=== PATIENT | female | born 1940 | race Caucasian/White ===

== ENCOUNTER 2023-09-23 00:21 | Inpatient (IN) | payer OTHER, SELFPAY ==
[2023-09-22] VITALS (25 sets, daily range): BP systolic 113–206; BP diastolic 74–134; PULSE 2–145
--- NOTE | 2023-09-22 20:56 | ED.GENMED ---
History of Present Illness
<Vianca Ty PA-C - Last Filed: 09/23/23 00:53>
General
Chief Complaint: Breathing Problem
Source: patient
Exam Limitations: none
Time Seen by Provider: 09/22/23 20:36
Nursing documentation reviewed up to this point in time: agreed with
Travel History
Have you had any contact with someone who has COVID-19?: Yes
Comment: exposure at [facility]
Do you have any symptoms of coronavirus? Fever > 100 degrees, chills, cough, shortness of breath, sore throat, loss of taste or smell, muscle aches, or headache?: Unable to Answer
History of Present Illness
History of Present Illness:
This is a 83-year-old female who is arriving via EMS in acute respiratory distress. She comes from [facility]. She is in acute respiratory distress and has oral secretions. She is not able to provide much history due to her severe respiratory
distress, however it seems that the symptoms of shortness of breath started today and have rapidly gotten worse as the day progressed. Her roommate and [facility] did test positive for COVID. Patient has never had anything like this before.
Past History
<Vianca Ty PA-C - Last Filed: 09/23/23 00:53>
Past History
ED Past Medical History: Hypercholesterolemia
ED Past Surgical History: Orthopedic (R hip surg.)
Social History
Tobacco: Non-smoker
Alcohol: None
Personal:
Living: alone
Review of Systems
<Vianca Ty PA-C - Last Filed: 09/23/23 00:53>
Review of Systems
All Other Systems: ROS reviewed and negative except as documented in HPI and ROS
Phy Exam
<Vianca Ty PA-C - Last Filed: 09/23/23 00:53>
Physical Exam
Physical Exam:
General: Patient appears very ill, in acute respiratory distress, and is very anxious
Skin: Patient is very diaphoretic. Patient has significant bilateral non-pitting lower extremity edema. No rashes or lesions
Cardiac: Tachycardia, systolic murmur
Pulm: Patient demonstrates pursed lip breathing, audible rhonchi, demonstrates air hunger. Diffuse rhonchi heard in every lung base.
Scores
<Vianca Ty PA-C - Last Filed: 09/23/23 00:53>
Heart Failure Risk
Heart Failure Risk Score: Yes
History of Stroke or TIA: No
History of intubation for respiratory distress: Yes
Heart rate on ED arrival >/= 110: Yes
SaO2 <90% on arrival on room air: Yes
HR >/=110 during 3min walk test (or too ill to perform test): No
ECG has acute ischemic changes: No
Urea >/=12mmol/L (BUN 33.6mg/dL): No
Serum CO2>/=35mmol/L: No
Troponin I or T elevated to MD Level (0.4mg/dL): No
NT-proBNP >/=5,000ng/L (5,000pg/ml): Yes
HF Risk Score: 4
Admission Status: HIGH RISK 26.1% Consider SNF treatment or admission to hospital
Course
<Vianca Ty PA-C - Last Filed: 09/23/23 00:53>
Orders/Labs/Results
Orders:
Orders
09/22/23 20:44
CR Chest Portable - 1 View Urgent
Comment:
Reason For Exam: shortness of breath
Reason Study Needs to be Portable: Patient Unstable
09/22/23 20:48
Bipap [RESP] Urgent
Patient to use own unit?: No
Inspiratory Pressure (cm H2O): 12
Expiratory Pressure (cm H2O): 5
09/22/23 20:52
Albuterol Sulfate [Ventolin Nebules] 7.5 mg INH R NOW STA
Dexamethasone Sod Phosphate [Decadron] 10 mg IV NOW STA
Ipratropium Nebs [Atrovent Nebules] 1 mg INH R NOW STA
09/22/23 21:17
Furosemide [Lasix] 100 mg .ROUTE .STK-MED ONE
Furosemide [Lasix] 80 mg IV NOW STA
09/22/23 21:20
Complete Blood Count/With Diff Urgent
Comprehensive Metabolic Panel Urgent
Lactic Acid Q4H
Comment: CANCEL 2nd LACTIC ACID IF 1st LACTIC ACID IS LESS THAN 2
Magnesium Urgent
NT-proBNP Urgent
Troponin I Urgent
Blood Culture Q30M
MICHELLE Source: Blood/Venous
Specimen Description:
Blood Culture Q30M
MICHELLE Source: Blood/Venous
Specimen Description:
09/22/23 21:32
Piperacillin/Tazo 3.375 Gram [Zosyn] 3.375 gram in 50 ml IV NOW
09/22/23 21:35
Vancomycin 1 Gram/200 ml [Vancocin] 1 gram in 200 ml IV NOW
09/22/23 21:44
COVID-19 Antigen Urgent
Source: Nasal Swab
Influenza A+B Rapid Molecular Urgent
MICHELLE Source: Nasal Swab
Specimen Description:
09/22/23 21:51
Venous Blood Gas Urgent
%Oxygen/Room Air: BiPAP
09/22/23 22:07
Lorazepam [Ativan] 0.5 mg IV NOW STA
09/22/23 22:10
PTT Routine
Prothrombin Time Routine
09/22/23 22:14
Respiratory Syncytial Virus Urgent
MICHELLE Source: Nasal Swab
Specimen Description:
Date Specimen was Collected: 09/22/23
Time Specimen was Collected: 21:57
09/22/23 22:38
CR Chest Portable - 1 View Stat
Comment:
Reason For Exam: post intubation
Reason Study Needs to be Portable: Patient Unstable
09/22/23 22:41
Propofol 1,000,000 Mcg/100 ml [Diprivan] 1,000,000 mcg in 100 ml IV NOW
Indication:: Light Sedation
Begin Infusion:: Now
Goal:: RASS 0 to -2
Maximum dose in mcg/kg/min:: 50
Initial dose based on RASS:: Yes
If RASS is:: +1 or pt hemodynamically unstable (SBP < 90mmHg), initiate at 10 mcg/kg/min
If RASS is:: +2, initiate at 20 mcg/kg/min
If RASS is:: greater than or equal to +3, initiate at 30 mcg/kg/min
Titration Instructions:: Titrate by 5-10 mcg/kg/min every 5 minutes until RASS 0 to -2 achieved.
Taper Instructions:: If RASS is at or below goal for 4 consecutive hours decrease infusion by
Taper Instructions:: 5-10 mcg/kg/min every 2 hours to off.
Over-sedation Instructions:: If CPOT 0-2 (at goal) AND RASS -3 to -5 (below goal) decrease sedative by
Over-sedation Instructions:: 50% first. If pain score remains at goal and RASS remains below goal in
Over-sedation Instructions:: 1 hour, decrease opioid infusion by 50%.
Notify provider:: immediately if patient exhibits signs/symptoms of propofol-related
Notify provider:: infusion syndrome.
Additional Instructions:: Patient MUST be mechanically ventilated.
Ventilator Initial Settings [RESP] Urgent
Tidal Volume: 500
Rate: 14
FIO2: 100
PEEP: 10
09/22/23 22:42
Triglycerides Routine
Comment: baseline levels with propofol infusion
09/22/23 23:06
Wallis Catheter [Catheter- Indwelling] As Directed
Reason for insertion: I&O's Critical Care
Assess insertion reason daily.Remove if no longer applicable: Yes
09/22/23 23:09
Admit/Transfer Patient As Directed
Co-Sign Provider:
Level of Care: Inpatient admission
Assign to:: ICU
Physician / Group: Sidney
Diagnosis: Acute Hypoxemic Resp Failure
Reason for Hospitalization: Acute Resp Failure
Expected length of stay greater than two midnights?: Yes
ELOS- Estimated Length of Stay in days: 5
I certify the patient meets the requirements for IP care: Yes
09/22/23 23:10
Code Status As Directed
Resuscitation Status: Do not resuscitate
Reached after discussion with pt or family/Healthcare POA: Yes
09/22/23 23:15
Nitroglycerin 100 mg/250 ml [Nitroglycerin Premix] 100 mg in 250 ml IV PER PROTOCOL
Initial dose in mcg/min, then titrate:: 5
Titrate to keep:: SBP < 160 mmHg
Titrate by mcg/min:: 5 mcg/min, may increase by 10 mcg/min if dose > 20 mcg/min
Frequency of titrations (minutes):: every 3-5 minutes
Maximum dose in mcg/min:: 200
Begin to taper infusion when:: Remained at goal for 2hrs
Taper by mcg/min:: 5 mcg/min
Frequency of taper (minutes) if patient maintains goal:: 30
Taper to off?: Yes
If infusion off & no longer maintaining goal:: Contact Provider
09/22/23 23:17
Vancomycin 1 Gram/200 ml [Vancocin] 1 gram in 200 ml .ROUTE .STK-MED
09/22/23 23:28
DNR Bracelet Application ONCE
09/23/23 01:00
Lactic Acid Q4H
Comment: CANCEL 2nd LACTIC ACID IF 1st LACTIC ACID IS LESS THAN 2
Abnormal Lab Results
01/26/24 01/26/24 01/26/24
21:20 21:44 21:51
WBC 11.9 H 10^3/uL
(4.8-10.8)
RBC 5.71 H 10^6/uL
(4.20-5.40)
Hgb 16.9 H g/dL
(12.0-16.0)
Hct 53.7 H %
(37.0-47.0)
MCHC 31.5 L g/dL
(33.0-37.0)
RDW 15.1 H %
(11.5-14.5)
MPV 12.6 H fL
(7.4-10.4)
Abs Immat Gran (auto) 0.1 H 10^3/uL
(0-0.05)
Absolute Neuts (auto) 8.2 H 10^3/uL
(1.4-6.5)
Absolute Monos (auto) 0.7 H 10^3/uL
(0.1-0.6)
Immature Gran % 0.7 H %
(0-0.5)
Lymphocytes % 20.0 L %
(20.5-51.1)
VBG pH 7.21 L
(7.32-7.43)
VBG pCO2 54 H mmHg
(35-48)
VBG HCO3 21.6 L mmol/L
(22-27)
BUN 23 H mg/dl
(7-17)
Creatinine 1.3 H mg/dL
(0.6-1.0)
Glucose 221 H mg/dl
(70-99)
Lactic Acid 4.9 H* mmol/L
(0.7-2.0)
Magnesium 2.5 H mg/dl
(1.6-2.3)
Alkaline Phosphatase 140 H U/L
(38-126)
SARS-CoV-2 Antigen Positive A
(Negative)
09/22/23 21:20
09/22/23 21:20
Vital Signs
Initial and Last Documented VS:
Initial Vital Signs
Pulse Ox
90
09/22/23 20:41
Last Documented Vital Signs
Temp Pulse Resp BP Pulse Ox
100.3 F 125 16 135/88 84
09/22/23 23:50 09/22/23 23:55 09/22/23 23:55 09/22/23 23:55 09/22/23 23:55
<Joselo Miles, DO - Last Filed: 09/22/23 22:44>
Orders/Labs/Results
Orders:
Orders
09/22/23 20:44
CR Chest Portable - 1 View Urgent
Comment:
Reason For Exam: shortness of breath
Reason Study Needs to be Portable: Patient Unstable
09/22/23 20:48
Bipap [RESP] Urgent
Patient to use own unit?: No
Inspiratory Pressure (cm H2O): 12
Expiratory Pressure (cm H2O): 5
09/22/23 20:52
Albuterol Sulfate [Ventolin Nebules] 7.5 mg INH R NOW STA
Dexamethasone Sod Phosphate [Decadron] 10 mg IV NOW STA
Ipratropium Nebs [Atrovent Nebules] 1 mg INH R NOW STA
09/22/23 21:17
Furosemide [Lasix] 100 mg .ROUTE .STK-MED ONE
Furosemide [Lasix] 80 mg IV NOW STA
09/22/23 21:20
Complete Blood Count/With Diff Urgent
Comprehensive Metabolic Panel Urgent
Lactic Acid Q4H
Comment: CANCEL 2nd LACTIC ACID IF 1st LACTIC ACID IS LESS THAN 2
Magnesium Urgent
NT-proBNP Urgent
Troponin I Urgent
Blood Culture Q30M
MICHELLE Source: Blood/Venous
Specimen Description:
Blood Culture Q30M
MICHELLE Source: Blood/Venous
Specimen Description:
09/22/23 21:32
Piperacillin/Tazo 3.375 Gram [Zosyn] 3.375 gram in 50 ml IV NOW
09/22/23 21:35
Vancomycin 1 Gram/200 ml [Vancocin] 1 gram in 200 ml IV NOW
09/22/23 21:44
COVID-19 Antigen Urgent
Source: Nasal Swab
Influenza A+B Rapid Molecular Urgent
MICHELLE Source: Nasal Swab
Specimen Description:
09/22/23 21:51
Venous Blood Gas Urgent
%Oxygen/Room Air: BiPAP
09/22/23 22:07
Lorazepam [Ativan] 0.5 mg IV NOW STA
09/22/23 22:10
PTT Routine
Prothrombin Time Routine
09/22/23 22:14
Respiratory Syncytial Virus Urgent
MICHELLE Source: Nasal Swab
Specimen Description:
Date Specimen was Collected: 09/22/23
Time Specimen was Collected: 21:57
09/22/23 22:38
CR Chest Portable - 1 View Stat
Comment:
Reason For Exam: post intubation
Reason Study Needs to be Portable: Patient Unstable
09/22/23 22:41
Propofol 1,000,000 Mcg/100 ml [Diprivan] 1,000,000 mcg in 100 ml IV NOW
Indication:: Light Sedation
Begin Infusion:: Now
Goal:: RASS 0 to -2
Maximum dose in mcg/kg/min:: 50
Initial dose based on RASS:: Yes
If RASS is:: +1 or pt hemodynamically unstable (SBP < 90mmHg), initiate at 10 mcg/kg/min
If RASS is:: +2, initiate at 20 mcg/kg/min
If RASS is:: greater than or equal to +3, initiate at 30 mcg/kg/min
Titration Instructions:: Titrate by 5-10 mcg/kg/min every 5 minutes until RASS 0 to -2 achieved.
Taper Instructions:: If RASS is at or below goal for 4 consecutive hours decrease infusion by
Taper Instructions:: 5-10 mcg/kg/min every 2 hours to off.
Over-sedation Instructions:: If CPOT 0-2 (at goal) AND RASS -3 to -5 (below goal) decrease sedative by
Over-sedation Instructions:: 50% first. If pain score remains at goal and RASS remains below goal in
Over-sedation Instructions:: 1 hour, decrease opioid infusion by 50%.
Notify provider:: immediately if patient exhibits signs/symptoms of propofol-related
Notify provider:: infusion syndrome.
Additional Instructions:: Patient MUST be mechanically ventilated.
Ventilator Initial Settings [RESP] Urgent
Tidal Volume: 500
Rate: 14
FIO2: 100
PEEP: 10
09/22/23 22:42
Triglycerides Routine
Comment: baseline levels with propofol infusion
09/22/23 23:06
Wallis Catheter [Catheter- Indwelling] As Directed
Reason for insertion: I&O's Critical Care
Assess insertion reason daily.Remove if no longer applicable: Yes
09/22/23 23:09
Admit/Transfer Patient As Directed
Co-Sign Provider:
Level of Care: Inpatient admission
Assign to:: ICU
Physician / Group: Sidney
Diagnosis: Acute Hypoxemic Resp Failure
Reason for Hospitalization: Acute Resp Failure
Expected length of stay greater than two midnights?: Yes
ELOS- Estimated Length of Stay in days: 5
I certify the patient meets the requirements for IP care: Yes
09/22/23 23:10
Code Status As Directed
Resuscitation Status: Do not resuscitate
Reached after discussion with pt or family/Healthcare POA: Yes
09/22/23 23:15
Nitroglycerin 100 mg/250 ml [Nitroglycerin Premix] 100 mg in 250 ml IV PER PROTOCOL
Initial dose in mcg/min, then titrate:: 5
Titrate to keep:: SBP < 160 mmHg
Titrate by mcg/min:: 5 mcg/min, may increase by 10 mcg/min if dose > 20 mcg/min
Frequency of titrations (minutes):: every 3-5 minutes
Maximum dose in mcg/min:: 200
Begin to taper infusion when:: Remained at goal for 2hrs
Taper by mcg/min:: 5 mcg/min
Frequency of taper (minutes) if patient maintains goal:: 30
Taper to off?: Yes
If infusion off & no longer maintaining goal:: Contact Provider
09/22/23 23:17
Vancomycin 1 Gram/200 ml [Vancocin] 1 gram in 200 ml .ROUTE .STK-MED
09/22/23 23:28
DNR Bracelet Application ONCE
09/23/23 01:00
Lactic Acid Q4H
Comment: CANCEL 2nd LACTIC ACID IF 1st LACTIC ACID IS LESS THAN 2
Abnormal Lab Results
09/22/23 09/22/23 09/22/23
21:20 21:44 21:51
WBC 11.9 H 10^3/uL
(4.8-10.8)
RBC 5.71 H 10^6/uL
(4.20-5.40)
Hgb 16.9 H g/dL
(12.0-16.0)
Hct 53.7 H %
(37.0-47.0)
MCHC 31.5 L g/dL
(33.0-37.0)
RDW 15.1 H %
(11.5-14.5)
MPV 12.6 H fL
(7.4-10.4)
Abs Immat Gran (auto) 0.1 H 10^3/uL
(0-0.05)
Absolute Neuts (auto) 8.2 H 10^3/uL
(1.4-6.5)
Absolute Monos (auto) 0.7 H 10^3/uL
(0.1-0.6)
Immature Gran % 0.7 H %
(0-0.5)
Lymphocytes % 20.0 L %
(20.5-51.1)
VBG pH 7.21 L
(7.32-7.43)
VBG pCO2 54 H mmHg
(35-48)
VBG HCO3 21.6 L mmol/L
(22-27)
BUN 23 H mg/dl
(7-17)
Creatinine 1.3 H mg/dL
(0.6-1.0)
Glucose 221 H mg/dl
(70-99)
Lactic Acid 4.9 H* mmol/L
(0.7-2.0)
Magnesium 2.5 H mg/dl
(1.6-2.3)
Alkaline Phosphatase 140 H U/L
(38-126)
SARS-CoV-2 Antigen Positive A
(Negative)
09/22/23 21:20
09/22/23 21:20
Vital Signs
Initial and Last Documented VS:
Initial Vital Signs
Pulse Ox
90
09/22/23 20:41
Last Documented Vital Signs
Temp Pulse Resp BP Pulse Ox
100.3 F 125 16 135/88 84
09/22/23 23:50 09/22/23 23:55 09/22/23 23:55 09/22/23 23:55 09/22/23 23:55
<Joselo Miles DO - Last Filed: 09/22/23 22:44>
Intubations
Procedure completed by: Joselo Miles DO
Method of Intubation: glidescope
Tube size (cm): 7.5
Placement confirmed by: auscutation, CXR, capnography and direct visualization
Breath sounds after intubation: equal
Intubation complications: no complications
<Vianca Ty PA-C - Last Filed: 09/23/23 00:53>
MDM/Problems Addressed
Differential Diagnosis Includes:
Differentials include pneumonia, ARDS, acute CHF, sepsis, flash pulmonary edema, COPD
MDM/Problems Addressed:
shortness of breath
Respiratory failure
Chronic conditions affecting care:
Hypertension, hyperlipidemia, anxiety, depression, hypothyroidism
<Vianca Ty PA-C - Last Filed: 09/23/23 00:53>
*Radiology
Radiology exam reviewed: preliminary read by ED provider (Bilateral infiltrates)
*Pulse Oximetry
Patient hypoxic: yes
*EKG
Interpreted by ED Provider?: Yes
EKG Intrepretation Date: 09/23/23
Interpretation: abnormal
Comparison EKG: changes noted (new non-specific ST segment abnormality )
Heart Rate: 141
Rate: tachycardiac
Rhythm: sinus
[place]: normal axis
Interval: normal interval
QRS Pattern: normal QRS
Ischemia: non-specific ST changes
Data Reviewed
Review of Other/Old Records Reveals: Records (No recent hospitalizations) and Discharge Summary (Reviewed discharge summary from March 2021 for hyperkalemia)
Source: patient
Prescriptions/Medications Considered But Not Given:
Patient presented with severe respiratory distress, we had to initiate BiPAP. Patient was failing BiPAP and multiple reassessments however patient stated that she was DNI and did not want to be intubated. As patient further decline, she changed
her mind and decided that she would like to be intubated.
Further Testing Considered But Not Given:
n/a
<Joselo Miles DO - Last Filed: 09/22/23 22:44>
*Critical Care Note
Total Time (30-74mins, 75-104mins- exclusive of procedures): 35 min
comment:
The high probability of a clinically significant, sudden or life threatening deterioration of the cardiopulmonary system(s) required my full and direct attention, intervention and personal management. The aggregate critical care time was 35 minutes.
This time is in addition to time spent performing reported procedures but includes the following:
[x] Data Review and interpretation
[x] Patient assessment and monitoring of vital signs
[x] Documentation
[x] Medication orders and management
<Vianca Ty PA-C - Last Filed: 09/23/23 00:53>
Patient Management
Escalation/DeEscalation of care consider admission/obs:
This is a 83-year-old female with a past medical history of hypertension, hypothyroidism, anxiety who presents today via EMS in severe respiratory distress. She was 88% on room air upon arrival. She was feeling supplemental oxygen therapy via
nasal cannula and mask and so we initiated BiPAP. Patient was repeatedly failing BiPAP however patient was do not intubate. When reassessing her, she progressed to decline and not make any improvements with BiPAP. There was an indication for
intubation very early on however patient initially refused and after. Time, she finally requested intubation. She tested positive for COVID and her chest x-ray reveals bilateral pneumonia. She was successfully intubated, started on IV
antibiotics, steroids, Lasix, and referred for ICU admission.
<Joselo Miles DO - Last Filed: 09/22/23 22:44>
Update Note
Update Note:
10:10 PM patient still doing poorly on BiPAP. I again urged and suggested intubation and ventilator or else she is going to quickly. At this point, patient gave verbal consent to be intubated
10:43 PM patient intubated without difficulty.
ED Attending Note
<Vianca Ty PA-C - Last Filed: 09/23/23 00:53>
-
Portions of this chart may have been created with voice recognition software.� Occasional wrong word or��sound alike� substitutions may have occurred due to the inherent limitations of voice recognition software.
<Joselo Miles, DO - Last Filed: 09/22/23 22:44>
ED Attending Note
Patient seen and examined by attending physician: Yes
I performed the substantive portion of visit, reviewed & personally made and approve the management plan that is documented in note by myself or REINA.: Yes
ED Attending Note:
I have seen and evaluated the patient with a [id number] encounter. I have spoken to the advance practicer provider and involved in the medical history, the physical exam, medical decision making.
Evaluation and management service: agree unless noted differently below.
Results interpretation: agree unless noted differently below.
Focused HPI: 83-year-old female presenting with worsening shortness of breath. Patient states she was exposed to COVID recently. On arrival, patient significantly short of breath. She has air hunger. She has crackles and rhonchi throughout.
Patient placed on a nonrebreather. Patient still doing poorly and respiratory called for BiPAP. Patient able to communicate. I discussed my concern for her significant respiratory distress and we discussed possible intubation if symptoms persist.
I also discussed my concern for respiratory arrest and CPR. Patient refused either 1 of those. Patient appears to have the capacity to make the decision
Physical exam: Air hunger, rhonchorous breath sounds and crackles at bases. Edematous legs.
Medical Decision Making: Patient placed on BiPAP. Patient currently in hypoxic respiratory distress. Outpatient chart reviewed and patient is on Lasix. Will give 80 mg IV Lasix. Will start hour-long nebulizer treatment and IV steroids.
9:40 PM while on BiPAP, patient still struggling. At this time, x-ray concerning for multilobar pneumonia. Will start antibiotics. I again asked the patient if we could intubate and place on ventilator. She again refused.
Discharge Plan
Interventions
Interventions:
*Risk Screen - Suicide Last Done: 09/22/23 20:45
*General Assessment Last Done: 09/22/23 20:45
*Neglect/Abuse Screening Last Done: 09/22/23 20:45
ED- Fall Risk Assessment Last Done: 09/22/23 20:55
*ED COVID-19 Vaccine History Last Done: 09/22/23 20:55
*Nursing Disposition Last Done: 09/23/23 00:31
ED- Cardiac Assessment Last Done: 09/22/23 20:55
ED- Pulmonary Assessment Last Done: 09/22/23 20:55
[2023-09-22] MEDS: ATROVENT NEBULES 1 MG INH (21:15)
[2023-09-22] MEDS: VENTOLIN NEBULES 7.5 MG INH (21:16)
[2023-09-22] MEDS: DECADRON 10 MG IV (21:16)
[2023-09-22] MEDS: LASIX 80 MG IV (21:27)
[2023-09-22 21:34] LABS: % Eosinophils 3.3 % (0-6); % Immature Granulocytes 0.7 % (0-0.5); % Monocytes 5.9 % (1.7-9.3); % Neutrophils 69.1 % (42.2-75.2); Absolute Basophils 0.1 10^3/uL (0-0.2); Absolute Eosinophils 0.4 10^3/uL (0-0.7); Absolute Immature Granulocytes 0.1 10^3/uL (0-0.05); Absolute Lymphocytes 2.4 10^3/uL (1.2-3.4); Absolute Monocytes 0.7 10^3/uL (0.1-0.6); Absolute Neutrophils 8.2 10^3/uL (1.4-6.5); Hematocrit 53.7 % (37.0-47.0); Hemoglobin 16.9 g/dL (12.0-16.0); Mean Corp Hgb Conc. 31.5 g/dL (33.0-37.0); Mean Corpuscular Hgb 29.6 pg (27.0-31.0); Mean Platelet Volume 12.6 fL (7.4-10.4); Nucleated Red Blood Cells % 0 %; Platelet Count 289 10^3/uL (130-400); Red Blood Cell Count 5.71 10^6/uL (4.20-5.40); Red Cell Dist. Width 15.1 % (11.5-14.5); White Blood Cell Count 11.9 10^3/uL (4.8-10.8)
[2023-09-22 21:53] LABS: ALT (SGPT) 26 U/L (0-35); AST (SGOT) 33 U/L (14-36); Albumin 4.5 g/dl (3.5-5.0); Alkaline Phosphatase 140 U/L (38-126); Blood Urea Nitrogen 23 mg/dl (7-17); Calcium 9.6 mg/dl (8.4-10.2); Carbon Dioxide 24 mmol/L (22-30); Chloride 102 mmol/L (98-107); Glucose 221 mg/dl (70-99); Magnesium 2.5 mg/dl (1.6-2.3); Sodium 137 mmol/L (135-145); Total Bilirubin 0.7 mg/dl (0.2-1.3); Total Protein 8.2 g/dl (6.3-8.2); eGFR 41.31
[2023-09-22] MEDS: ZOSYN 50 IV (21:55)
[2023-09-22 21:59] LABS: Lactic Acid 4.9 mmol/L (0.7-2.0)
[2023-09-22 22:03] LABS: NT-proBNP 11900 pg/ml; Troponin I 0.031 ng/ml
[2023-09-22 22:09] LABS: COVID-19 Antigen Positive (Negative)
[2023-09-22 22:10] LABS: Venous Blood Gas HCO3 21.6 mmol/L (22-27); Venous Blood Gas O2 Sat % 66.8 %; Venous Blood Gas pCO2 54 mmHg (35-48); Venous Blood Gas pH 7.21 (7.32-7.43); Venous Blood Gas pO2 44 mmHg (30-50)
[2023-09-22 22:38] LABS: PT 13.4 Sec (11.4-14.6)
[2023-09-22 22:39] LABS: APTT 23.6 Sec (23.4-35.0)
--- NOTE | 2023-09-22 23:30 | HPS.HSE ---
Family Physician
-
Family Physician: Loulou Doran
Chief Complaint
-
SOB
History of Present Illness
Patient is an 83y F with PMH significant for hypothyroidism and anxiety / depression who presents to ED via EMS in respiratory distress. Per family, patient was seen well as recently as Monday of this week. There was no known report of cough,
fevers / chills, etc. Patient arrived to the ED this evening in severe respiratory distress. Patient was severely hypoxemic in the ED with saturations into the 60s at times. She did not improve with BiPAP and was intubated in the ED and placed on
ventilatory support.
At the time of my examination, patient was sedated on the ventilator. Despite vent support, her SpO2 remains in the 70s.
Per family, patient has no known history of heart failure or other cardiac issues.
Medical History
Past Medical History
Past Medical History: Reports Other
Additional Past Medical History:
Hypothyroidism
Anxiety / Depression
Dyslipidemia
Obesity
Past Surgical History: Reports Other
Additional Past Surgical History:
Bilateral Wrist ORIF
Bilateral EDIS (2x each)
Social History
Tobacco: Former Smoker (Quit > 50 years ago.)
Alcohol: None
Drug: None
Living: Other ([facility])
Family History
Family History: Not pertinent
Allergies / Home Medications
Allergies reflects when Allergies were last updated in [facility].
Home Medications with original date entered in [facility]
Allergy/Medication List:
Allergies
Allergy/AdvReac Type Severity Reaction Status Date / Time
No Known Allergies Allergy Verified 01/19/17 11:29
Home Medications
atorvastatin 20 mg tablet 20 mg PO QPM High cholesterol 03/11/21
amlodipine 5 mg tablet (Norvasc) 5 mg PO DAILY #30 tabs 03/13/21
aripiprazole 2 mg tablet 2 mg PO HS 09/22/23
furosemide 20 mg tablet (Lasix) 20 mg PO DAILY 09/22/23
levothyroxine 137 mcg tablet (Synthroid) 137 mcg PO DAILY 09/22/23
potassium chloride 10 mEq tablet,extended release 10 meq PO DAILY 09/22/23
venlafaxine 150 mg capsule,extended release 24 hr (Effexor XR) 450 mg PO DAILY 09/22/23
Review of Systems
-
Unable to obtain full review of systems at this time due to: Patient Intubation
Physical Exam
Vital Signs
Vital Signs
Temp Pulse Resp BP Pulse Ox
100.0 F 136 16 195/123 76
09/22/23 20:45 09/22/23 23:00 09/22/23 23:00 09/22/23 23:00 09/22/23 23:00
Physical Exam
General: Other (83y F sedated on vent.)
HEENT: Moist mucous membranes, PERRLA and Other (ETT in place. )
Respiratory: Other (Diffuse rales throughout all lung meeks. No wheezing.)
Cardiac: S1/S2 and Tachycardia; No Murmur
GI: Soft, Non Tender, Non Distended, Normal Bowel Sounds and Other (Obese)
Musculoskeletal: No Clubbing, No Cyanosis and Other (LE are large but without pitting edema.)
Neuro: Sedated
Laboratory Results
-
09/22/23 21:20
09/22/23 21:20
Laboratory Results
PT 13.4 Sec (11.4-14.6) 09/22/23 22:10
INR 1.00 09/22/23 22:10
APTT 23.6 Sec (23.4-35.0) 09/22/23 22:10
Lactic Acid 4.9 mmol/L (0.7-2.0) H* 09/22/23 21:20
Total Bilirubin 0.7 mg/dl (0.2-1.3) 09/22/23 21:20
AST 33 U/L (14-36) 09/22/23 21:20
ALT 26 U/L (0-35) 09/22/23 21:20
Alkaline Phosphatase 140 U/L (38-126) H 09/22/23 21:20
Troponin I 0.031 ng/ml 09/22/23 21:20
Impression/Plan
-
A/P: Patient is an 83y F with PMH significant for hypothyroidism and anxiety / depression who presents to ED in respiratory distress.
Acute Hypoxemic Respiratory Failure
VDRF
- Admit to ICU for further evaluation and treatment.
- Suspect that symptoms are multifactorial due to acute COVID pneumonia and CHF.
- Continue vent support and adjust settings as needed / able to improve oxygenation.
- Pulmonary / Bridge Contractor evaluation.
- Treat individual issues as outlined below.
Acute COVID-19 Pneumonia
- COVID positive in the ED today.
- Patient is vaccinated x multiple doses according to assisted living paperwork.
- Seems unlikely that entire picture is secondary to severe COVID - suspect significant component of CHF as well.
- IV dexamethasone daily.
- Would begin Remdesivir given severe illness.
- Pulm evaluation as noted above.
- Follow proper precautions.
Acute (? on chronic) HF - Unknown Type
Hypertensive Emergency
- Suspect significant degree of CHF - likely exacerbated by acute COVID illness.
- Family denies any history of known CHF; however, note that patient is on Lasix per med list - which she was not on at the time of her last visit here in 2020.
- Son states that most recent admission was to [facility] in June for a fall - will try to obtain those records for review.
- IV Lasix BID and follow for effective diuresis.
- Begin IV NTG gtt now given severe hypoxemia and marked hypertension.
- Update Echo (February 2023 with LVEF 55-60 and mild )
- Cardiology evaluation.
- Additional IV medications as needed for BP control if pressure does not significantly improve with diuresis and IV NTG.
Lactic Acidosis
- Suspect this is mediated on hypoxemia > hypovolemia given evidence of volume overload, etc.
- Avoid IVFs. Correct hypoxemia as noted above.
- Follow for improvement.
JUAN
- SCr = 1.3 compared to baseline of 1.0.
- Follow for changes / return to baseline with IV diuresis as noted above.
- [place] for critical care I/Os.
Hypothyroidism
- Check TFTs.
- Consider IV T4 replacement if necessary while intubated.
- Otherwise, resume PO replacement after extubation.
Anxiety / Depression
- Current intubated and sedated.
- Can resume usual meds once appropriate.
DVT Prophylaxis: Lovenox
Code Status: Reviewed with son in detail. Patient had previously been DNR on 2020 admission and son would like to honor those wishes.
[2023-09-22] MEDS: VANCOCIN 200 IV (23:33)
[2023-09-22] MEDS: DIPRIVAN 100 IV (23:33)
[2023-09-23] VITALS (89 sets, daily range): BP systolic 87–152; BP diastolic 48–112; BMI 39.2; BMI 39.3
[2023-09-23 00:47] LABS: Triglycerides 172 mg/dl (10-149)
--- NOTE | 2023-09-23 00:47 | W.PN.SEPSIS ---
Sepsis
Vital Signs
Temp Pulse Resp BP Pulse Ox
100.3 F 125 16 135/88 84
09/22/23 23:50 09/22/23 23:55 09/22/23 23:55 09/22/23 23:55 09/22/23 23:55
Physical Exam
Physical Exam:
A focused exam was performed after fluid resuscitation.
Capillary Refill
Bilateral Upper Extremity:
Aarti Time: Less than 3 sec
Bilateral Lower Extremity:
Aarti Time: Less than 3 sec
Pulse Evaluation
Bilateral Radial:
Pulse Evaluation: Present
Bilateral Dorsalis Pedis:
Pulse Evaluation: Present
[2023-09-23] MEDS: TYLENOL/FEVERALL 650 MG RECTAL ×4 (01:24→18:06)
--- NOTE | 2023-09-23 01:31 | PTCARENOTE ---
Patient arrived from ED, lightly sedated, withdrawals from pain, tolerating ventilator. Suctioned multiple times for scant duarte secretions. turned and repositioned. Diprivan gtt running through L wrist PIV, thermistor Wallis catheter patent for clear
yellow urine. Tylenol given as ordered. BL wrist restrains applied. HOB elevated and all extremities elevated on pillows.
[2023-09-23] MEDS: SUBLIMAZE 100 IV (01:35)
[2023-09-23 01:37] LABS: Lactic Acid 2.2 mmol/L (0.7-2.0)
[2023-09-23] MEDS: VEKLURY 250 MG IV ×2 (01:42→12:08)
[2023-09-23 01:54] LABS: Troponin I 0.231 ng/ml
[2023-09-23 02:17] LABS: TSH Reflex To Free T4 0.25 uIU/ml (0.47-4.68)
[2023-09-23 03:24] LABS: Free T4 2.01 ng/dl (0.78-2.19)
[2023-09-23] MEDS: NSS 30 IV ×2 (03:46→13:44)
[2023-09-23] MEDS: DIPRIVAN 100 IV ×3 (04:00→17:38)
[2023-09-23 04:50] LABS: B.E. -2.4 mmol/L; HCO3 21.7 mmol/L (21-28); O2 Saturation % 99.1 % (94-98); PCO2 35 mmHg (32-35); PO2 101 mmHg (83-108)
--- NOTE | 2023-09-23 05:27 | PTCARENOTE ---
Patient tolerating ventilator, tolerating mouth care. Lightly sedated, opens eyes to verbal prompts then falls asleep. Patient didn't verbally respond when asked if she had pain. assessment unchanged.
[2023-09-23 05:32] LABS: Hematocrit 48.1 % (37.0-47.0); Hemoglobin 15.9 g/dL (12.0-16.0); Mean Corp Hgb Conc. 33.1 g/dL (33.0-37.0); Mean Corpuscular Hgb 30.4 pg (27.0-31.0); Mean Platelet Volume 12.4 fL (7.4-10.4); Platelet Count 207 10^3/uL (130-400); Red Blood Cell Count 5.23 10^6/uL (4.20-5.40); Red Cell Dist. Width 14.8 % (11.5-14.5); White Blood Cell Count 16.6 10^3/uL (4.8-10.8)
[2023-09-23 05:47] LABS: Glucose - Point of Care 132 mg/dl (70-99)
[2023-09-23 06:00] LABS: Troponin I 0.585 ng/ml
[2023-09-23 06:01] LABS: ALT (SGPT) 36 U/L (0-35); AST (SGOT) 53 U/L (14-36); Albumin 3.2 g/dl (3.5-5.0); Alkaline Phosphatase 103 U/L (38-126); Blood Urea Nitrogen 33 mg/dl (7-17); Calcium 8.9 mg/dl (8.4-10.2); Carbon Dioxide 20 mmol/L (22-30); Chloride 106 mmol/L (98-107); Direct Bilirubin 0.5 mg/dl (0.0-0.4); Estimated Creatinine Clearance 35 ml/min; Glucose 149 mg/dl (70-99); Potassium 3.9 mmol/L (3.5-5.1); Sodium 138 mmol/L (135-145); Total Bilirubin 0.7 mg/dl (0.2-1.3); Total Protein 6.2 g/dl (6.3-8.2); Triglycerides 72 mg/dl (10-149); eGFR 34.79
--- NOTE | 2023-09-23 08:00 | PTCARENOTE ---
report received from nightshift RN. walking rounds completed. Pt arouses to voice, able to weakly squeeze hands on command. propofol infusing at 20 mcg/kg/min. generalized weakness throughout. ST on telemetry heart rate low 100s. weak pedal pulses.
+2 edema in lower extremities. 7.5 ETT, 23 at left lip. AC 100%, tv 500, peep 10, rate 16, sat 96%. lung sounds diminished, coarse in uppers. clear oral secretions, scant ETT secretions. hypoactive bowel sounds. abdomen obese round. ziegler draining
clear yellow urine. see worklist for full nursing assessment and interventions.
--- NOTE | 2023-09-23 08:11 | W.PN.HOSP.TC ---
Today's Communication/Plan
-
see plan
Assessment / Plan
Assessment / Plan
A/P:� Patient is an 83y F with PMH significant for hypothyroidism and anxiety / depression who presents to ED in respiratory distress.
Acute Hypoxemic Respiratory Failure
VDRF
�- s/p intubation on arrival
- likely multifactorial 2/2 covid and CHF
- vent management per Pulmonary
�- Director Of District Office consult
- sedation
�- Treat individual issues as outlined below.
Acute COVID-19 Pneumonia
�- COVID positive in the ED today.
�- Patient is vaccinated x multiple doses according to assisted living paperwork.
�- Seems unlikely that entire picture is secondary to severe COVID - suspect significant component of CHF as well.
�- IV dexamethasone daily.
�- Would begin Remdesivir given severe illness.
�- Pulm evaluation as noted above.
�- Follow proper precautions.
Acute (? on chronic) HF - Unknown Type
Hypertensive Emergency
�- Suspect significant degree of CHF - likely exacerbated by acute COVID illness.
�- Family denies any history of known CHF; however, note that patient is on Lasix per med list - which she was not on at the time of her last visit here in 2020.
�- Son states that most recent admission was to [facility] in June for a fall - will try to obtain those records for review.
�- IV Lasix BID and follow for effective diuresis.
�- Begin IV NTG gtt now given severe hypoxemia and marked hypertension.
�- Update Echo (February 2023 with LVEF 55-60 and mild )
�- Cardiology evaluation.
Lactic Acidosis
�- Suspect this is mediated on hypoxemia > hypovolemia given evidence of volume overload, etc.
�- Avoid IVFs.� Correct hypoxemia as noted above.
- improving overnight will avoid another blood stick today as won't plant changer
JUAN
�- creatinine slightly worse this AM; patient's creatinine was 1.2 in February 2021
- obtain urine studies
- continue diuresis as above
Hypothyroidism
�- Check TFTs.
�- Consider IV T4 replacement if necessary while intubated.
�- Otherwise, resume PO replacement after extubation.
Anxiety / Depression
- resume home meds post extubation
DVT Prophylaxis:� Lovenox
Code Status:� Per Dr. Little: Reviewed with son in detail.� Patient had previously been DNR on 2020 admission and son would like to honor those wishes.
Anticipated Discharge: > 48 hours
Subjective/Interval History
-
Date of Service: September 23, 2023
intubated, sedated
Objective Data
-
Labs:
Laboratory Results
09/22/23 09/22/23 09/22/23
21:20 21:44 22:10
WBC 11.9 H
Hgb 16.9 H
Hct 53.7 H
Plt Count 289
PT Cancelled Cancelled 13.4
INR Cancelled Cancelled 1.00
APTT Cancelled Cancelled 23.6
HCO3
Sodium 137
Potassium 4.0
Chloride 102
Carbon Dioxide 24
BUN 23 H
Creatinine 1.3 H
Glucose 221 H
Calcium 9.6
Total Bilirubin 0.7
AST 33
ALT 26
Alkaline Phosphatase 140 H
09/23/23 09/23/23 09/23/23
04:42 05:11 05:11
WBC 16.6 H
Hgb 15.9
Hct 48.1 H
Plt Count 207 D
PT
INR
APTT
HCO3 21.7
Sodium Cancelled 138
Potassium Cancelled
Chloride
Carbon Dioxide
BUN
Creatinine
Glucose
Calcium
Total Bilirubin
AST
ALT
Alkaline Phosphatase
09/23/23 09/23/23 09/23/23
05:11 05:11 05:11
WBC
Hgb
Hct
Plt Count
PT
INR
APTT
HCO3
Sodium
Potassium 3.9
Chloride Cancelled 106
Carbon Dioxide Cancelled 20 L
BUN Cancelled
Creatinine
Glucose
Calcium
Total Bilirubin
AST
ALT
Alkaline Phosphatase
09/23/23 09/23/23 09/23/23
05:11 05:11 05:11
WBC
Hgb
Hct
Plt Count
PT
INR
APTT
HCO3
Sodium
Potassium
Chloride
Carbon Dioxide
BUN 33 H
Creatinine Cancelled 1.5 H
Glucose Cancelled 149 H
Calcium Cancelled
Total Bilirubin
AST
ALT
Alkaline Phosphatase
09/23/23 09/23/23 09/23/23
05:11 05:11 05:11
WBC
Hgb
Hct
Plt Count
PT
INR
APTT
HCO3
Sodium
Potassium
Chloride
Carbon Dioxide
BUN
Creatinine
Glucose
Calcium 8.9
Total Bilirubin Cancelled 0.7
AST Cancelled 53 H
ALT Cancelled
Alkaline Phosphatase
09/23/23 09/23/23
05:11 05:11
WBC
Hgb
Hct
Plt Count
PT
INR
APTT
HCO3
Sodium
Potassium
Chloride
Carbon Dioxide
BUN
Creatinine
Glucose
Calcium
Total Bilirubin
AST
ALT 36 H
Alkaline Phosphatase Cancelled 103
Vital Signs:
Vital Signs
Temp Pulse Resp BP Pulse Ox
100.2 F 109 22 145/99 93
09/23/23 07:53 09/23/23 06:30 09/23/23 06:30 09/23/23 06:30 09/23/23 07:47
I&O
09/22/23 09/23/23 09/24/23
06:59 06:59 06:59
Intake Total 330.2 / 330.2
Output Total 1050 / 1050
Balance -719.8 / -719.8
Review of Systems
-
Unable to obtain full review of systems at this time due to: Patient Intubation
History Source: Patient
Physical Exam
-
General: Intubated
HEENT: PERRLA
Respiratory: Negative Wheezes
Cardiac: S1/S2
GI: Soft and Nontender
Musculoskeletal: No Edema
Skin: Warm and Dry; Negative Rash
Neuro: Sedated
Psych: Calm
Data Reviewed
-
Diagnostic Radiology: Report Reviewed by me
Labs: Labs Reviewed by me
[2023-09-23] MEDS: LASIX 40 MG IV ×2 (08:37→15:36)
[2023-09-23] MEDS: MIRALAX TUBE (08:37)
[2023-09-23] MEDS: PROTONIX IV 40 MG IV (08:38)
[2023-09-23] MEDS: SUBLIMAZE 50 MCG IV ×3 (08:38→15:35)
[2023-09-23] MEDS: NSS (PRESERVATIVE FREE) 10 ML IV (08:38)
--- NOTE | 2023-09-23 08:58 | CON.INTV ---
Consultation
Consultation Request
Date/Time Consultation Requested: 09/23/202343
Date/Time Consultation Performed: 09/23/2023845
Requesting Provider: Dr.. Little
Performing Provider: Dr. Rust
Reason for Consultation: Acute hypoxia on ventilator
Medical History
-
Chief Complaint: Shortness of breath
History of Present Illness:
83-year-old female former tobacco smoker with a past medical history of hypothyroidism, depression and hypertension/hyperlipidemia who presents with difficulty breathing which worsened throughout the day. She had a low-grade fever to 100.3 �F in
the ER, she was tachycardic to 131, RR was 14, BP 100/69, saturating in the low 70s and then placed onto BiPAP. She was in severe respiratory distress, with wheezing. Blood gas showed a pH 7.21 with pCO2 54. Lactate was 4.9. Leukocytosis to
11.9, Hb 16.9, platelets 289. COVID antigen was positive. Because of her continued shortness of breath with hypoxia and respiratory distress she was intubated in the ER, and sedated with propofol, started on antibiotics with vancomycin and Zosyn,
also diuresed with Lasix and given Decadron and DuoNebs. Her BP was elevated into the 190s for several hours and nitroglycerin was started on her. Given that the patient is not intubated she was transferred to the ICU for further care, and
food and beverage checker/pulmonary service is consulted for additional management/recommendations.
When saw the patient this morning she was arousable to voice, she was sedated on fentanyl and propofol. She was not on any pressors. BP 109/73, heart rate 97, saturating 93% on 70% FiO2, PEEP of 8. She is breathing at a rate of 16 with a VTe of
495mL and PIP of 22.
PMHx: Hypothyroidism, depression, hypertension, hyperlipidemia, former tobacco smoker
PSHx: Left hip replacement (1996), left hip revision (October 2003), broken wrists, right hip replacement (2009), section (1982), bilateral cataracts
Past Medical History
Past Medical History: Other (Above as per HPI)
Past Surgical History: Other (Above as per HPI)
Social History
Tobacco: Former Smoker
Alcohol: None
Drug: None
Employment: Retired
Family History
Family History: Hypertension
Allergies / Home Medications
Allergies
Allergy/AdvReac Type Severity Reaction Status Date / Time
No Known Allergies Allergy Verified 01/19/17 11:29
Home Medications
Medication Instructions Recorded Confirmed Last Taken Type
atorvastatin 20 mg tablet 20 mg PO QPM High cholesterol 03/11/21 09/22/23 Unknown History
amlodipine 5 mg tablet (Norvasc) 5 mg PO DAILY #30 tabs 03/13/21 09/22/23 Unknown Rx
aripiprazole 2 mg tablet 2 mg PO HS 09/22/23 09/22/23 Unknown History
furosemide 20 mg tablet (Lasix) 20 mg PO DAILY 09/22/23 09/22/23 Unknown History
levothyroxine 137 mcg tablet 137 mcg PO DAILY 09/22/23 09/22/23 Unknown History
(Synthroid)
potassium chloride 10 mEq 10 meq PO DAILY 09/22/23 09/22/23 Unknown History
tablet,extended release
venlafaxine 150 mg 450 mg PO DAILY 09/22/23 09/22/23 Unknown History
capsule,extended release 24 hr
(Effexor XR)
Review of Systems
-
Unable to Obtain full review of systems at this time due to: Patient Intubation
Vitals / Labs / Diagnostic Testing
Vital Signs
Temp Pulse Resp BP Pulse Ox
100.1 F 106 16 123/74 93
09/23/23 08:51 09/23/23 08:51 09/23/23 08:51 09/23/23 08:45 09/23/23 08:51
Lab Data
09/23/23 05:11
09/23/23 05:11
Laboratory Results
0109/22/23 09/22/23
21:20 21:44 22:10
PT Cancelled Cancelled 13.4
INR Cancelled Cancelled 1.00
APTT Cancelled Cancelled 23.6
pH
pCO2
pO2
HCO3
O2 Delivery Level
09/23/23
04:42
PT
INR
APTT
pH 7.40
pCO2 35
pO2 101
HCO3 21.7
O2 Delivery Level
Microbiology
09/22/23 22:14 Nasal Swab Respiratory Syncytial Virus Culture - Final
Negative for Respiratory Syncytial Virus.
A false negative result may be obtained with a specimen
collected early in the acute phase. If symptoms persist, a
new specimen should be tested.
09/22/23 21:44 Nasal Swab Influenza Types A & B (GISELLE) - Final
Negative for Influenza A & B, NAAT
Negative results must be combined with clinical observations
and patient history.
Nucleic Acid Amplification test (NAAT)performed on the
[facility] NOW platform.
Diagnostic Testing:
Physical Exam
-
HEENT: Normocephalic, Anicteric and Other (ETT in place)
Cardiovascular: S1/S2 and Peripheral Edema (trace BROOK)
Respiratory: Wheeze (Negative), Rales (Negative) and Other (Mechanical breath sounds bilaterally)
GI: Soft, Non Distended and Non Tender
Neurology: Tremors (Negative) and Other (Sedated; pupils 3mm and brisk b/l)
Skin: Warm and Dry
General: Comfortable, Chills (Negative) and Sweats (Negative)
Assessment
-
Assessment: 83-year-old female former tobacco smoker with a PMHx of hypothyroidism, depression and hypertension/hyperlipidemia who presents with difficulty breathing which worsened throughout the day. She was very short of breath and respiratory
distress and hypoxic which did not improve with BiPAP and she was intubated in the ER. Imaging showed bilateral pneumonia concerning for infection +/- pulmonary edema. BP was elevated requiring nitroglycerin drip. She was also diuresed.
Antibiotics were given in the ER as well as steroids and nebulized bronchodilators. She was transferred to the ICU for further care with food and beverage checker/pulmonary services consulted for additional management/recommendations.
Chronic conditions HEALTH PROMOTION COORDINATOR: Hypothyroidism, depression, hypertension, hyperlipidemia, former tobacco smoker
Impression:
#Acute hypoxemic respiratory failure with hypoxemia and hypercapnia due to bilateral pneumonia +/- acute pulmonary edema in setting of HTN crisis; DDx also includes ADHF
#Sepsis without shock due to bilateral pneumonia (suspect COVID-19 with bacterial superinfection)
#Hypertensive crisis briefly on nitro gtt --> BP now improved
#On mechanical ventilation
#COVID-19 pneumonia
#Acute kidney injury (baseline Cr approximately 1�1 0.2)
#Elevated troponin - likely due to demand ischemia with type II NJ
#Lactic acidosis
#Subclinical hyperthyroidism
Plan:
- Continue mechanical ventilation with daily SAT/SBT if clinically appropriate
- Titrate tidal volume, flow and PEEP to maintain plateau pressure <30, and optimize driving pressure to keep between 15�20
- Titrate FiO2 and PEEP to maintain SpO2 >90-94%
- Sedate with goal RASS -1 to -2
- Continue decadron and if O2 requirements worsen then I will step up to solumedrol 40mg IV q6hr
- Titrate FiO2 down to 50% and then would keep it there and then drop PEEP down to goal of 5
- Check TTE
- trend troponin until begins to downtrend
- Considering her SBP was in 190s, would keep her SBP between 140-160mmHg today until tomorrow
- Insert NGT for PO access
- Diurese and trend UOP, sCr --> keep net negative 1-1.5L per day over next 24-72 hrs as BP tolerates; Cardiology on board --> recs appreciated
- Maintain MAP >65
- Replete K>4, Mg>2, PO4>3
- Maintain euglycemia with goal BG 140�180
- DVT prophylaxis
Critical care statement: A total of 40 minutes of critical care time was provided for this patient today. This includes management of unstable vital signs, evaluation of the patient at bedside, reviewing the patient's pertinent medical records
including radiographs, microbiology, laboratory evaluations, and discussion with primary team, consultants, pharmacy, nutrition, physical therapy, case management, charge nurse, critical care nursing, and respiratory therapy.
Data:
CXR 09-22-2023:
Status post intubation. No pneumothorax.
Stable moderate bilateral pneumonia.
[2023-09-23 09:27] LABS: Glycohemoglobin (HgbA1c) 5.7 % (4.0-5.6)
--- NOTE | 2023-09-23 09:29 | CON.CAR ---
Consultation
Consultation Request
Date/Time Consultation Requested: 09/23/23 7:00AM
Date/Time Consultation Performed: 09/23/23 8:15AM
Requesting Provider: Dr. Little
Performing Provider: Dr Calderon
Reason for Consultation: CHF
Medical History
-
Chief Complaint: sob
History of Present Illness:
83-year-old female with past medical history of hypothyroidism, irritable bowel disease and hyperlipidemia presents to [facility] with respiratory distress and marked shortness of breath. According to the family the patient was stable
earlier this week but last night had marked shortness of breath which occurred somewhat suddenly. There was no clear complaints of chest pains or palpitations. She arrived to the emergency room with hypertensive emergency and marked respiratory
distress. She was placed on BiPAP but ultimately required intubation. She was then found to be COVID-positive. She has been having fevers in the intensive care unit. There is no past medical history of congestive heart failure. Recent echo 1
year ago had a preserved ejection fraction with only mild valve disease. She still has low-grade fevers was found to have a markedly elevated proBNP, pneumonia and congestive heart failure.
Past Medical History
Past Medical History: Hypercholesterolemia and Hypothyroidism
Past Surgical History: Orthopedic (Left hip replacement 1997 in 2009)
Social History
Tobacco: Former Smoker
Alcohol: None
Drug: None
Employment: Retired
Family History
Family History: Hypertension
Allergies / Home Medications
Allergy/AdvReac Type Severity Reaction Status Date / Time
No Known Allergies Allergy Verified 01/19/17 11:29
Medication Instructions Recorded Confirmed Type
atorvastatin 20 mg tablet 20 mg PO QPM High cholesterol 03/11/21 09/22/23 History
amlodipine 5 mg tablet (Norvasc) 5 mg PO DAILY #30 tabs 03/13/21 09/22/23 Rx
aripiprazole 2 mg tablet 2 mg PO HS 09/22/23 09/22/23 History
furosemide 20 mg tablet (Lasix) 20 mg PO DAILY 09/22/23 09/22/23 History
levothyroxine 137 mcg tablet 137 mcg PO DAILY 09/22/23 09/22/23 History
(Synthroid)
potassium chloride 10 mEq 10 meq PO DAILY 09/22/23 09/22/23 History
tablet,extended release
venlafaxine 150 mg 450 mg PO DAILY 09/22/23 09/22/23 History
capsule,extended release 24 hr
(Effexor XR)
Review of Systems
-
History Source: Family
Constitutional: No Symptoms
EENT: No Symptoms
Respiratory: Cough and Trouble Breathing
Cardiac: No Symptoms
Abdomen/GI: No Symptoms
: No Symptoms
Musculoskeletal: No Symptoms
Skin: No Symptoms
Neurological: No Symptoms
Endocrine: No Symptoms
Hematologic/Lymphatic: No Symptoms
Physical Exam
Vital Signs
Temp Pulse Resp BP Pulse Ox
100.1 F 106 16 123/74 93
09/23/23 08:51 09/23/23 08:51 09/23/23 08:51 09/23/23 08:45 09/23/23 08:51
Lab Results
09/23/23 05:11
09/23/23 05:11
Troponin I 0.585 ng/ml H* D 09/23/23 05:11
Wuh-S-Yflgrcwuxdx Pept 45486 pg/ml 09/22/23 21:20
Physical Exam
General: Intubated
HEENT: Normocephalic, Anicteric and Other (ET tube)
Respiratory: Crackles and Rhonchi
Cardiac: S1/S2, Regular Rhythm and Murmur (09/02 syst LSB)
GI: Soft, Non Tender and Non Distended
Genito-urinary: No Costovertebral Tender
Musculoskeletal: Edema (+1 edema)
Skin: Warm and Dry
Neuro: AO x 3
Psych: Calm
Impression / Plan
-
Assess:
Acute respiratory failure requiring intubation
COVID-pneumonia
Acute heart failure with preserved ejection fraction
Hypertensive emergency
Acute on chronic renal failure.
Hypothyroidism
Non-AL troponin elevation
echocardiogram February 2023, EF 55 to 60% with mild LVH, mild MR, mild aortic stenosis
Plan:
She presents with acute respiratory failure requiring intubation. I suspect this is a combination of pneumonia, COVID, and acute heart failure.
Check repeat echocardiogram. Wean off nitroglycerin and would start carvedilol 3.125 twice daily. May need to placement for medications
Continue Lasix 40 mg IV bid. Follow creatinine at 1.5
I suspect she is in congestive heart failure so we will try to avoid significant hydration with her infection
Continue remdesivir for COVID-pneumonia
Blood pressure is currently stable off pressors
Continue thyroid supplement.
I suspect her abnormal troponin is a non-AL troponin elevation from pneumonia and congestive heart failure.
Data Reviewed
-
EKG: Report Reviewed by me
Radiology: Report Reviewed by me
Labs: Labs Reviewed by me
Old Records: Reviewed
[2023-09-23] MEDS: ROCEPHIN 2000 MG IV (11:33)
[2023-09-23] MEDS: STERILE WATER FOR INJECTION 20 ML IV (11:33)
[2023-09-23] MEDS: ZITHROMAX INFUSION 250 IV (11:33)
--- NOTE | 2023-09-23 12:00 | PTCARENOTE ---
pt reassessed. AC 70%, peep 8, tolerating well. josé miguel placed, xray obtained.
[2023-09-23] MEDS: COREG 3.125 MG TUBE ×2 (12:48→20:41)
[2023-09-23 13:02] LABS: Troponin I 0.723 ng/ml
[2023-09-23 13:32] LABS: Urine Sodium 102 mmol/L (30-90)
[2023-09-23 13:39] LABS: Procalcitonin 50.35 ng/ml (0.0-0.25)
[2023-09-23 13:58] LABS: Glucose - Point of Care 115 mg/dl (70-99)
--- NOTE | 2023-09-23 16:00 | PTCARENOTE ---
assessment unchanged. pt tolerating ventilator well, AC fiO2 70%, peep 8, rate 16, tv 500. family at bedside, updated on plan of care. pt arouses to voice, follows commands.
[2023-09-23] MEDS: LOVENOX 40 MG SC (18:05)
[2023-09-23] MEDS: LIPITOR 20 MG TUBE (18:06)
[2023-09-23 18:20] LABS: Glucose - Point of Care 94 mg/dl (70-99)
--- NOTE | 2023-09-23 20:18 | PTCARENOTE ---
Patient lightly sedated, BRIDGER with fair ROM when prompted. Patient turned and repositioned, HOB elevated. Tolerating ventilator settings, tolerating mouth care.
[2023-09-23] MEDS: DECADRON 6 MG IV (22:52)
[2023-09-24] VITALS (52 sets, daily range): BP systolic 92–138; BP diastolic 47–83; BMI 38.7
[2023-09-24 00:06] LABS: Glucose - Point of Care 83 mg/dl (70-99)
[2023-09-24] MEDS: DIPRIVAN 100 IV ×4 (00:09→18:29)
[2023-09-24] MEDS: TYLENOL ORAL SOLUTION 650 MG PO (00:09)
--- NOTE | 2023-09-24 00:14 | PTCARENOTE ---
Patient with frequent PVC's then a 10 seconds run of SVT otherwise assessment unchanged. Patient remains asymptomatic.
--- NOTE | 2023-09-24 04:13 | PTCARENOTE ---
Patient tolerating ventilator settings, turned and repositioned. Assessment unchanged.
[2023-09-24 04:47] LABS: Venous Blood Gas B.E. 0.4 mmol/L (-4 to +4); Venous Blood Gas HCO3 22.6 mmol/L (22-27); Venous Blood Gas O2 Sat % 99.4 %; Venous Blood Gas pCO2 29 mmHg (35-48); Venous Blood Gas pO2 129 mmHg (30-50)
[2023-09-24 04:56] LABS: % Basophils 0.1 % (0-2); % Immature Granulocytes 0.7 % (0-0.5); % Lymphocytes 2.7 % (20.5-51.1); % Monocytes 2.3 % (1.7-9.3); % Neutrophils 94.2 % (42.2-75.2); Absolute Immature Granulocytes 0.1 10^3/uL (0-0.05); Absolute Lymphocytes 0.4 10^3/uL (1.2-3.4); Absolute Monocytes 0.4 10^3/uL (0.1-0.6); Absolute Neutrophils 14.9 10^3/uL (1.4-6.5); Hematocrit 37.4 % (37.0-47.0); Hemoglobin 12.6 g/dL (12.0-16.0); Mean Corp Hgb Conc. 33.7 g/dL (33.0-37.0); Mean Corpuscular Hgb 29.7 pg (27.0-31.0); Mean Corpuscular Volume 88.2 fL (81.0-99.0); Mean Platelet Volume 12.3 fL (7.4-10.4); Nucleated Red Blood Cells % 0 %; Platelet Count 161 10^3/uL (130-400); Red Blood Cell Count 4.24 10^6/uL (4.20-5.40); White Blood Cell Count 15.8 10^3/uL (4.8-10.8)
[2023-09-24 05:23] LABS: Blood Urea Nitrogen 50 mg/dl (7-17); Calcium 8.4 mg/dl (8.4-10.2); Carbon Dioxide 21 mmol/L (22-30); Chloride 107 mmol/L (98-107); Estimated Creatinine Clearance 27 ml/min; Glucose 111 mg/dl (70-99); Magnesium 2.1 mg/dl (1.6-2.3); Phosphorus 3.9 mg/dl (2.5-4.5); Potassium 3.8 mmol/L (3.5-5.1); Sodium 139 mmol/L (135-145)
[2023-09-24 05:26] LABS: Troponin I 0.411 ng/ml
[2023-09-24] MEDS: SYNTHROID 137 MCG TUBE (06:24)
[2023-09-24 06:38] LABS: Glucose - Point of Care 99 mg/dl (70-99)
[2023-09-24] MEDS: COREG 3.125 MG TUBE ×2 (07:26→19:50)
[2023-09-24] MEDS: NSS (PRESERVATIVE FREE) 10 ML IV (07:27)
[2023-09-24] MEDS: PROTONIX IV 40 MG IV (07:27)
[2023-09-24] MEDS: ZITHROMAX 252.5 MG IV (07:27)
[2023-09-24] MEDS: MIRALAX 17 GRAMS TUBE (07:28)
--- NOTE | 2023-09-24 08:00 | PTCARENOTE ---
received patient at change of shift. pt drowsy, arouses to voice, follows commands. generalized weakness throughout. propofol and fentanyl gtts infusing. pt intubated, 7.5 ETT 23 at center. AC 60%, rate 16, tv 500, peep 8, sat 93%. lung sounds
diminished/coarse anteriorly. scant secretions from ETT. mouth care completed. SR on telemetry heart rate 60-70s. pulses weakly palpable. +2 edema in lower extremities. Right nare dobhoff flushes easily. active bowel sounds. abdomen obese, round.
ziegler draining clear yellow urine. see worklist for full nursing assessment and interventions.
--- NOTE | 2023-09-24 08:01 | W.PN.HOSP.TC ---
Addendum entered and electronically signed by Natalie Ordoñez MD 09/24/23 08:49:
discussed with Dr. Rust, will broaden abx and start gentle fluids
Original Note:
Today's Communication/Plan
-
-see plan
Assessment / Plan
Assessment / Plan
A/P:� Patient is an 83y F with PMH significant for hypothyroidism and anxiety / depression who presents to ED in respiratory distress 2/2 covid-19 with superimposed pneumonia; initial concern for heart failure.
Acute Hypoxemic Respiratory Failure
VDRF
�- s/p intubation on arrival
- likely multifactorial 2/2 covid and superimposed bacterial pneumonia
- vent management per Pulmonary
- daily SAT
�- Treat individual issues as outlined below.
Acute COVID-19 Pneumonia
Superimposed bacterial pneumonia
�- COVID positive
�- Patient is vaccinated x multiple doses according to assisted living paperwork.
- IV Decadron/Remdesivir
- F/U sputum culture and blood cultures
- continue antibiotics
- appreciate pulm consult
Acute (? on chronic) HF - Unknown Type
Hypertensive Emergency
- concern raised for heart failure but creatinine rising with diuresis - lasix on hold for now
- was on nitro gtt on admit given SBP > 190
�- Update Echo (February 2023 with LVEF 55-60 and mild )
�- Cardiology evaluation appreciated
Lactic Acidosis
�- Suspect this is mediated on hypoxemia > hypovolemia given evidence of volume overload, etc.
�- Avoid IVFs.� Correct hypoxemia as noted above.
- improving overnight will avoid another blood stick today as won't change release manager
JUAN
- creatinine climbed to 1.9 this AM with diuresis
- lasix on hold for now
- consider fluids back
Hypothyroidism
- resume MEDICAL CLAIMS REPRESENTATIVE synthroid
Anxiety / Depression
- resume home meds post extubation; on hold with sedation
DVT Prophylaxis:� Lovenox
Code Status:� Per Dr. Little: Reviewed with son in detail.� Patient had previously been DNR on 2020 admission and son would like to honor those wishes.
Anticipated Discharge: > 48 hours
Subjective/Interval History
-
Date of Service: September 24, 2023
sedated on vent
Objective Data
-
Labs:
Laboratory Results
09/24/23
04:34
WBC 15.8 H
Hgb 12.6 D
Hct 37.4
Plt Count 161 D
Sodium 139
Potassium 3.8
Chloride 107
Carbon Dioxide 21 L
BUN 50 H
Creatinine 1.9 H
Glucose 111 H
Calcium 8.4
Vital Signs:
Vital Signs
Temp Pulse Resp BP Pulse Ox
99.1 F 88 16 113/50 93
09/24/23 07:52 09/24/23 07:26 09/24/23 05:20 09/24/23 07:26 09/24/23 05:20
I&O
09/23/23 09/24/23 09/25/23
06:59 06:59 06:59
Intake Total 330.2 / 343.0 252.9 / 271.4 18.5 / 18.5
Output Total 1050 / 1085 1525 / 1560 35 / 35
Balance -719.8 / -742.0 -1272.1 / -1288.6 -16.5 / -16.5
Review of Systems
-
History Source: Patient
All other systems: Reviewed and negative
Physical Exam
-
General: Intubated
HEENT: PERRLA
Respiratory: Negative Wheezes
Cardiac: Regular Rhythm and S1/S2
GI: Soft and Nontender
Musculoskeletal: No Edema
Skin: Warm and Dry; Negative Rash
Neuro: Sedated
Psych: Calm
Data Reviewed
-
Diagnostic Radiology: Report Reviewed by me
Labs: Labs Reviewed by me
--- NOTE | 2023-09-24 08:37 | W.PN.INTV ---
Today's Communication / Plan
Recommendations
Mechanical ventilation
Steroids
Hold Lasix for now -resume when creatinine recovers; aim for net neutral at least in the meantime
SAT/SBT when she clinically improves
Try to wean PEEP to a goal of 5 over the next 1-2 days
Family updated
Assessment
-
Assessment: 83-year-old female former tobacco smoker with a PMHx of hypothyroidism, depression and hypertension/hyperlipidemia who presents with difficulty breathing which worsened throughout the day. She was very short of breath and respiratory
distress and hypoxic which did not improve with BiPAP and she was intubated in the ER. Imaging showed bilateral pneumonia concerning for infection +/- pulmonary edema. BP was elevated requiring nitroglycerin drip. She was also diuresed.
Antibiotics were given in the ER as well as steroids and nebulized bronchodilators. She was transferred to the ICU for further care with groundskeeper/pulmonary services consulted for additional management/recommendations.
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
Impression:
#Acute hypoxemic respiratory failure with hypoxemia and hypercapnia due to bilateral pneumonia +/- acute pulmonary edema in setting of HTN crisis; DDx also includes ADHF
#Sepsis without shock due to bilateral pneumonia (suspect COVID-19 with bacterial superinfection)
#Hypertensive crisis briefly on nitro gtt --> BP now improved
#On mechanical ventilation
#COVID-19 pneumonia
#Acute kidney injury (baseline Cr approximately 1�1 0.2) - worsening
#Elevated troponin - likely due to demand ischemia with type II NH - troponin peaked at 0.723 on 09/23/2023
#Lactic acidosis
#Subclinical hyperthyroidism
Plan:
- Continue mechanical ventilation with daily SAT/SBT if clinically appropriate
- Titrate tidal volume, flow and PEEP to maintain plateau pressure <30, and optimize driving pressure to keep between 15�20
- Titrate FiO2 and PEEP to maintain SpO2 >90-94%
- Sedate with goal RASS -1 to -2
- Continue decadron and if O2 requirements worsen then I will step up to solumedrol 40mg IV q6hr
- Titrate FiO2 down to 50% and then would keep it there and then drop PEEP down to goal of 5
- Check TTE
- No need to continue trending troponin as it peaked at 0.723 yesterday afternoon
- Okay to maintain BP <140/90
- Hold diuresis for now given her uptrending Cr and worsening JUAN. Continue to trend UOP, sCr --> keep net negative/neutral as tolerated, and resume lasix when Cr improves for goal ~1L per day over next 24-72 hrs as BP & Cr tolerate; Cardiology on
board --> recs appreciated
- Maintain MAP >65
- Replete K>4, Mg>2, PO4>3
- Maintain euglycemia with goal BG 140�180
- DVT prophylaxis
Critical care statement: A total of 44 minutes of critical care time was provided for this patient today. This includes management of unstable vital signs, evaluation of the patient at bedside, reviewing the patient's pertinent medical records
including radiographs, microbiology, laboratory evaluations, and discussion with primary team, consultants, pharmacy, nutrition, physical therapy, case management, charge nurse, critical care nursing, and respiratory therapy.
Data:
CXR 09-24-2023: Previously noted parenchymal disease process, which could have represented pneumonia or pulmonary edema,has improved. Interval development and/or progression of small to moderate bilateral pleural effusions.
CXR 09-22-2023:
Status post intubation. No pneumothorax.
Stable moderate bilateral pneumonia.
Subjective Dataa
Subjective Data
Date of Service:
Date of Service: September 24, 2023
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
Subjective:
Patient seen evaluate this morning. Spiked fever overnight to 100.4 �F. Slight worsening of creatinine today. Gentle fluids started. Patient remains intubated/sedated on propofol and fentanyl. FiO2 50%, PEEP of 8 and she is saturating 94%. She
is following commands and is in no acute distress. Patient's daughter, Terra, at bedside. I answered all of her questions and also called the patient's son, Jorge, and answered all of his questions as well. Patient's BP currently 122/78 and there
is no need for vasopressors.
Review of Systems
General: Unobtainable - Sedation
Objective Data
Data Reviewed
Vital Signs / I&O / Oxygen:
Vital Signs
Temp Pulse Resp BP Pulse Ox
97.5 F 68 16 102/60 92
09/24/23 11:51 09/24/23 11:00 09/24/23 11:00 09/24/23 11:00 09/24/23 11:14
Intake and Output
09/23/23 09/24/23 09/25/23
06:59 06:59 06:59
Intake Total 330.2 / 343.0 252.9 / 271.4 74.0 / 74.0
Output Total 1050 / 1085 1525 / 1560 75 / 75
Balance -719.8 / -742.0 -1272.1 / -1288.6 -1.0 / -1.0
SaO2 [A/C] 92
SaO2 92
Physical Exam
General: Comfortable
HEENT: Normocephalic, Anicteric and Other (ETT in place)
Cardiovascular: S1-S2 and Peripheral Edema (Negative)
Respiratory: Wheeze (Negative), Crackles (Negative), Rhonchi (bilateral), ET Tube and Other (Mechanical breath sounds bilaterally)
GI: Soft, Non Distended and Non Tender
Neurology: Other (Sedated, easily arousable to voice and is following all commands; moves all extremities to command)
Skin: Warm and Dry
Labs/Micro/Reports
Lab Data
09/24/23 04:34
09/24/23 04:34
Microbiology
09/23/23 05:11 Nose MRSA Screen - Final
Staph aureus MRSA
09/22/23 21:20 Blood/Venous Blood Culture - Preliminary
No Growth in 24 hours- Final report to follow
09/22/23 21:20 Blood/Venous Blood Culture - Preliminary
No Growth in 24 hours- Final report to follow
09/23/23 12:50 Urine Legionella Urinary Antigen - Final
Negative for Legionella pneumophila Serogroup 1 antigen.
A negative result does not rule out the possiblity of
Legionella infection due to other serogroups or species of
Legionella. Clinical correlation is recommended.
09/23/23 12:50 Urine Streptococcus pneumoniae Antigen (M - Final
Negative for Streptococcus pneumoniae antigen.
A negative result does not exclude infection with
Streptococcus pneumoniae. Clinical correlation is
recommended.
09/22/23 22:14 Nasal Swab Respiratory Syncytial Virus Culture - Final
Negative for Respiratory Syncytial Virus.
A false negative result may be obtained with a specimen
collected early in the acute phase. If symptoms persist, a
new specimen should be tested.
09/22/23 21:44 Nasal Swab Influenza Types A & B (GISELLE) - Final
Negative for Influenza A & B, NAAT
Negative results must be combined with clinical observations
and patient history.
Nucleic Acid Amplification test (NAAT)performed on the
[employer] platform.
--- NOTE | 2023-09-24 08:56 | PHA.VAN.IN ---
Assessment
- Assessment
Renal Function: Appears elevated from baseline
Renal Function may be Overestimated due to: age
Concomitant Antimicrobials: azithromycin, cefepime
Plan
- Plan
Initial / Loading Dose: 1000mg 09/22 + 1500mg 09/24
Maintenance Regimen: prn by level
Monitoring: random 09/25 in am
Pharmacokinetics Vancomycin I
- -
Patient Age: 83
Patient Sex: Female
Vancomycin Day #: 1
Indication: Pulmonary/Respiratory
Requesting Provider: Tiago
Pertinent Antimicrobial Allergies:
nkda
Height / Weight:
Height 5 ft 4 in
Actual Weight 102.1 kg
IBW in k.7
- Vital Signs / Lab Results
Temp Pulse Resp BP Pulse Ox
99.1 F 88 16 113/50 94
09/24/23 07:52 09/24/23 07:26 09/24/23 05:20 09/24/23 07:26 09/24/23 08:30
Lab Results - Hematology
09/22/23 09/23/23 09/24/23
21:20 05:11 04:34
WBC 11.9 H 16.6 H 15.8 H
Lab Results - Chemistry
09/22/23 09/23/23 09/23/23
21:20 05:11 05:11
BUN 23 H Cancelled 33 H
Creatinine 1.3 H Cancelled
Estimated Creat Clear
Albumin 4.5
09/23/23 09/23/23 09/23/23
05:11 05:11 05:11
BUN
Creatinine 1.5 H
Estimated Creat Clear Cancelled 35
Albumin Cancelled 3.2 L
09/24/23
04:34
BUN 50 H
Creatinine 1.9 H
Estimated Creat Clear 27
Albumin
09/22/23 09/23/23
21:20 01:13
Lactic Acid 4.9 H* 2.2 H
Microbiology Results
09/22/23 21:20 Blood Culture - Preliminary
Blood/Venous No Growth in 24 hours- Final report to follow
09/22/23 21:20 Blood Culture - Preliminary
Blood/Venous No Growth in 24 hours- Final report to follow
09/23/23 12:50 Legionella Urinary Antigen - Final
Urine Negative for Legionella pneumophila Serogroup 1 antigen.
A negative result does not rule out the possiblity of
Legionella infection due to other serogroups or species of
Legionella. Clinical correlation is recommended.
Streptococcus pneumoniae Antigen (M - Final
Negative for Streptococcus pneumoniae antigen.
A negative result does not exclude infection with
Streptococcus pneumoniae. Clinical correlation is
recommended.
09/22/23 22:14 Respiratory Syncytial Virus Culture - Final
Nasal Swab Negative for Respiratory Syncytial Virus.
A false negative result may be obtained with a specimen
collected early in the acute phase. If symptoms persist, a
new specimen should be tested.
09/22/23 21:44 Influenza Types A & B (GISELLE) - Final
Nasal Swab Negative for Influenza A & B, NAAT
Negative results must be combined with clinical observations
and patient history.
Nucleic Acid Amplification test (NAAT)performed on the
[employer] platform.
[2023-09-24] MEDS: NSS 1000 IV (10:10)
[2023-09-24] MEDS: VANCOCIN 300 ML IV (10:10)
[2023-09-24] MEDS: VANCOCIN 300 MG IV (10:10)
[2023-09-24] MEDS: STERILE WATER FOR INJECTION 10 ML IV (10:10)
[2023-09-24] MEDS: MAXIPIME 2000 MG IV (10:11)
[2023-09-24] MEDS: VEKLURY 250 MG IV (11:36)
[2023-09-24 11:44] LABS: Glucose - Point of Care 98 mg/dl (70-99)
--- NOTE | 2023-09-24 12:00 | PTCARENOTE ---
assessment unchanged. pt tolerating ventilator, FiO2 now 50%. sat 93-95%
[2023-09-24] MEDS: NSS 30 IV (12:43)
--- NOTE | 2023-09-24 13:59 | W.PN.CARDCBS ---
Today's Communication / Plan
-
Diuretics on hold with worsening renal insufficiency and hypotension
Currently getting IV fluids
Hold Lasix for now
Continue treatment for pneumonia and COVID
Eventual echocardiogram when out of isolation
Impression / Plan
-
Assess:
Acute respiratory failure requiring intubation
COVID-pneumonia
Acute heart failure with preserved ejection fraction
Hypotension requiring pressors�resolved
Acute on chronic renal failure.
Hypothyroidism
Non-ME troponin elevation
echocardiogram February 2023, EF 55 to 60% with mild LVH, mild MR, mild aortic stenosis
Plan:
She was felt to have a component of CHF
However creatinine worsened and became hypotensive and Lasix is now on hold
Is getting IV fluid
Check repeat echocardiogram when out of isolation.
Carvedilol on hold with hypotension
Continue treatment of presumed bacterial pneumonia
Continue remdesivir for COVID-pneumonia
Progress Note - Galley Cook
Subjective
Date of Service: September 24, 2023
Sedate on the ventilator
Objective
Labs:
09/24/23 04:34
09/24/23 04:34
Labs
Hgb 12.6 g/dL (12.0-16.0) D 09/24/23 04:34
Hct 37.4 % (37.0-47.0) 09/24/23 04:34
Plt Count 161 10^3/uL (130-400) D 09/24/23 04:34
PT 13.4 Sec (11.4-14.6) 09/22/23 22:10
INR 1.00 09/22/23 22:10
APTT 23.6 Sec (23.4-35.0) 09/22/23 22:10
Sodium 139 mmol/L (135-145) 09/24/23 04:34
Potassium 3.8 mmol/L (3.5-5.1) 09/24/23 04:34
BUN 50 mg/dl (7-17) H 09/24/23 04:34
Creatinine 1.9 mg/dL (0.6-1.0) H 09/24/23 04:34
Glucose 111 mg/dl (70-99) H 09/24/23 04:34
Troponins
09/22/23 09/23/23 09/23/23
21:20 01:13 05:11
Troponin I 0.031 0.231 H* D 0.585 H* D
09/23/23 09/24/23
12:07 04:34
Troponin I 0.723 H* 0.411 H*
Vital Signs and I&O:
Vital Signs
Temp Pulse Resp BP Pulse Ox
97.5 F 66 16 117/73 94
09/24/23 11:51 09/24/23 13:00 09/24/23 13:00 09/24/23 13:00 09/24/23 13:00
Vital Signs
Temp Pulse Resp BP Pulse Ox
97.5 F 66 16 117/73 94
09/24/23 11:51 09/24/23 13:00 09/24/23 13:00 09/24/23 13:00 09/24/23 13:00
Intake & Output
09/22/23 09/23/23 09/24/23 09/25/23
06:59 06:59 06:59 06:59
Intake Total 330.2 / 343.0 252.9 / 271.4 699.5 / 699.5
Output Total 1050 / 1085 1525 / 1560 225 / 225
Balance -719.8 / -742.0 -1272.1 / -1288.6 474.5 / 474.5
Physical Exam
Physical Exam
General: Sedate on the ventilator
Neck: Supple, no JVD, HJR, carotids +2 B/L, no bruits bilaterally.
Heart: Non displaced PMI, RRR, no murmurs, No S3, S4, no rubs.
Lungs: Scattered rhonchi
Extremities: No clubbing, cyanosis or edema bilaterally.
Neuro: Sedate
[2023-09-24] MEDS: LOVENOX 40 MG SC (17:16)
[2023-09-24] MEDS: LIPITOR 20 MG TUBE (17:17)
[2023-09-24 17:29] LABS: Glucose - Point of Care 98 mg/dl (70-99)
--- NOTE | 2023-09-24 19:52 | PTCARENOTE ---
Patient tolerating ventilator settings, wakes to verbal and tactile stimulus. Follows commands and denies pain. Patient repositioned and restraints resecured.
[2023-09-24] MEDS: DECADRON 6 MG IV (22:41)
[2023-09-25] VITALS (29 sets, daily range): BP systolic 67–178; BP diastolic 41–125; BMI 39.0
--- NOTE | 2023-09-25 00:19 | PTCARENOTE ---
Patient SPO2 94% on new ventilator settings with PEEP of 5. Patient wakes with verbal stimuli and continues to follow direction.
[2023-09-25] MEDS: DIPRIVAN 100 IV ×3 (00:23→17:10)
[2023-09-25 00:34] LABS: Glucose - Point of Care 84 mg/dl (70-99)
[2023-09-25] MEDS: SUBLIMAZE 100 IV ×2 (02:00→17:10)
[2023-09-25] MEDS: NSS 1000 IV (02:02)
[2023-09-25 05:18] LABS: Venous Blood Gas B.E. -3.8 mmol/L (-4 to +4); Venous Blood Gas HCO3 18.8 mmol/L (22-27); Venous Blood Gas O2 Sat % 99.6 %; Venous Blood Gas pCO2 27 mmHg (35-48); Venous Blood Gas pH 7.45 (7.32-7.43); Venous Blood Gas pO2 208 mmHg (30-50)
[2023-09-25 05:31] LABS: % Basophils 0.1 % (0-2); % Immature Granulocytes 0.5 % (0-0.5); % Lymphocytes 3.5 % (20.5-51.1); % Monocytes 1.7 % (1.7-9.3); % Neutrophils 94.2 % (42.2-75.2); Absolute Immature Granulocytes 0.1 10^3/uL (0-0.05); Absolute Lymphocytes 0.5 10^3/uL (1.2-3.4); Absolute Monocytes 0.2 10^3/uL (0.1-0.6); Absolute Neutrophils 12.3 10^3/uL (1.4-6.5); Hematocrit 37.7 % (37.0-47.0); Hemoglobin 12.5 g/dL (12.0-16.0); Mean Corp Hgb Conc. 33.2 g/dL (33.0-37.0); Mean Corpuscular Hgb 29.9 pg (27.0-31.0); Mean Corpuscular Volume 90.2 fL (81.0-99.0); Nucleated Red Blood Cells % 0 %; Platelet Count 164 10^3/uL (130-400); Red Blood Cell Count 4.18 10^6/uL (4.20-5.40); Red Cell Dist. Width 15.2 % (11.5-14.5)
--- NOTE | 2023-09-25 05:36 | PTCARENOTE ---
Provider notified of VBG results, RT notified of new ventilator settings. SPO2 remains >90 on new settings.
[2023-09-25] MEDS: SYNTHROID 137 MCG TUBE (05:51)
[2023-09-25 05:57] LABS: Blood Urea Nitrogen 54 mg/dl (7-17); Calcium 8.2 mg/dl (8.4-10.2); Carbon Dioxide 16 mmol/L (22-30); Chloride 109 mmol/L (98-107); Estimated Creatinine Clearance 34 ml/min; Glucose 105 mg/dl (70-99); Magnesium 2.1 mg/dl (1.6-2.3); Potassium 3.9 mmol/L (3.5-5.1); Sodium 139 mmol/L (135-145); eGFR 34.79
[2023-09-25 06:00] LABS: Vancomycin Random 15.1 ug/ml
--- NOTE | 2023-09-25 07:37 | W.PN.INTV ---
Today's Communication / Plan
Recommendations
MV
Sedation
Dexam/remd
Atbs
Diuretic
Nutrition
DVT/GI proph
Assessment
-
Assessment: 83-year-old female former tobacco smoker with a PMHx of hypothyroidism, depression and hypertension/hyperlipidemia who presents with difficulty breathing which worsened throughout the day. She was very short of breath and respiratory
distress and hypoxic which did not improve with BiPAP and she was intubated in the ER. Imaging showed bilateral pneumonia concerning for infection +/- pulmonary edema. BP was elevated requiring nitroglycerin drip. She was also diuresed.
Antibiotics were given in the ER as well as steroids and nebulized bronchodilators. She was transferred to the ICU for further care with environmental lawyer/pulmonary services consulted for additional management/recommendations.
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
Impression:
#Acute hypoxemic respiratory failure with hypoxemia and hypercapnia due to bilateral pneumonia +/- acute pulmonary edema in setting of HTN crisis; DDx also includes ADHF
#Sepsis without shock due to bilateral pneumonia (suspect COVID-19 with bacterial superinfection)
#Hypertensive crisis briefly on nitro gtt --> BP now improved
#On mechanical ventilation
#COVID-19 pneumonia
#Acute kidney injury (baseline Cr approximately 1�1 0.2) - worsening
#Elevated troponin - likely due to demand ischemia with type II IN - troponin peaked at 0.723 on 09/23/2023
#Lactic acidosis
#Subclinical hypothyroidism
Plan:
- Continue mechanical ventilation with daily SAT/SBT if clinically appropriate
Current settings: ACV 16-500-5-0.4 (POx 94%)
- Titrate tidal volume, flow and PEEP to maintain plateau pressure <30, and optimize driving pressure to keep between 15�20
- Titrate FiO2 and PEEP to maintain SpO2 >90-94%
- Sedate with goal RASS -1 to -2
Propofol/fentanyl gtt
Follow CXR 09-24 showed significant improvement bilateral pulm edema, suspected R basilar infiltrate and new small R>L pleural effusions
Continue decadron and remdesivir for treatment of COVID pneumonia
On empiric atbs cefepime/vancomycin/(azithromycin)
Elevated QTc, d/c azithro 09-25
Trach secs: few GNB, follow final results
MRSA screening positive
Blood cxs so far negative from 09-22
Flu, RSV, Leg/strep UAg negative
- TTE pending
- No need to continue trending troponin as it peaked at 0.723 yesterday afternoon
On outpatient furosemide 20 mg qd
I/O 1L positive in last 24 hrs
Dose furosemide 20 mg IV x1 on 09-25
- Okay to maintain BP <140/90
Continue to trend UOP, sCr --> keep net negative/neutral as tolerated
Hypothyroidism: continue L-thyroxine
Cardiology following-> recs appreciated
Enteral feedings to start 09-25
H/o anxiety, continue venlafaxine
- Maintain MAP >65
- Replete K>4, Mg>2, PO4>3
- Maintain euglycemia with goal BG 140�180
- DVT prophylaxis: enoxaparin, transitioned to sc hep 09-25
GI proph: IV PPI
DNR code status
Prognosis guarded
D/w MDT
Critical care time: 35 min
Data:
CXR 09-24-2023: Previously noted parenchymal disease process, which could have represented pneumonia or pulmonary edema,has improved. Interval development and/or progression of small to moderate bilateral pleural effusions.
CXR 09-22-2023:
Status post intubation. No pneumothorax.
Stable moderate bilateral pneumonia.
Subjective Dataa
Subjective Data
Date of Service:
Date of Service: September 25, 2023
Chief Complaint: Patient Care Director Follow Up
Subjective:
Continues on MV and sedation
Attempted sedation holiday this AM, agitated, desaturated
Review of Systems
General: Unobtainable - Sedation
Objective Data
Data Reviewed
Vital Signs / I&O / Oxygen:
Vital Signs
Temp Pulse Resp BP Pulse Ox
99 F 87 16 151/93 93
09/25/23 05:00 09/25/23 06:00 09/25/23 06:00 09/25/23 06:00 09/25/23 07:20
Intake and Output
09/24/23 09/25/23 09/26/23
06:59 06:59 06:59
Intake Total 252.9 / 271.4 2254.0 / 2254.0
Output Total 1525 / 1560 1120 / 1120
Balance -1272.1 / -1288.6 1134.0 / 1134.0
SaO2 [A/C] 96
SaO2 93
Physical Exam
General: Comfortable
HEENT: Normocephalic, Anicteric, Moist Mucous Membranes, Other (ETT in place) and Other (DHT)
Cardiovascular: S1-S2, Regular Rhythm and Peripheral Edema (mild)
Respiratory: Wheeze (Negative), Crackles (Negative), Rhonchi (bilateral), Stridor, ET Tube and Other (Mechanical breath sounds bilaterally)
GI: Soft, Non Distended and Non Tender
Neurology: Other (Sedated)
Skin: Warm and Dry
Labs/Micro/Reports
Lab Data
09/25/23 04:32
09/25/23 04:32
Microbiology
09/22/23 21:20 Blood/Venous Blood Culture - Preliminary
No Growth in 48 hours- Final report to follow
09/22/23 21:20 Blood/Venous Blood Culture - Preliminary
No Growth in 48 hours- Final report to follow
09/23/23 16:01 Endotracheal Gram Stain - Preliminary
09/23/23 05:11 Nose MRSA Screen - Final
Staph aureus MRSA
09/23/23 12:50 Urine Legionella Urinary Antigen - Final
Negative for Legionella pneumophila Serogroup 1 antigen.
A negative result does not rule out the possiblity of
Legionella infection due to other serogroups or species of
Legionella. Clinical correlation is recommended.
09/23/23 12:50 Urine Streptococcus pneumoniae Antigen (M - Final
Negative for Streptococcus pneumoniae antigen.
A negative result does not exclude infection with
Streptococcus pneumoniae. Clinical correlation is
recommended.
09/22/23 22:14 Nasal Swab Respiratory Syncytial Virus Culture - Final
Negative for Respiratory Syncytial Virus.
A false negative result may be obtained with a specimen
collected early in the acute phase. If symptoms persist, a
new specimen should be tested.
09/22/23 21:44 Nasal Swab Influenza Types A & B (GISELLE) - Final
Negative for Influenza A & B, NAAT
Negative results must be combined with clinical observations
and patient history.
Nucleic Acid Amplification test (NAAT)performed on the
[employer] platform.
--- NOTE | 2023-09-25 08:30 | PTCARENOTE ---
Received pt. @ change of shift. Pt. intubated/sedated in b/l soft limb restraints w 4 rails. Opens eyes spontaneously, tracks, able to follow simple commands. SR w prolonged QT/QTc on monitor. +2 hand/pedal edema; +1 anasarca. SpO2 96% on vent
settings AC16/500/.40/+5. Auscultated dim/coarse breath sounds throughout. Suctioned for lg amt of thick/duarte secretions. Oral hygiene provided per protocol. +BS. R nare dobhoff in place, clamped and used for meds; [address]
draining clear/yellow urine. Repositioned q2h. #18 L AC leaking, d/c'd. #20 L FA w prop and fent gtts. #22 L hand w IVF infusing. Pt. informed on continuous plan of care. Safe environment maintained.
[2023-09-25] MEDS: COREG 3.125 MG TUBE ×2 (08:41→20:17)
[2023-09-25] MEDS: NSS (PRESERVATIVE FREE) 10 ML IV (08:41)
[2023-09-25] MEDS: ZITHROMAX 252.5 MG IV (08:41)
[2023-09-25] MEDS: PROTONIX IV 40 MG IV (08:41)
[2023-09-25] MEDS: MIRALAX 17 GRAMS TUBE (08:41)
--- NOTE | 2023-09-25 09:00 | PHA.VAN.FU ---
Vancomycin Assessment / Plan
- Assessment
Renal Function: SCR Decreasing
WBC's are: Trending Down
In the past 24 hrs, patient has been: Afebrile
Concomitant Antimicrobials: cefepime, azithromycin, remdesivir
- Assessment - Therapeutic Drug Monitoring
Random Level: 15.1 - drawn ~18.5H after previous dose of 1500mg
- Dosing Plan
Dosing by Level: Re-dose today (Vanc 1000mg)
- Monitoring Plan
Random Level: 09/26 06
- Follow Up
Pharmacy will continue to follow.
Vancomycin Follow UP
- -
Patient Age: 83
Patient Sex: Female
Vancomycin Day #: 2
Indication: Pulmonary/Respiratory
Requesting Provider: Tiago
Pertinent Antimicrobial Allergies:
NKDA
Height / Weight:
Height 5 ft 4 in
Actual Weight 102.9 kg
IBW in k.7
Pertinent Past Medical History: BMI ~39
- Vital Signs / Lab Results
Temp Pulse Resp BP Pulse Ox
97.4 F 68 16 141/80 96
09/25/23 08:00 09/25/23 08:41 09/25/23 06:00 09/25/23 08:41 09/25/23 08:00
Lab Results - Hematology
09/22/23 09/23/23 09/24/23
21:20 05:11 04:34
WBC 11.9 H 16.6 H 15.8 H
09/25/23
04:32
WBC 13.0 H
Lab Results - Chemistry
09/22/23 09/23/23 09/23/23
21:20 05:11 05:11
BUN 23 H Cancelled 33 H
Creatinine 1.3 H Cancelled
Estimated Creat Clear
Albumin 4.5
09/23/23 09/23/23 09/23/23
05:11 05:11 05:11
BUN
Creatinine 1.5 H
Estimated Creat Clear Cancelled 35
Albumin Cancelled 3.2 L
09/24/23 09/25/23
04:34 04:32
BUN 50 H 54 H
Creatinine 1.9 H 1.5 H
Estimated Creat Clear 27 34
Albumin
09/22/23 09/23/23
21:20 01:13
Lactic Acid 4.9 H* 2.2 H
Microbiology Results
09/23/23 16:01 Respiratory Culture - Preliminary
Endotracheal Gram negative bacilli
Gram Stain - Preliminary
09/22/23 21:20 Blood Culture - Preliminary
Blood/Venous No Growth in 48 hours- Final report to follow
09/22/23 21:20 Blood Culture - Preliminary
Blood/Venous No Growth in 48 hours- Final report to follow
09/23/23 05:11 MRSA Screen - Final
Nose Staph aureus MRSA
09/23/23 12:50 Legionella Urinary Antigen - Final
Urine Negative for Legionella pneumophila Serogroup 1 antigen.
A negative result does not rule out the possiblity of
Legionella infection due to other serogroups or species of
Legionella. Clinical correlation is recommended.
Streptococcus pneumoniae Antigen (M - Final
Negative for Streptococcus pneumoniae antigen.
A negative result does not exclude infection with
Streptococcus pneumoniae. Clinical correlation is
recommended.
Therapeutic Drug Monitoring
Random Vancomycin 15.1 ug/ml 09/25/23 04:32
--- NOTE | 2023-09-25 09:14 | W.PN.HOSP.TC ---
Today's Communication/Plan
-
Continue antibiotics
Continue steroids
Continue Remdesivir
Please see below, as well as cardiology and sider mechanic notes from today
Assessment / Plan
Assessment / Plan
Physical Exam
General: Intubated
HEENT: PERRLA
Respiratory: Negative Wheezes
Cardiac: Regular Rhythm and S1/S2
GI: Soft and Nontender
Musculoskeletal: No Edema
Skin: Warm and Dry; Negative Rash
Neuro: Sedated
Psych: Calm

A/P:� Patient is an 83y F with PMH significant for hypothyroidism and anxiety / depression who presented to the ED in respiratory distress 2/2 covid-19 with superimposed pneumonia; initial concern for heart failure.
Acute Hypoxemic Respiratory Failure
VDRF
�- s/p intubation on arrival
- likely multifactorial 2/2 covid and superimposed bacterial pneumonia
- vent management per Pulmonary
- daily SAT
�- Treat individual issues as outlined below.
Acute COVID-19 Pneumonia
Superimposed bacterial pneumonia
�- COVID positive
�- Patient is vaccinated x multiple doses according to assisted living paperwork.
- IV Decadron/Remdesivir
- F/U sputum culture and blood cultures
- continue antibiotics
- appreciate pulmonary consult
Acute (? on chronic) HF - Unknown Type
Hypertensive Emergency
- concern raised for heart failure but creatinine rising with diuresis - lasix on hold for now
- was on nitro gtt on admit given SBP > 190
�- Update Echo (February 2023 with LVEF 55-60 and mild )
�- Cardiology evaluation appreciated: IV Fluids as per primary service but would watch volume status closely and check echocardiogram once out of isolation or if clinical change
Lactic Acidosis
�- Suspect this is mediated on hypoxemia > hypovolemia given evidence of volume overload, etc.
�- Avoid IVFs.� Correct hypoxemia as noted above.
- improving overnight will avoid another blood stick today as won't size changer
JUAN
- creatinine climbed to 1.9 on 09/24/23 with diuresis
- lasix on hold for now
- consider fluids back
Hypothyroidism
- resume PATIENT SVCS MGR synthroid
Anxiety / Depression
- resume home meds post extubation; on hold with sedation
DVT Prophylaxis:� Lovenox
Code Status:� Per Dr. Little: Reviewed with son in detail.� Patient had previously been DNR on 2020 admission and son would like to honor those wishes.
Family Discussions
I spoke to patient's family, in the presence of patient's nurse, outside of patient's room on 09/25/23. All questions and concerns were answered to satisfaction.
Ventilator dependent respiratory failure requiring intubation and monitoring in the ICU is a high-risk encounter.
Anticipated Discharge: > 48 hours
Subjective/Interval History
-
Date of Service: September 25, 2023
Patient was seen and examined. She remained intubated and on sedative medications, per patient's nurse she was not able to pass her weaning trial this morning.
Objective Data
-
Labs:
Laboratory Results
09/25/23
04:32
WBC 13.0 H
Hgb 12.5
Hct 37.7
Plt Count 164
Sodium 139
Potassium 3.9
Chloride 109 H
Carbon Dioxide 16 L
BUN 54 H
Creatinine 1.5 H
Glucose 105 H
Calcium 8.2 L
Vital Signs:
Vital Signs
Temp Pulse Resp BP Pulse Ox
97.4 F 68 16 141/80 96
09/25/23 08:00 09/25/23 08:41 09/25/23 06:00 09/25/23 08:41 09/25/23 08:00
I&O
09/24/23 09/25/23 09/26/23
06:59 06:59 06:59
Intake Total 252.9 / 271.4 2254.0 / 2342.5 497.0 / 497.0
Output Total 1525 / 1560 1120 / 1195 150 / 150
Balance -1272.1 / -1288.6 1134.0 / 1147.5 347.0 / 347.0
[2023-09-25] MEDS: STERILE WATER FOR INJECTION 10 ML IV ×2 (09:34→17:10)
[2023-09-25] MEDS: MAXIPIME 2000 MG IV (09:34)
--- NOTE | 2023-09-25 09:44 | W.PN.CARDCBS ---
Today's Communication / Plan
-
Lasix now on hold as cr was rising to 1.9 on 09/24. Cr now back to 1.5. Pt with hx of chronic renal failure.
She was felt to have a component of CHF and had received lasix but cr worsened and she became hypotensive and lasix held.
Wt up 1 lb over last 24 hrs.
IVF as per primary service but would watch volume status closely.
Check echo once out of isolation or if clinical change.
Coreg was held with hypotension and has bee resumed
Pt undergoing Vent wean eval.
Cont tx of bacterial PNA and COVID PNA. Pt receiving Remdesivir.
Impression / Plan
-
Impression:
Acute respiratory failure requiring intubation
COVID-pneumonia
Possible acute heart failure with preserved ejection fraction
Hypotension requiring pressors�resolved
Acute on chronic renal failure.
Hypothyroidism
Non-NM troponin elevation
Echo February 2023, EF 55 to 60% with mild LVH, mild MR, mild aortic stenosis
Plan:
Lasix now on hold as cr was rising to 1.9 on 09/24. Cr now back to 1.5. Pt with hx of chronic renal failure.
She was felt to have a component of CHF and had received lasix but cr worsened and she became hypotensive and lasix held.
Wt up 1 lb over last 24 hrs.
IVF as per primary service but would watch volume status closely.
Check echo once out of isolation or if clinical change.
Coreg was held with hypotension and has bee resumed
Pt undergoing Vent wean eval.
Cont tx of bacterial PNA and COVID PNA. Pt receiving Remdesivir.
Discussed with nursing.
CCT: 32 min.
Progress Note - Associate Engineer
Subjective
Date of Service: September 25, 2023
Pt seen and examined. sedated on vent.
Objective
Labs:
09/25/23 04:32
09/25/23 04:32
Labs
Hgb 12.5 g/dL (12.0-16.0) 09/25/23 04:32
Hct 37.7 % (37.0-47.0) 09/25/23 04:32
Plt Count 164 10^3/uL (130-400) 09/25/23 04:32
PT 13.4 Sec (11.4-14.6) 09/22/23 22:10
INR 1.00 09/22/23 22:10
APTT 23.6 Sec (23.4-35.0) 09/22/23 22:10
Sodium 139 mmol/L (135-145) 09/25/23 04:32
Potassium 3.9 mmol/L (3.5-5.1) 09/25/23 04:32
BUN 54 mg/dl (7-17) H 09/25/23 04:32
Creatinine 1.5 mg/dL (0.6-1.0) H 09/25/23 04:32
Glucose 105 mg/dl (70-99) H 09/25/23 04:32
Troponins
09/22/23 09/23/23 09/23/23
21:20 01:13 05:11
Troponin I 0.031 0.231 H* D 0.585 H* D
09/23/23 09/24/23
12:07 04:34
Troponin I 0.723 H* 0.411 H*
Vital Signs and I&O:
Vital Signs
Temp Pulse Resp BP Pulse Ox
97.4 F 68 16 141/80 99
09/25/23 08:00 09/25/23 08:41 09/25/23 06:00 09/25/23 08:41 09/25/23 09:22
Vital Signs
Temp Pulse Resp BP Pulse Ox
97.4 F 68 16 141/80 99
09/25/23 08:00 09/25/23 08:41 09/25/23 06:00 09/25/23 08:41 09/25/23 09:22
Intake & Output
09/23/23 09/24/23 09/25/23 09/26/23
06:59 06:59 06:59 06:59
Intake Total 330.2 / 343.0 252.9 / 271.4 2254.0 / 2342.5 497.0 / 497.0
Output Total 1050 / 1085 1525 / 1560 1120 / 1195 150 / 150
Balance -719.8 / -742.0 -1272.1 / -1288.6 1134.0 / 1147.5 347.0 / 347.0
Physical Exam
Physical Exam
General: sedated on vent.
Neck: Negative JVD
Heart: Regular, Negative S3 positive S1/S2, Negative S4, No murmur
Lungs:Negative wheezes/rales/rhonchi
Abd: Overweight. Positive BS, NT/ND, neg rebound/rigidity/guarding
Ext: Negative cyanosis/clubbing/edema
Neuro: nonfocal
[2023-09-25] MEDS: ATIVAN 1 MG IV (09:53)
[2023-09-25] MEDS: TYLENOL ORAL SOLUTION 650 MG PO ×2 (09:54→22:16)
[2023-09-25] MEDS: NSS (PRESERVATIVE FREE) 0.5 ML IV (09:54)
[2023-09-25] MEDS: SUBLIMAZE 50 MCG IV ×3 (11:13→18:11)
[2023-09-25] MEDS: VANCOCIN 200 IV (11:26)
[2023-09-25] MEDS: NOVOLOG FLEXPEN-LOW RESISTANCE SC ×2 (11:35→17:52)
[2023-09-25 11:39] LABS: Glucose - Point of Care 119 mg/dl (70-99)
--- NOTE | 2023-09-25 12:00 | PTCARENOTE ---
Prop and fent gtts off @ 0900 for spontaneous awakening trial. Pt. more awake/alert; remains able to follow simple commands. RT made aware of mentation/sedation off; CPAP wean initiated by RT @ 0922 to CPAP 5/5.40. Pt. unable to tolerate wean.
Tachycardic w HR into 140's. RR into hgh 30's. SPo2 dropped to 79%. Agitated/restless; attempted to sit up/pull @ tube. Admin prn pain/anxiety med- see MAR. RT notified and pt placed back on original AC settings of 16/500/.40/+5 @ 1000. FiO2
titrated up to 100% to maintained SpO2. Fent gtt reinitiated- titrated per orders, bolus doses admin- see OCT/flow sheet. Pt. repositioned. Family @ bedside updated on plan of care.
[2023-09-25] MEDS: LASIX 20 MG IV (12:19)
[2023-09-25] MEDS: NSS 30 IV (12:19)
[2023-09-25] MEDS: VEKLURY 250 MG IV (12:19)
--- NOTE | 2023-09-25 16:08 | CM ---
Patient from [facility] independent living.
Per Leatha at [facility] no services.
Attempted to contact son.
Patient currently vented.
Plan: TBD once medically stable.
--- NOTE | 2023-09-25 16:27 | PTCARENOTE ---
14 beat run svt, self resolved. Objectively asymptomatic, unable to assess subjective symptoms d/t intubation/sedation. Dr. Cook made aware and info forwarded to cards. No further orders.
[2023-09-25] MEDS: EFFEXOR 75 MG TUBE ×2 (17:08→22:16)
[2023-09-25] MEDS: MAXIPIME 1000 MG IV (17:09)
[2023-09-25] MEDS: LIPITOR 20 MG TUBE (17:09)
[2023-09-25] MEDS: HEPARIN 5000 UNITS SC (17:09)
[2023-09-25 18:02] LABS: Glucose - Point of Care 97 mg/dl (70-99)
[2023-09-25] MEDS: DECADRON 6 MG IV (22:17)
[2023-09-26] VITALS (43 sets, daily range): BP systolic 84–179; BP diastolic 52–130; BMI 38.3
[2023-09-26] MEDS: NOVOLOG FLEXPEN-LOW RESISTANCE SC ×5 (00:07→23:39)
[2023-09-26 00:17] LABS: Glucose - Point of Care 125 mg/dl (70-99)
[2023-09-26] MEDS: HEPARIN 5000 UNITS SC ×3 (00:17→16:11)
[2023-09-26 01:57] LABS: Hematocrit 38.9 % (37.0-47.0); Hemoglobin 13.1 g/dL (12.0-16.0); Mean Corp Hgb Conc. 33.7 g/dL (33.0-37.0); Mean Corpuscular Hgb 29.8 pg (27.0-31.0); Mean Corpuscular Volume 88.6 fL (81.0-99.0); Mean Platelet Volume 12.3 fL (7.4-10.4); Platelet Count 193 10^3/uL (130-400); Red Blood Cell Count 4.39 10^6/uL (4.20-5.40); Red Cell Dist. Width 15.3 % (11.5-14.5); White Blood Cell Count 12.7 10^3/uL (4.8-10.8)
[2023-09-26 02:12] LABS: Blood Urea Nitrogen 55 mg/dl (7-17); Carbon Dioxide 21 mmol/L (22-30); Chloride 108 mmol/L (98-107); Estimated Creatinine Clearance 37 ml/min; Glucose 139 mg/dl (70-99); Potassium 3.6 mmol/L (3.5-5.1); Sodium 138 mmol/L (135-145); Triglycerides 304 mg/dl (10-149)
[2023-09-26 02:23] LABS: Vancomycin Random 18.7 ug/ml
[2023-09-26] MEDS: DIPRIVAN 100 IV ×2 (02:25→21:27)
[2023-09-26] MEDS: MAXIPIME 1000 MG IV ×3 (02:26→18:00)
[2023-09-26] MEDS: STERILE WATER FOR INJECTION 10 ML IV ×3 (02:26→18:00)
[2023-09-26] MEDS: KCL 260 MEQ IV (04:18)
[2023-09-26 05:27] LABS: Glucose - Point of Care 133 mg/dl (70-99)
--- NOTE | 2023-09-26 06:03 | PTCARENOTE ---
Addendum entered by Landy Cervantes RN 09/26/23 06:09:
patient vent settings changed from 5 of peep to 8 and 60% Fi02 to 75% tube lin changed at 0500
Original Note:
09/25/23 - received pt from yari ORTI[facility], assessments completed and charted. patient has eyes open, with upward gaze, will look at me when asked, patient will follow commands. patient remains restrained for safety. ziegler patent for yellow urine, TF
at 20 and will increase at 8pm to 30ml
2300 - patient having htn and elevated hr, along with fever of 100.4 - increased sedation and gave tylenol.
09/26 - patient very sensitive to propofol increase, became hypotensive. adjusted propofol per parameters to maintain comfort and blood pressure.
frequent suctioning needed for copious secretions.
bg taken, no insulin needed for either dose, tube feed at goal of 45 at 0400. labs drawn and new orders sent for K+ rider.
no further neeeds at this time.
[2023-09-26] MEDS: SYNTHROID 137 MCG TUBE (06:14)
--- NOTE | 2023-09-26 07:20 | W.PN.INTV ---
Today's Communication / Plan
Recommendations
MV
Atbs
Diuretic
Assessment
-
Assessment: 83-year-old female former tobacco smoker with a PMHx of hypothyroidism, depression and hypertension/hyperlipidemia who presents with difficulty breathing which worsened throughout the day. She was very short of breath and respiratory
distress and hypoxic which did not improve with BiPAP and she was intubated in the ER. Imaging showed bilateral pneumonia concerning for infection +/- pulmonary edema. BP was elevated requiring nitroglycerin drip. She was also diuresed.
Antibiotics were given in the ER as well as steroids and nebulized bronchodilators. She was transferred to the ICU for further care with asset card clerk/pulmonary services consulted for additional management/recommendations.
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
Impression:
#Acute hypoxemic respiratory failure with hypoxemia and hypercapnia due to bilateral pneumonia +/- acute pulmonary edema in setting of HTN crisis; DDx also includes ADHF
#Sepsis without shock due to bilateral pneumonia (suspect COVID-19 with bacterial superinfection)
#Hypertensive crisis briefly on nitro gtt --> BP now improved
#On mechanical ventilation
#COVID-19 pneumonia
#Acute kidney injury (baseline Cr approximately 1�1 0.2) - worsening
#Elevated troponin - likely due to demand ischemia with type II PR - troponin peaked at 0.723 on 09/23/2023
#Lactic acidosis
#Subclinical hypothyroidism
Plan:
- Continue mechanical ventilation with daily SAT/SBT if clinically appropriate
Current settings: ACV 16-500-5-0.4 (POx 94%)
- Titrate tidal volume, flow and PEEP to maintain plateau pressure <30, and optimize driving pressure to keep between 15�20
- Titrate FiO2 and PEEP to maintain SpO2 >90-94%
- Sedate with goal RASS -1 to -2
Propofol/fentanyl gtt
Passed SBT 09-26, did one hour of weaning trial, however, [id number], ^RSBI, POx low 90s, placed back on ACV
CXR 09-24 showed significant improvement bilateral pulm edema, suspected R basilar infiltrate and new small R>L pleural effusions
CXR 09-25 post RUE PICC showed recurrence of pulmonary edema pattern at L hilar, RUL, RLL areas
Continue decadron and remdesivir for treatment of COVID pneumonia
On empiric atbs cefepime (adjusted for renal function)/vancomycin/(azithromycin)
Elevated QTc, d/c azithro 09-25
Trach secs: few GNB, follow final results
MRSA screening positive
Blood cxs so far negative from 09-22
Flu, RSV, Leg/strep UAg negative
-Trending troponin as it peaked at 0.723 on 09-23 and then decreased to 0.411 on 09-24
On outpatient furosemide 20 mg qd
Dose furosemide 20 mg IV x1 on 09-25, good diuresis obtained, -1kg in 24 hrs with 3.5L diuresis
Redose furosemide 20 mg 09-26
Cardiology following-> recs appreciated
TTE 09-25 confirms new onset LVEF 30-35% with global hypokinesis, now MR mild to mod from previously mild
Continue to trend UOP, sCr --> keep net negative/neutral as tolerated
JUAN, non oliguric, responding to diuretics, Cr improving
Hypothyroidism: continue L-thyroxine
Enteral feedings started 09-25: osmolite
H/o anxiety, continue venlafaxine
- Maintain MAP >65
- Replete K>4, Mg>2, PO4>3
- Maintain euglycemia with goal BG 140�180
- DVT prophylaxis: enoxaparin, transitioned to sc hep 09-25
GI proph: IV PPI
DNR code status
Prognosis guarded
D/w MDT
Prognosis guarded in spite of some interim improvement given age and multiple comorbidities
Critical care time: 35 min
Data:
CXR 09-24-2023: Previously noted parenchymal disease process, which could have represented pneumonia or pulmonary edema,has improved. Interval development and/or progression of small to moderate bilateral pleural effusions.
CXR 09-22-2023:
Status post intubation. No pneumothorax.
Stable moderate bilateral pneumonia.
Subjective Dataa
Subjective Data
Date of Service:
Date of Service: September 26, 2023
Chief Complaint: Natural Resource Officer Follow Up
Subjective:
Continues on mechanical ventilation
Diuresed yesterday after dose of IV Lasix
Down 1 kg weight in the last 24 hours
Review of Systems
General: Other (Follows few commands)
Objective Data
Data Reviewed
Vital Signs / I&O / Oxygen:
Vital Signs
Temp Pulse Resp BP Pulse Ox
98.1 F 84 16 111/61 96
09/26/23 04:00 09/26/23 04:00 09/26/23 04:00 09/26/23 04:00 09/26/23 04:00
Intake and Output
09/25/23 09/26/23 09/27/23
06:59 06:59 06:59
Intake Total 2254.0 / 2342.5 1545.4 / 1545.4
Output Total 1120 / 1195 2960 / 2960
Balance 1134.0 / 1147.5 -1414.6 / -1414.6
SaO2 [CPAP] 99
SaO2 [A/C] 96
SaO2 98
Physical Exam
General: Comfortable
HEENT: Normocephalic, Anicteric, Moist Mucous Membranes, Other (ETT in place) and Other (DHT)
Cardiovascular: S1-S2, Regular Rhythm, Murmur (n) and Peripheral Edema (mild)
Respiratory: Wheeze (Negative), Crackles (Negative), Rhonchi (bilateral), Stridor, ET Tube and Other (NGT)
GI: Soft, Non Distended and Non Tender
Neurology: Other (Sedated but able to follow few commands)
Skin: Warm and Dry
Labs/Micro/Reports
Lab Data
09/26/23 01:37
09/26/23 01:37
Microbiology
09/23/23 16:01 Endotracheal Respiratory Culture - Preliminary
Gram negative bacilli
09/23/23 16:01 Endotracheal Gram Stain - Preliminary
09/22/23 21:20 Blood/Venous Blood Culture - Preliminary
No Growth in 72 hours- Final report to follow
09/22/23 21:20 Blood/Venous Blood Culture - Preliminary
No Growth in 72 hours- Final report to follow
09/23/23 05:11 Nose MRSA Screen - Final
Staph aureus MRSA
09/23/23 12:50 Urine Legionella Urinary Antigen - Final
Negative for Legionella pneumophila Serogroup 1 antigen.
A negative result does not rule out the possiblity of
Legionella infection due to other serogroups or species of
Legionella. Clinical correlation is recommended.
09/23/23 12:50 Urine Streptococcus pneumoniae Antigen (M - Final
Negative for Streptococcus pneumoniae antigen.
A negative result does not exclude infection with
Streptococcus pneumoniae. Clinical correlation is
recommended.
[2023-09-26] MEDS: EFFEXOR 75 MG TUBE ×3 (07:21→21:06)
[2023-09-26] MEDS: MIRALAX 17 GRAMS TUBE (07:21)
[2023-09-26] MEDS: COREG 3.125 MG TUBE ×2 (07:21→21:06)
[2023-09-26] MEDS: NSS (PRESERVATIVE FREE) 10 ML IV (07:22)
[2023-09-26] MEDS: PROTONIX IV 40 MG IV (07:22)
--- NOTE | 2023-09-26 07:55 | PTCARENOTE ---
Received pt @ change of shift intubated/sedated in b/l soft limb restraints w 4 rails- see flow sheet. Opens eyes/blink spontaneously, tracks. B/L pupils 4mm, sluggish. Able to follow simple commands. SR w prolonged QT on monitor. SpO2 100% on vent
settings AC16/500/.50/+5; RT weaned FiO2 and PEEP @ 0730, currently tolerating. Suctioned for mod amt of thick/duarte secretions from ETT. #7.5 ETT, 23 lip in center. Hypoactive BS, abd soft/round/obese. TF- Osmolite 1.2 @ 45mL/hr w 25mL/hr H20 flush;
15mL residual. Wallis in place draining yellow/sediment urine. R DL PICC w prop/fent gtts infusing-see flow sheet. #22 L hand and #18 L wrist patent, dressings c/d/i. Repositioned per protocol. Pt. informed on plan of care today. Safe environment
maintained.
--- NOTE | 2023-09-26 08:48 | PN.CDI ---
CDI
- -
CDI:
Physician Documentation Request
Admit Date: 09/23/23 00:21
Dear Doctor Joyce,
Patient admitted with Covid.
09/23 Project Construction Assistant Manager Consult: 'Acute hypoxemic respiratory failure with hypoxemia and hypercapnia...Sepsis without shock due to bilateral pneumonia (suspect COVID-19 with bacterial superinfection)'
09/25 Hospitalist PN: 'Acute Hypoxemic Respiratory Failure, VDRF�- s/p intubation on arrival'
Selected Entries
09/22/23
21:09 09/22/23
21:15 09/22/23
22:36
Pulse 152 148 142
09/22/23
21:17 09/22/23
21:30 09/22/23
22:20
Resp Rate 35 34 35
Please update the status of the Sepsis documented by the candy cutter hand:
Sepsis, POA
- Systemic manifestations of infection, with 2 or more SIRS criteria which include:
- Fever >100.4 degrees F or hypothermia < 96.8 degrees F
- Leukocytosis - WBC > 12,000 or leukopenia - WBC < 4,000 or > 10% bands
- Tachycardia > 90 beats per minute
- Tachypnea - RR > 20 breaths per minute or PaCO2 , 32mmHg
Source: Merck Manual 2013
Severe Sepsis
- Sepsis with associated acute organ dysfunction, such as respiratory failure
- Documentation should indicate the association between the sepsis and the organ dysfunction
Sepsis ruled out
Other
Use of terms such as suspected, likely, concern for, or probable (associated with a specific diagnosis that is being evaluated, monitored, or treated as if it exists) are acceptable and can be coded in the inpatient setting, when documented at the
time of discharge.
Thank you,
Courtney Rg RN, BSN
CDI Specialist
Available via [place] text
Please use your independent medical judgment in providing your response.
--- NOTE | 2023-09-26 09:15 | PHA.VAN.FU ---
Vancomycin Assessment / Plan
- Assessment
Renal Function: Stable
WBC's are: Stable
In the past 24 hrs, patient has been: Afebrile
Concomitant Antimicrobials: cefepime, remdesivir
- Assessment - Therapeutic Drug Monitoring
Random Level: 18.7 - drawn ~14H after previous dose of 1000mg
- Dosing Plan
Dosing by Level: Re-dose today (Vanc 1000mg - level drawn very early this morning and additional clearance anticipated)
- Monitoring Plan
Random Level: 09/27 06
- Follow Up
Pharmacy will continue to follow.
Vancomycin Follow UP
- -
Patient Age: 83
Patient Sex: Female
Vancomycin Day #: 3
Indication: Pulmonary/Respiratory
Requesting Provider: Tiago
Pertinent Antimicrobial Allergies:
NKDA
Height / Weight:
Height 5 ft 4 in
Actual Weight 101.2 kg
IBW in k.7
Pertinent Past Medical History: BMI ~39
- Vital Signs / Lab Results
Temp Pulse Resp BP Pulse Ox
97.1 F 91 15 141/89 100
09/26/23 08:12 09/26/23 07:31 09/26/23 07:31 09/26/23 07:31 09/26/23 07:55
Lab Results - Hematology
09/24/23 09/25/23 09/26/23
04:34 04:32 01:37
WBC 15.8 H 13.0 H 12.7 H
Lab Results - Chemistry
09/24/23 09/25/23 09/26/23
04:34 04:32 01:37
BUN 50 H 54 H 55 H
Creatinine 1.9 H 1.5 H 1.4 H
Estimated Creat Clear 27 34 37
Microbiology Results
09/23/23 16:01 Respiratory Culture - Preliminary
Endotracheal Escherichia coli
Staphylococcus aureus
Gram Stain - Preliminary
09/22/23 21:20 Blood Culture - Preliminary
Blood/Venous No Growth in 72 hours- Final report to follow
09/22/23 21:20 Blood Culture - Preliminary
Blood/Venous No Growth in 72 hours- Final report to follow
09/23/23 05:11 MRSA Screen - Final
Nose Staph aureus MRSA
Therapeutic Drug Monitoring
Random Vancomycin 18.7 ug/ml 09/26/23 01:37
--- NOTE | 2023-09-26 09:22 | W.PN.CARDCBS ---
Today's Communication / Plan
-
Furosemide 20 mg IV x 1
Potassium via tube
Aspirin 81 mg a day
Await echocardiogram
Eventual ischemic evaluation
Impression / Plan
-
Impression:
Acute respiratory failure requiring intubation
COVID-pneumonia
Acute HFrEF, EF now 30-35% had been normal February 2023
Hypotension requiring pressors�resolved
Acute on chronic renal failure.
Hypothyroidism
Non-ST segment elevation myocardial infarction
Echo February 2023, EF 55 to 60% with mild LVH, mild MR, mild aortic stenosis
Echo 09/25/2023: EF 30-35%, global hypokinesis, mild to moderate MR, mild TR, pulmonary artery systolic pressure is 36 mmHg, pleural effusion seen
Plan:
She received Lasix 20 mg IV x 1 with brisk diuresis and actual improvement in creatinine to 1.4 today.
Will give an additional 20 mg IV furosemide today. Will supplement potassium as well.
She has dramatic EKG changes suggesting anterolateral ischemia with a peak troponin of 0.7. Will await echocardiogram when patient is out of isolation, and consider need for ischemic evaluation once she is clinically stabilized.
Start aspirin. She is on relatively high-dose subcu heparin at this time.
Blood pressure still labile occasionally under 100 systolic so we will not uptitrate beta-galen.
Given JUAN, avoid JUAN PABLO/ARB
Continue atorvastatin.
Management of ventilator, COVID, etc. per hospitalist and corporate operations compliance manager.
We will continue to follow.
Progress Note - Special Delivery Clerk
Subjective
Date of Service: September 26, 2023:
Patient on ventilator
Medications: IV fentanyl, IV propofol, Decadron 6 IV daily, remdesivir, pantoprazole, carvedilol 3.125 twice daily, atorvastatin 20 a day, levothyroxine 137 mcg daily, IV vancomycin, subcu heparin, Effexor, cefepime, currently no furosemide
Outpatient meds. Amlodipine Abilify, furosemide 20 mg a day, potassium 10 mill equivalents daily
PMH/PSH/SH/FH: Reviewed
Review of systems: Negative except as above
141/89, pulse 91, respirate 15, afebrile, sats 100%, intake and output -1.8 L, weight is 101.2 kg, down 1.7 kg, admission weight was 106.5 kg
White count 12.7, hemoglobin 13.1, bicarb 21, BUN/creatinine 55 and 1.4, potassium 3.6. Creatinine peaked at 1.9 on , proBNP was 11,900 on the , peak troponin was 0.723
Chest x-ray 129 infiltrates right lung greater than left, mild vascular distention, left infiltrate/effusion
ECG on the prolonged QT, PVCs, anterolateral T wave inversions consistent with ischemia
Objective
Labs:
09/26/23 01:37
09/26/23 01:37
Labs
Hgb 13.1 g/dL (12.0-16.0) 09/26/23 01:37
Hct 38.9 % (37.0-47.0) 09/26/23 01:37
Plt Count 193 10^3/uL (130-400) 09/26/23 01:37
PT 13.4 Sec (11.4-14.6) 09/22/23 22:10
INR 1.00 09/22/23 22:10
APTT 23.6 Sec (23.4-35.0) 09/22/23 22:10
Sodium 138 mmol/L (135-145) 09/26/23 01:37
Potassium 3.6 mmol/L (3.5-5.1) 09/26/23 01:37
BUN 55 mg/dl (7-17) H 09/26/23 01:37
Creatinine 1.4 mg/dL (0.6-1.0) H 09/26/23 01:37
Glucose 139 mg/dl (70-99) H 09/26/23 01:37
Troponins
09/23/23 09/24/23
12:07 04:34
Troponin I 0.723 H* 0.411 H*
Vital Signs and I&O:
Vital Signs
Temp Pulse Resp BP Pulse Ox
36.2 C 91 15 141/89 100
09/26/23 08:12 09/26/23 07:31 09/26/23 07:31 09/26/23 07:31 09/26/23 07:55
Vital Signs
Temp Pulse Resp BP Pulse Ox
36.2 C 91 15 141/89 100
09/26/23 08:12 09/26/23 07:31 09/26/23 07:31 09/26/23 07:31 09/26/23 07:55
Intake & Output
09/24/23 09/25/23 09/26/23 09/27/23
07:59 07:59 07:59 07:59
Intake Total 258.6 / 277.1 2324.0 / 2662.5 1541.2 / 1625.5 84.3 / 84.3
Output Total 1525 / 1565 1160 / 1210 3010 / 3050 40 / 40
Balance -1266.4 / -1287.9 1164.0 / 1452.5 -1468.8 / -1424.5 44.3 / 44.3
Physical Exam
Physical Exam
Not examined in light of COVID isolation
[2023-09-26] MEDS: VANCOCIN 200 IV (10:50)
[2023-09-26 11:03] LABS: B.E. -3.3 mmol/L; HCO3 20.3 mmol/L (21-28); PCO2 32 mmHg (32-35); PO2 70 mmHg (83-108); pH 7.41 (7.35-7.45)
--- NOTE | 2023-09-26 11:07 | PTCARENOTE ---
Addendum entered by Sharmin Ugalde RN 09/26/23 11:28:
ABG results reviewed by Dr. Gilbert. Dr. Gilbert to bedside for assessment. Plan to keep pt intubated. RT switched pt back over to AC settings 16/500/.60/+5. Admin fent bolus for CPOT and sedation gtts back @ half rate- see MAR/flow sheet. Pt.
informed on plan of care. Safe environment maintained.
Original Note:
pt.'s sedation turned off for spont awakening trial- see flow sheet. Pt. awake/able to nod head 'yes' for understanding vent weaning instructions. RT initiated vent wean @ 0953 to CPAP 5/5/.40, tolerating wean. Tachycardic into 120's, assembler equipment
Dr Gilbert, aware. ABG drawn and sent to lab 1hr in to vent wean, awaiting results for further plan of care. Pt. continuously updated on plan of care. Son to bedside, also updated.
[2023-09-26] MEDS: SUBLIMAZE 50 MCG IV ×5 (11:26→21:18)
[2023-09-26] MEDS: LASIX 20 MG IV (12:01)
[2023-09-26] MEDS: LOW STRENGTH ASPIRIN 81 MG TUBE (12:03)
[2023-09-26] MEDS: KCL ELIXIR 20 MEQ TUBE (12:03)
[2023-09-26] MEDS: VEKLURY 250 MG IV (12:04)
[2023-09-26] MEDS: NSS 30 IV (12:04)
[2023-09-26 12:07] LABS: Glucose - Point of Care 164 mg/dl (70-99)
[2023-09-26] MEDS: NOVOLOG FLEXPEN-LOW RESISTANCE 1 UNITS SC (13:00)
[2023-09-26] MEDS: SUBLIMAZE 100 IV (13:15)
--- NOTE | 2023-09-26 14:11 | PTCARENOTE ---
pt w 25 beat run svt @ 1356. Self resolved, objectively asymptomatic; unable to assess subjective symptoms d/t sedation/intubation. Cards, Dr. Louie, made aware. No new orders @ this time.
--- NOTE | 2023-09-26 16:04 | CM ---
CM following re: discharge planning.
Discussed in rounds, reviewed pt's chart. Per Rounds meeting, pt remains intubated, continue supportive care.
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
D/C plan: uncertain at this time and will depend on pt's progress.
CM will follow with discharge plan updates as hospitalization progresses
[2023-09-26] MEDS: LIPITOR 20 MG TUBE (18:00)
[2023-09-26 18:02] LABS: Glucose - Point of Care 137 mg/dl (70-99)
--- NOTE | 2023-09-26 18:09 | W.PN.HOSP.TC ---
Addendum entered and electronically signed by Venkatesh Cook MD 09/26/23 18:21:
Sepsis-POA
Original Note:
Today's Communication/Plan
-
Diuresis
Echo with worsened EF
Antibiotics
Steroids
Assessment / Plan
Assessment / Plan
Physical Exam
General: Intubated
HEENT: Normocephalic
Respiratory: Equal air entry bilaterally
Cardiac: S1/S2. tachycardia.
GI: Soft and Nontender
Musculoskeletal: No Edema
Skin: Warm and Dry
Neuro: Sedated
Psych: Calm

Echocardiogram 09/25/23 as per bobbin coil winder's report:
CONCLUSIONS
Normal left ventricular wall thickness. Normal left ventricular chamber size.
Moderately reduced left ventricular systolic function. Left ventricular
ejection fraction is 30-35%. Global hypokinesis.
Mild to moderate mitral regurgitation.
Mild tricuspid regurgitation. Estimated pulmonary artery pressure of 36
mmHgPleural effusion present.
Compared to the previous echo from February 2023, EF was 55-60% and is now reduced
and MR is worse.

A/P:� Patient is an 83y F with PMH significant for hypothyroidism and anxiety / depression who presented to the ED in respiratory distress 2/2 covid-19 with superimposed pneumonia; initial concern for heart failure.
Acute Hypoxemic Respiratory Failure
VDRF
�- s/p intubation on arrival
- likely multifactorial 2/2 covid and superimposed bacterial pneumonia
- vent management per Pulmonary
- daily SAT
�- Treat individual issues as outlined below.
Acute COVID-19 Pneumonia
Superimposed bacterial pneumonia
MRSA Positive
Sputum cultures growing E. coli and S. aureus
- Sputum cultures growing E. coli and S. aureus
�- COVID positive
�- Patient is vaccinated x multiple doses according to assisted living paperwork.
- IV Decadron/Remdesivir
- F/U sputum culture and blood cultures
- continue antibiotics including Vancomycin and Cefepime
- appreciate pulmonary consult
Acute HFrEF - EF now 30-35% had been normal February 2023
Hypertensive Emergency
- concern raised for heart failure but creatinine rising with diuresis - lasix on hold for now
- was on nitro gtt on admit given SBP > 190
�- Update Echo (February 2023 with LVEF 55-60 and mild )
�- Cardiology evaluation appreciated: IV Fluids as per primary service but would watch volume status closely
- Echocardiogram on 09/25/23 - results are above - with worsened ejection fraction
- Diuretics as per cardiology
- Aspirin started; continue
- Will need eventual ischemic evaluation
- Continue Atorvastatin
Lactic Acidosis
�- Suspect this is mediated on hypoxemia > hypovolemia given evidence of volume overload, etc.
�- Correct hypoxemia as noted above.
JUAN
- creatinine climbed to 1.9 on 09/24/23 with diuresis
- lasix on hold for now
- Avoid JUAN PABLO-I or ARB
- consider fluids back
Hypothyroidism
- resume [employer] synthroid
Anxiety / Depression
- resume home meds post extubation; on hold with sedation
DVT Prophylaxis:� Lovenox
Code Status:� Per Dr. Little: Reviewed with son in detail.� Patient had previously been DNR on 2020 admission and son would like to honor those wishes.
Family Discussions
I spoke to patient's family, in the presence of patient's nurse, outside of patient's room on 09/25/23. All questions and concerns were answered to satisfaction.
Ventilator dependent respiratory failure, pneumonia and worsened heart failure, requiring intubation and monitoring in the ICU is a high-risk encounter.
Anticipated Discharge: > 48 hours
Subjective/Interval History
-
Date of Service: September 26, 2023
Patient was seen and examined. She remains intubated and sedated.
Objective Data
-
Labs:
Laboratory Results
09/26/23
10:56
HCO3 20.3 L
Vital Signs:
Vital Signs
Temp Pulse Resp BP Pulse Ox
99.9 F 112 16 157/111 92
09/26/23 15:42 09/26/23 16:20 09/26/23 16:20 09/26/23 16:00 09/26/23 16:20
I&O
09/25/23 09/26/23 09/27/23
06:59 06:59 06:59
Intake Total 2254.0 / 2342.5 1545.4 / 1629.7 1340.0 / 1340.0
Output Total 1120 / 1195 2960 / 3085 2140 / 2140
Balance 1134.0 / 1147.5 -1414.6 / -1455.3 -800.0 / -800.0
--- NOTE | 2023-09-26 20:00 | PTCARENOTE ---
rec`d pt at 1900 intubated and sedated. pupils 4mm. follows commands such as squeezing hands. SR to ST on monitor with prolonged QTC and PVCs. +1 edema. HR in 120s. resolved when given fent bolus. Rt double luman picc in place running with fent and
prop. 18g L wrist and 22g L hand also in place and capped. #7.[address] on rt side. 23@lip. vent settings... AC 16/500/50%/5 of peep. restraints on pt for protective intervention.Rt nare dobhoff with TF running. Osmo 1.2 @45mL/hr with 25 flush.
therm ziegler in place draining yellow, sediment urine. sacral foam on. Safe environment maintained.
[2023-09-26] MEDS: DECADRON 6 MG IV (21:06)
[2023-09-26 23:47] LABS: Glucose - Point of Care 123 mg/dl (70-99)
[2023-09-27] VITALS (40 sets, daily range): BP systolic 74–177; BP diastolic 39–126; BMI 38.4
--- NOTE | 2023-09-27 | PTCARENOTE ---
no changes in pt assessment. prop and fent titrated. safe environment.
[2023-09-27] MEDS: HEPARIN 5000 UNITS SC ×4 (00:53→23:54)
[2023-09-27] MEDS: MAXIPIME 1000 MG IV ×2 (01:00→09:43)
[2023-09-27] MEDS: STERILE WATER FOR INJECTION 10 ML IV ×2 (01:00→09:43)
--- NOTE | 2023-09-27 04:00 | PTCARENOTE ---
no changes in pt assessment. sacrum foam changed.
[2023-09-27] MEDS: SUBLIMAZE 100 IV ×2 (04:13→23:46)
[2023-09-27] MEDS: DIPRIVAN 100 IV ×2 (04:13→17:11)
[2023-09-27 05:02] LABS: Hematocrit 45.9 % (37.0-47.0); Hemoglobin 15.1 g/dL (12.0-16.0); Mean Corp Hgb Conc. 32.9 g/dL (33.0-37.0); Mean Corpuscular Volume 91.1 fL (81.0-99.0); Mean Platelet Volume 12.3 fL (7.4-10.4); Platelet Count 212 10^3/uL (130-400); Red Blood Cell Count 5.04 10^6/uL (4.20-5.40); Red Cell Dist. Width 14.9 % (11.5-14.5); White Blood Cell Count 8.1 10^3/uL (4.8-10.8)
[2023-09-27 05:31] LABS: Blood Urea Nitrogen 58 mg/dl (7-17); Calcium 8.7 mg/dl (8.4-10.2); Carbon Dioxide 22 mmol/L (22-30); Chloride 107 mmol/L (98-107); Estimated Creatinine Clearance 39 ml/min; Glucose 174 mg/dl (70-99); Magnesium 2.1 mg/dl (1.6-2.3); Potassium 4.5 mmol/L (3.5-5.1); Sodium 138 mmol/L (135-145); eGFR 41.31
[2023-09-27 05:48] LABS: Vancomycin Random 19.6 ug/ml
[2023-09-27] MEDS: NOVOLOG FLEXPEN-LOW RESISTANCE SC ×3 (06:27→23:52)
[2023-09-27] MEDS: SYNTHROID 137 MCG TUBE (06:33)
[2023-09-27 06:35] LABS: Glucose - Point of Care 145 mg/dl (70-99)
[2023-09-27] MEDS: PROTONIX IV 40 MG IV (07:52)
[2023-09-27] MEDS: NSS (PRESERVATIVE FREE) 10 ML IV (07:53)
[2023-09-27] MEDS: COREG 3.125 MG TUBE ×2 (07:53→21:13)
[2023-09-27] MEDS: EFFEXOR 75 MG TUBE ×3 (07:53→21:13)
[2023-09-27] MEDS: MIRALAX 17 GRAMS TUBE (07:53)
[2023-09-27] MEDS: LOW STRENGTH ASPIRIN 81 MG TUBE (07:53)
--- NOTE | 2023-09-27 08:07 | W.PN.INTV ---
Today's Communication / Plan
Recommendations
MV
Dexmed
Atbs
Dexam/remd
Diuretic
Osmolite
CXR AM
Assessment
-
Assessment: 83-year-old female former tobacco smoker with a PMHx of hypothyroidism, depression and hypertension/hyperlipidemia who presents with difficulty breathing which worsened throughout the day. She was very short of breath and respiratory
distress and hypoxic which did not improve with BiPAP and she was intubated in the ER. Imaging showed bilateral pneumonia concerning for infection +/- pulmonary edema. BP was elevated requiring nitroglycerin drip. She was also diuresed.
Antibiotics were given in the ER as well as steroids and nebulized bronchodilators. She was transferred to the ICU for further care with director of product design/pulmonary services consulted for additional management/recommendations.
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
Impression:
#Acute hypoxemic respiratory failure with hypoxemia and hypercapnia due to bilateral pneumonia +/- acute pulmonary edema in setting of HTN crisis; DDx also includes ADHF
#Sepsis without shock due to bilateral pneumonia (suspect COVID-19 with bacterial superinfection)
#Hypertensive crisis briefly on nitro gtt --> BP now improved
#On mechanical ventilation, intubated at ER
#COVID-19 pneumonia
#Acute kidney injury (baseline Cr approximately 1�1 0.2) - worsening
#Elevated troponin - likely due to demand ischemia with type II WA - troponin peaked at 0.723 on 09/23/2023
#Lactic acidosis
#Subclinical hypothyroidism
Plan:
- Continue mechanical ventilation with daily SAT/SBT if clinically appropriate
Current settings: ACV 16-500-5-0.4 (POx 94%)
- Titrate tidal volume, flow and PEEP to maintain plateau pressure <30, and optimize driving pressure to keep between 15�20
- Titrate FiO2 and PEEP to maintain SpO2 >90-94%
- Sedate with goal RASS -1 to -2
Propofol/fentanyl gtt, transitioned to dexmedetomidine gtt 09-27
Passed SBT 09-26, did one hour of weaning trial, however, [id number], ^RSBI, POx low 90s, placed back on ACV
09-27 AM, SBT satisfactory, weaned for about 2 hrs, resp fatigue, agitation, tachycardia, started on PSV 15/5 with good tolerance, continue PSV as tolerated, rest on ACV as needed and o/n
CXR 09-24 showed significant improvement bilateral pulm edema, suspected R basilar infiltrate and new small R>L pleural effusions
CXR 09-25 post RUE PICC showed recurrence of pulmonary edema pattern at L hilar, RUL, RLL areas
CXR in AM
Continue decadron and remdesivir for treatment of COVID pneumonia
On empiric atbs cefepime (adjusted for renal function)/vancomycin/(azithromycin)
(Elevated QTc, d/c azithro 09-25)
Trach secs: E coli, hawkins-S x I to cefazolin and R to ampicillin and amp/sulb
Cefepime changed to ceftriaxone high dose 09-27
MRSA screening positive
Blood cxs so far negative from 09-22
Flu, RSV, Leg/strep UAg negative
-Trending troponin as it peaked at 0.723 on 09-23 and then decreased to 0.411 on 09-24
On outpatient furosemide 20 mg qd
Dose furosemide 20 mg IV x1 on 09-25, good diuresis obtained, -1kg in 24 hrs with 3.5L diuresis
Redose furosemide 20 mg 09-26 and 09-27
Cardiology following-> recs appreciated
TTE 09-25 confirms new onset LVEF 30-35% with global hypokinesis, now MR mild to mod from previously mild
Continue to trend UOP, sCr --> keep net negative/neutral as tolerated
JUAN, non oliguric, responding to diuretics, Cr improving
Hypothyroidism: continue L-thyroxine
Enteral feedings started 09-25: osmolite
H/o anxiety, continue venlafaxine
- Maintain MAP >65
- Replete K>4, Mg>2, PO4>3
- Maintain euglycemia with goal BG 140�180
- DVT prophylaxis: enoxaparin, transitioned to sc hep 09-25
GI proph: IV PPI
DNR code status
Prognosis guarded
D/w MDT
Prognosis guarded in spite of some interim improvement given age and multiple comorbidities
Critical care time: 35 min
Data:
CXR 09-24-2023: Previously noted parenchymal disease process, which could have represented pneumonia or pulmonary edema,has improved. Interval development and/or progression of small to moderate bilateral pleural effusions.
CXR 09-22-2023:
Status post intubation. No pneumothorax.
Stable moderate bilateral pneumonia.
Subjective Dataa
Subjective Data
Date of Service:
Date of Service: September 27, 2023
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
Subjective:
Continues on mech ventilation
Did 1.5 hrs weaning yesterday, then returned to ACV due to ^RSBI
This morning did up to 2 hrs of weaning, agitated, tachycardic
Review of Systems
General: Other (intubated)
Objective Data
Data Reviewed
Vital Signs / I&O / Oxygen:
Vital Signs
Temp Pulse Resp BP Pulse Ox
99.2 F 102 15 168/107 96
09/27/23 07:48 09/27/23 06:20 09/27/23 06:20 09/27/23 06:00 09/27/23 06:20
Intake and Output
09/26/23 09/27/23 09/28/23
06:59 06:59 06:59
Intake Total 1545.4 / 1629.7 2473.4 / 2473.4
Output Total 2960 / 3085 3890 / 3890
Balance -1414.6 / -1455.3 -1416.6 / -1416.6
SaO2 [CPAP] 96
SaO2 [A/C] 95
SaO2 96
Physical Exam
HEENT: Normocephalic, Anicteric, Moist Mucous Membranes, Other (ETT in place) and Other (DHT)
Cardiovascular: S1-S2, Regular Rhythm, Murmur (n) and Peripheral Edema (mild)
Respiratory: Wheeze (Negative), Crackles (Negative), Rhonchi (bilateral), Stridor, ET Tube and Other (NGT)
GI: Soft, Non Distended and Non Tender
Neurology: Other (Sedated but able to follow few commands, intermittent agitation)
Skin: Warm and Dry
Labs/Micro/Reports
Lab Data
09/27/23 04:29
09/27/23 04:29
Laboratory Results
09/26/23
10:56
pH 7.41
pCO2 32
pO2 70 L
HCO3 20.3 L
O2 Delivery Level
Microbiology
09/22/23 21:20 Blood/Venous Blood Culture - Preliminary
No Growth in 4 days- Final report to follow
09/22/23 21:20 Blood/Venous Blood Culture - Preliminary
No Growth in 4 days- Final report to follow
09/23/23 16:01 Endotracheal Respiratory Culture - Preliminary
Escherichia coli
Staphylococcus aureus
09/23/23 16:01 Endotracheal Gram Stain - Preliminary
09/23/23 05:11 Nose MRSA Screen - Final
Staph aureus MRSA
--- NOTE | 2023-09-27 08:59 | PHA.VAN.FU ---
Vancomycin Assessment / Plan
- Assessment
Renal Function: SCR Decreasing
WBC's are: WNL
In the past 24 hrs, patient has been: Afebrile
Concomitant Antimicrobials: cefepime, remdesivir
- Assessment - Therapeutic Drug Monitoring
Random Level: 19.6 - drawn ~17.5H after previous dose of 1000mg
- Dosing Plan
Dosing by Level: Hold off on dosing today
- Monitoring Plan
Random Level: 09/28 06
- Follow Up
Pharmacy will continue to follow.
Vancomycin Follow UP
- -
Patient Age: 83
Patient Sex: Female
Vancomycin Day #: 4
Indication: Pulmonary/Respiratory
Requesting Provider: Tiago
Pertinent Antimicrobial Allergies:
NKDA
Height / Weight:
Height 5 ft 4 in
Actual Weight 101.5 kg
IBW in k.7
Pertinent Past Medical History: BMI ~39
- Vital Signs / Lab Results
Temp Pulse Resp BP Pulse Ox
99.2 F 120 15 168/107 92
09/27/23 07:48 09/27/23 08:45 09/27/23 08:45 09/27/23 06:00 09/27/23 08:45
Lab Results - Hematology
09/25/23 09/26/23 09/27/23
04:32 01:37 04:29
WBC 13.0 H 12.7 H 8.1
Lab Results - Chemistry
09/25/23 09/26/23 09/27/23
04:32 01:37 04:29
BUN 54 H 55 H 58 H
Creatinine 1.5 H 1.4 H 1.3 H
Estimated Creat Clear 34 37 39
Microbiology Results
09/22/23 21:20 Blood Culture - Preliminary
Blood/Venous No Growth in 4 days- Final report to follow
09/22/23 21:20 Blood Culture - Preliminary
Blood/Venous No Growth in 4 days- Final report to follow
09/23/23 16:01 Respiratory Culture - Preliminary
Endotracheal Escherichia coli
Staphylococcus aureus
Gram Stain - Preliminary
Therapeutic Drug Monitoring
Random Vancomycin 19.6 ug/ml 09/27/23 04:29
--- NOTE | 2023-09-27 09:03 | W.PN.CARDCBS ---
Today's Communication / Plan
-
Give another 20 mg of IV Lasix and follow-up
Eventually when stable consider right and left heart cath
Check lipids
Impression / Plan
-
Impression:
Acute respiratory failure requiring intubation
COVID-pneumonia
Acute HFrEF, EF now 30-35% had been normal February 2023
Hypotension requiring pressors�resolved
Acute on chronic renal failure.
Hypothyroidism
Non-ST segment elevation myocardial infarction
Echo February 2023, EF 55 to 60% with mild LVH, mild MR, mild aortic stenosis
Echo 09/25/2023: EF 30-35%, global hypokinesis, mild to moderate MR, mild TR, pulmonary artery systolic pressure is 36 mmHg, pleural effusion seen
Plan:
She remains critically ill. Continues on ventilator and intubated.
She received IV Lasix and has been diuresing. Continue. Creatinine has improved. Renal insufficiency likely multifactorial.
Will give an additional 20 mg IV furosemide today and follow.
As noted she has dramatic EKG changes suggesting anterolateral ischemia with a peak troponin of 0.7. Echocardiogram with ejection fraction decreased at 30 to 35% with global hypokinesis. Eventually when clinically stable/extubated and if agreeable
would consider right and left heart catheterization.
Continue aspirin.
Blood pressure still labile occasionally under 100 systolic so we will not uptitrate beta-galen.
Given JUAN, avoid JUAN PABLO/ARB
Continue atorvastatin. Lipids ordered.
Management of ventilator, COVID, etc. per hospitalist and casing man.
We will continue to follow.
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
Subjective
Date of Service: September 27, 2023
Sedated on the ventilator
Objective
Labs:
09/27/23 04:29
09/27/23 04:29
Labs
Hgb 15.1 g/dL (12.0-16.0) 09/27/23 04:29
Hct 45.9 % (37.0-47.0) 09/27/23 04:29
Plt Count 212 10^3/uL (130-400) 09/27/23 04:29
PT 13.4 Sec (11.4-14.6) 09/22/23 22:10
INR 1.00 09/22/23 22:10
APTT 23.6 Sec (23.4-35.0) 09/22/23 22:10
Sodium 138 mmol/L (135-145) 09/27/23 04:29
Potassium 4.5 mmol/L (3.5-5.1) 09/27/23 04:29
BUN 58 mg/dl (7-17) H 09/27/23 04:29
Creatinine 1.3 mg/dL (0.6-1.0) H 09/27/23 04:29
Glucose 174 mg/dl (70-99) H 09/27/23 04:29
Vital Signs and I&O:
Vital Signs
Temp Pulse Resp BP Pulse Ox
99.2 F 120 15 168/107 92
09/27/23 07:48 09/27/23 08:45 09/27/23 08:45 09/27/23 06:00 09/27/23 08:45
Vital Signs
Temp Pulse Resp BP Pulse Ox
99.2 F 120 15 168/107 92
09/27/23 07:48 09/27/23 08:45 09/27/23 08:45 09/27/23 06:00 09/27/23 08:45
Intake & Output
09/25/23 09/26/23 09/27/23 09/28/23
06:59 06:59 06:59 06:59
Intake Total 2254.0 / 2342.5 1545.4 / 1629.7 2473.4 / 2560.2 86.8 / 86.8
Output Total 1120 / 1195 2960 / 3085 3890 / 3890
Balance 1134.0 / 1147.5 -1414.6 / -1455.3 -1416.6 / -1329.8 86.8 / 86.8
Physical Exam
Physical Exam
General: Sedated on ventilator
Neck: Intubated
Heart: Tachycardia with distant heart sounds
Lungs: Intubated with coarse anterior breath sounds
Extremities: No clubbing, cyanosis +1 edema bilaterally.
Neuro: Sedated
--- NOTE | 2023-09-27 09:32 | PTCARENOTE ---
rec`d pt at 0700 intubated and sedated. pupils 4mm. follows commands such as squeezing hands. SR to ST on monitor with prolonged PVCs and short bursts of SVT. +1 edema. HR in 120-140s with sedation off for SAT. Rt double luman picc in place running
with fent and prop on hold. 18g L wrist and 22g L hand also in place and capped. #7.[address] on center. 23@lip. vent settings... AC 16/500/50%/5 of peep. Awaiting SBT. restraints on pt for protective intervention. Rt nare dobhoff with TF Osmo
1.2 @45mL/hr with 25 flush-currently on hold for SBT. therm ziegler in place draining yellow urine. sacral foam on. Safe environment maintained.
[2023-09-27] MEDS: LASIX 20 MG IV (09:43)
[2023-09-27 09:51] LABS: HDL Cholesterol 50 mg/dl; LDL Cholesterol, Calculated 92 mg/dl; Total Cholesterol 175 mg/dl (50-199); Triglyceride 168 mg/dl (10-149); Very Low Density Lipoprotein 33 mg/dl (0-30)
[2023-09-27 10:14] LABS: HCO3 22.6 mmol/L (21-28); O2 Saturation % 98.9 % (94-98); PCO2 34 mmHg (32-35); PO2 86 mmHg (83-108); pH 7.43 (7.35-7.45)
[2023-09-27] MEDS: SUBLIMAZE 50 MCG IV ×2 (11:14→15:00)
[2023-09-27 11:35] LABS: Glucose - Point of Care 131 mg/dl (70-99)
[2023-09-27] MEDS: PRECEDEX 100 IV (11:54)
--- NOTE | 2023-09-27 12:12 | PTCARENOTE ---
SBT continues. ABG drawn. Dr Gilbert would like to continue trial and no extubaation today. Pt very anxious, HR elevated, banging on railings, indicating she wants ETT out. ECG performed for QTC. Fentanyl bolus given and precedex gtt began as
ordered. Son Dom to bedside.
--- NOTE | 2023-09-27 15:19 | PTCARENOTE ---
VSS with HR continuing in 110-120s. Despite increasing precedex, pt continues to flap arms and tap on railing. Denies pain, needing to have BM. Nods yes to SOB and wanting ETT out. Dr. Gilbert notified and returned to AC settings. Precedex off,
Fent bolus given and gtt restarted along with propofol.
--- NOTE | 2023-09-27 16:54 | W.PN.HOSP.TC ---
Today's Communication/Plan
-
Continue antibiotics
Continue diuresis day by day depending on volume status
Worsened cardiac ejection fraction and ekg changes require eventual ischemic evaluation
Please see below
Assessment / Plan
Assessment / Plan
Physical Exam
General: Intubated
HEENT: Normocephalic
Respiratory: Equal air entry bilaterally
Cardiac: S1/S2. tachycardia.
GI: Soft and Nontender
Musculoskeletal: No Edema
Skin: Warm and Dry
Neuro: Sedated
Psych: Calm

Echocardiogram 09/25/23 as per accounts receivable collector's report:
CONCLUSIONS
Normal left ventricular wall thickness. Normal left ventricular chamber size.
Moderately reduced left ventricular systolic function. Left ventricular
ejection fraction is 30-35%. Global hypokinesis.
Mild to moderate mitral regurgitation.
Mild tricuspid regurgitation. Estimated pulmonary artery pressure of 36
mmHgPleural effusion present.
Compared to the previous echo from February 2023, EF was 55-60% and is now reduced
and MR is worse.

A/P:� Patient is an 83y F with PMH significant for hypothyroidism and anxiety / depression who presented to the ED in respiratory distress 2/2 covid-19 with superimposed pneumonia; initial concern for heart failure.
Acute Hypoxemic Respiratory Failure
VDRF
�- s/p intubation on arrival
- likely multifactorial 2/2 covid and superimposed bacterial pneumonia
- vent management per Pulmonary
- daily SAT
�- Treat individual issues as outlined below.
Acute COVID-19 Pneumonia
Superimposed bacterial pneumonia
MRSA Positive
Sputum cultures growing E. coli and S. aureus
- Sputum cultures growing E. coli and S. aureus
�- COVID positive
�- Patient is vaccinated x multiple doses according to assisted living paperwork.
- Continue IV Decadron/Remdesivir
- F/U sputum culture and blood cultures
- continue antibiotics including Vancomycin and Cefepime
- appreciate pulmonary consult
Acute HFrEF - EF now 30-35% had been normal February 2023
Suspected Anterolateral Cardiac Ischemia
Hypertensive Emergency
- concern raised for heart failure but creatinine rising with diuresis - Lasix being given a little day by day now - diuretics as per cardiology
- was on nitro gtt on admit given SBP > 190
�- Update Echo (February 2023 with LVEF 55-60 and mild )
�- Cardiology evaluation appreciated: can do IV Fluids as per primary service but would watch volume status closely
- Echocardiogram on 09/25/23 - results are above - with worsened ejection fraction
- Aspirin started; continue
- Will need eventual ischemic evaluation - eventually when clinically stable/extubated and if agreeable would consider right and left heart catheterization
- Continue Atorvastatin
Lactic Acidosis
�- Suspect this is mediated on hypoxemia > hypovolemia given evidence of volume overload, etc.
�- Correct hypoxemia as noted above.
JUAN
- creatinine climbed to 1.9 on 09/24/23 with diuresis
- Lasix given on a daily prn basis for now
- Avoid JUAN PABLO-I or ARB
- consider fluids back
Hypothyroidism
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
Anxiety / Depression
- resume home meds post extubation; on hold with sedation
DVT Prophylaxis:� Lovenox
Code Status:� Per Dr. Little: Reviewed with son in detail.� Patient had previously been DNR on 2020 admission and son would like to honor those wishes.
Family Discussions
I spoke to patient's family, in the presence of patient's nurse, outside of patient's room on 09/25/23. All questions and concerns were answered to satisfaction.
Ventilator dependent respiratory failure, pneumonia and worsened heart failure, acute ischemia, requiring intubation and monitoring in the ICU is a high-risk encounter.
Anticipated Discharge: > 48 hours
Subjective/Interval History
-
Date of Service: September 27, 2023
Patient was seen and examined. She remains intubated.
Objective Data
-
Labs:
Laboratory Results
09/27/23 09/27/23
04:29 10:06
WBC 8.1
Hgb 15.1
Hct 45.9
Plt Count 212
HCO3 22.6
Sodium 138
Potassium 4.5
Chloride 107
Carbon Dioxide 22
BUN 58 H
Creatinine 1.3 H
Glucose 174 H
Calcium 8.7
Vital Signs:
Vital Signs
Temp Pulse Resp BP Pulse Ox
99.8 F 105 15 156/98 93
09/27/23 15:42 09/27/23 16:20 09/27/23 16:20 09/27/23 16:00 09/27/23 16:20
I&O
09/26/23 09/27/23 09/28/23
06:59 06:59 06:59
Intake Total 1545.4 / 1629.7 2473.4 / 2560.2 748.9 / 748.9
Output Total 2960 / 3085 3890 / 3890 2635 / 2635
Balance -1414.6 / -1455.3 -1416.6 / -1329.8 -1886.1 / -1886.1
[2023-09-27] MEDS: STERILE WATER FOR INJECTION 20 ML IV (17:16)
[2023-09-27] MEDS: LIPITOR 20 MG TUBE (17:16)
[2023-09-27] MEDS: ROCEPHIN 2000 MG IV (17:16)
[2023-09-27] MEDS: NOVOLOG FLEXPEN-LOW RESISTANCE 1 UNITS SC (17:18)
[2023-09-27 17:30] LABS: Glucose - Point of Care 158 mg/dl (70-99)
--- NOTE | 2023-09-27 20:00 | PTCARENOTE ---
rec`d pt at 1900 intubated and sedated. follows commands such as squeezing hands and nodding head. SR on monitor and PVCs. +1 edema. Rt double luman picc in place running with fent and prop. 18g L wrist and 22g L hand also in place and capped. #7.[address] on left side. 23@lip. vent settings... AC 16/500/40%/5 of peep. ronchorus lung sounds. restraints on pt. Rt nare dobhoff with TF running. Osmo 1.2 @50mL/hr with 25 flush. therm ziegler in place draining yellow urine. sacral foam on. Safe
environment maintained.
[2023-09-27] MEDS: DECADRON 6 MG IV (21:13)
[2023-09-28] VITALS (39 sets, daily range): BP systolic 88–180; BP diastolic 60–111; BMI 37.6
--- NOTE | 2023-09-28 | PTCARENOTE ---
pt reassessed. no changes in pt assessment. prop titrated. safe environment maintained.
[2023-09-28 00:03] LABS: Glucose - Point of Care 144 mg/dl (70-99)
[2023-09-28] MEDS: DIPRIVAN 100 IV (01:58)
[2023-09-28 04:09] LABS: Venous Blood Gas B.E. 3.3 mmol/L (-4 to +4); Venous Blood Gas HCO3 29.1 mmol/L (22-27); Venous Blood Gas O2 Sat % 86.5 %; Venous Blood Gas pCO2 47 mmHg (35-48); Venous Blood Gas pO2 53 mmHg (30-50)
[2023-09-28 04:10] LABS: Hematocrit 47.3 % (37.0-47.0); Hemoglobin 16.1 g/dL (12.0-16.0); Mean Corpuscular Hgb 30.5 pg (27.0-31.0); Mean Corpuscular Volume 89.6 fL (81.0-99.0); Mean Platelet Volume 11.8 fL (7.4-10.4); Platelet Count 226 10^3/uL (130-400); Red Blood Cell Count 5.28 10^6/uL (4.20-5.40); Red Cell Dist. Width 14.6 % (11.5-14.5); White Blood Cell Count 10.5 10^3/uL (4.8-10.8)
--- NOTE | 2023-09-28 04:28 | PTCARENOTE ---
pt reassessed. no changes in pt assessment. prop titrated.
[2023-09-28 04:34] LABS: Blood Urea Nitrogen 59 mg/dl (7-17); Calcium 8.8 mg/dl (8.4-10.2); Carbon Dioxide 27 mmol/L (22-30); Chloride 106 mmol/L (98-107); Estimated Creatinine Clearance 39 ml/min; Glucose 159 mg/dl (70-99); Potassium 4.7 mmol/L (3.5-5.1); Sodium 138 mmol/L (135-145); eGFR 41.31
[2023-09-28 04:39] LABS: Vancomycin Random 13.8 ug/ml
[2023-09-28] MEDS: NOVOLOG FLEXPEN-LOW RESISTANCE 1 UNITS SC (05:52)
[2023-09-28] MEDS: SYNTHROID 137 MCG TUBE (05:53)
[2023-09-28 06:02] LABS: Glucose - Point of Care 160 mg/dl (70-99)
[2023-09-28] MEDS: EFFEXOR 75 MG TUBE ×3 (07:40→21:08)
[2023-09-28] MEDS: HEPARIN 5000 UNITS SC ×3 (07:40→23:32)
[2023-09-28] MEDS: COREG 3.125 MG TUBE ×2 (07:40→20:15)
[2023-09-28] MEDS: LOW STRENGTH ASPIRIN 81 MG TUBE (07:40)
[2023-09-28] MEDS: MIRALAX 17 GRAMS TUBE (07:40)
[2023-09-28] MEDS: PROTONIX IV 40 MG IV (07:41)
[2023-09-28] MEDS: NSS (PRESERVATIVE FREE) 10 ML IV (07:41)
--- NOTE | 2023-09-28 07:54 | W.PN.INTV ---
Today's Communication / Plan
Recommendations
Extubate
Atbs
Diuretics
Assessment
-
Assessment: 83-year-old female former tobacco smoker with a PMHx of hypothyroidism, depression and hypertension/hyperlipidemia who presents with difficulty breathing which worsened throughout the day. She was very short of breath and respiratory
distress and hypoxic which did not improve with BiPAP and she was intubated in the ER. Imaging showed bilateral pneumonia concerning for infection +/- pulmonary edema. BP was elevated requiring nitroglycerin drip. She was also diuresed.
Antibiotics were given in the ER as well as steroids and nebulized bronchodilators. She was transferred to the ICU for further care with cathode ray tube assembler/pulmonary services consulted for additional management/recommendations.
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
Impression:
#Acute hypoxemic respiratory failure with hypoxemia and hypercapnia due to bilateral pneumonia +/- acute pulmonary edema in setting of HTN crisis; DDx also includes ADHF
#Sepsis without shock due to bilateral pneumonia (suspect COVID-19 with bacterial superinfection)
#Hypertensive crisis briefly on nitro gtt --> BP now improved
#On mechanical ventilation, intubated at ER
#COVID-19 pneumonia
#Acute kidney injury (baseline Cr approximately 1�1 0.2)
#NSTEMI: Elevated troponin - likely due to demand ischemia with type II AZ - troponin peaked at 0.723 on 09/23/2023
#Lactic acidosis
#Subclinical hypothyroidism
Plan:
- Continue mechanical ventilation with daily SAT/SBT if clinically appropriate
Current settings: ACV 16-500-5-0.4 (POx 94%)
- Titrate tidal volume, flow and PEEP to maintain plateau pressure <30, and optimize driving pressure to keep between 15�20
- Titrate FiO2 and PEEP to maintain SpO2 >90-94%
- Sedate with goal RASS -1 to -2
Propofol/fentanyl gtt, transitioned to dexmedetomidine gtt 09-27
Passed SBT 09-26, did one hour of weaning trial, however, [id number], ^RSBI, POx low 90s, placed back on ACV
09-27 AM, SBT satisfactory, weaned for about 2 hrs, resp fatigue, agitation, tachycardia, started on PSV 15/5 with good tolerance, continue PSV as tolerated, rest on ACV as needed and o/n
Progressing well on weaning trial, ready for extubation 09-28, d/w daughter at bedside
prn BPAP ordered
CXR 09-24 showed significant improvement bilateral pulm edema, suspected R basilar infiltrate and new small R>L pleural effusions
CXR 09-25 post RUE PICC showed recurrence of pulmonary edema pattern at L hilar, RUL, RLL areas
CXR 09-28: resolving pulm edema
Continue decadron (D6/10 on 09-28) and remdesivir (completed on 09-26) for treatment of COVID pneumonia
On empiric atbs cefepime (adjusted for renal function)/vancomycin/(azithromycin)
(Elevated QTc, d/c azithro 09-25)
Trach secs: E coli, hawkins-S x I to cefazolin and R to ampicillin and amp/sulb
Cefepime changed to ceftriaxone high dose 09-27, continue through 10-02
MRSA susceptible to tetracycline, will use doxycycline 100 bid per NGT
Will continue to complete 10 d regimen through 10-02
MRSA screening positive
Blood cxs so far negative from 09-22
Flu, RSV, Leg/strep UAg negative
-Trending troponin as it peaked at 0.723 on 09-23 and then decreased to 0.411 on 09-24
On outpatient furosemide 20 mg qd
Dose furosemide 20 mg IV x1 on 09-25, good diuresis obtained, -1kg in 24 hrs with 3.5L diuresis
Redose furosemide 20 mg IV 09-26 and 09-27, now continue daily (she is on outpatient 20 mg po qd)
Cardiology following
TTE 09-25 confirms new onset LVEF 30-35% with global hypokinesis, now MR mild to mod from previously mild
Continue to trend UOP, sCr --> keep net negative as tolerated
JUAN, non oliguric, responding to diuretics, Cr improving
Hypothyroidism: continue L-thyroxine
Enteral feedings started 09-25: osmolite, tolerating well
H/o anxiety, continue venlafaxine
- Maintain MAP >65
- Replete K>4, Mg>2, PO4>3
- Maintain euglycemia with goal BG 140�180
- DVT prophylaxis: enoxaparin, transitioned to sc hep 09-25
GI proph: IV PPI
DNR code status
D/w MDT
Critical care time: 35 min
Data:
CXR 09-24-2023: Previously noted parenchymal disease process, which could have represented pneumonia or pulmonary edema,has improved. Interval development and/or progression of small to moderate bilateral pleural effusions.
CXR 09-22-2023:
Status post intubation. No pneumothorax.
Stable moderate bilateral pneumonia.
Subjective Dataa
Subjective Data
Date of Service:
Date of Service: September 28, 2023
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
Subjective:
No major events overnight
Continues on diuretics
Resume SBT and weaning trial this morning
Following commands
Review of Systems
General: Other (intubated, able to follow simple commands)
Objective Data
Data Reviewed
Vital Signs / I&O / Oxygen:
Vital Signs
Temp Pulse Resp BP Pulse Ox
99.6 F 81 16 163/103 92
09/27/23 19:57 09/28/23 06:20 09/28/23 06:20 09/28/23 06:00 09/28/23 06:20
Intake and Output
09/27/23 09/28/23 09/29/23
06:59 06:59 06:59
Intake Total 2473.4 / 2560.2 9.0 / 2058.0
Output Total 3890 / 3890 3620 / 3620
Balance -1416.6 / -1329.8 -1561.0 / -1561.0
SaO2 [CPAP] 40
SaO2 [A/C] 94
SaO2 92
Physical Exam
General: Comfortable
HEENT: Normocephalic, Anicteric, Moist Mucous Membranes, Other (ETT in place) and Other (DHT)
Cardiovascular: S1-S2, Regular Rhythm, Murmur (n) and Peripheral Edema (mild)
Respiratory: Wheeze (Negative), Crackles (Negative), Rhonchi (bilateral), Stridor, ET Tube and Other (NGT)
GI: Soft, Non Distended and Non Tender
Neurology: Awake, Oriented, No Motor Deficits and Other (follows simple commands)
Skin: Warm and Dry
Labs/Micro/Reports
Lab Data
09/28/23 03:48
09/28/23 03:48
Laboratory Results
09/27/23
10:06
pH 7.43
pCO2 34
pO2 86
HCO3 22.6
O2 Delivery Level
Microbiology
09/23/23 16:01 Endotracheal Respiratory Culture - Preliminary
Escherichia coli
Staphylococcus aureus
09/23/23 16:01 Endotracheal Gram Stain - Preliminary
09/22/23 21:20 Blood/Venous Blood Culture - Final
No Growth - Final Report
09/22/23 21:20 Blood/Venous Blood Culture - Final
No Growth - Final Report
--- NOTE | 2023-09-28 08:00 | PTCARENOTE ---
rec`d pt at 0700 intubated and sedated. pupils 4mm. follows commands such as squeezing hands. SR to ST on monitor. +1 edema. HR in 120 with sedation off for SAT. Rt double luman picc in place running with fent and prop on hold. 18g L wrist and 22g
L hand also in place and capped. #7.[address] on center. 23@lip. vent settings. AC 16/500/50%/5 of peep. Awaiting SBT. restraints on pt for protective intervention. Rt nare dobhoff with TF Osmo 1.2 @45mL/hr with 25 flush-currently on hold for
SBT. therm ziegler in place draining yellow urine. sacral foam on. Safe environment maintained.
--- NOTE | 2023-09-28 08:51 | PHA.VAN.FU ---
Vancomycin Assessment / Plan
- Assessment
Renal Function: Stable
WBC's are: WNL
In the past 24 hrs, patient has been: Afebrile
Concomitant Antimicrobials: ceftriaxone
- Assessment - Therapeutic Drug Monitoring
Random Level: 13.8 - drawn ~23H after previous level of 19.6
Calculated ke: 0.015
Calculated half life (H): 46 H
- Dosing Plan
Dosing by Level: Re-dose today (Vanc 1000mg)
- Monitoring Plan
Random Level: Sat 09/30 0600 (based on half-life calculation)
- Follow Up
Pharmacy will continue to follow.
Vancomycin Follow UP
- -
Patient Age: 83
Patient Sex: Female
Vancomycin Day #: 5
Indication: Pulmonary/Respiratory
Requesting Provider: Tiago
Pertinent Antimicrobial Allergies:
NKDA
Height / Weight:
Height 5 ft 4 in
Actual Weight 99.2 kg
IBW in k.7
Pertinent Past Medical History: BMI ~39
- Vital Signs / Lab Results
Temp Pulse Resp BP Pulse Ox
99.1 F 97 12 163/103 98
09/28/23 07:30 09/28/23 08:24 09/28/23 08:24 09/28/23 06:00 09/28/23 08:33
Lab Results - Hematology
09/26/23 09/27/23 09/28/23
01:37 04:29 03:48
WBC 12.7 H 8.1 10.5
Lab Results - Chemistry
09/26/23 09/27/23 09/28/23
01:37 04:29 03:48
BUN 55 H 58 H 59 H
Creatinine 1.4 H 1.3 H 1.3 H
Estimated Creat Clear 37 39 39
Microbiology Results
09/23/23 16:01 Respiratory Culture - Final
Endotracheal Escherichia coli
Staph aureus MRSA
Gram Stain - Final
09/22/23 21:20 Blood Culture - Final
Blood/Venous No Growth - Final Report
09/22/23 21:20 Blood Culture - Final
Blood/Venous No Growth - Final Report
Therapeutic Drug Monitoring
Random Vancomycin 13.8 ug/ml 09/28/23 03:48
--- NOTE | 2023-09-28 08:57 | W.PN.CARDCBS ---
Today's Communication / Plan
-
Continue gentle IV diuresis in an attempt to improve respiratory status
Eventual GDMT and ischemic evaluation for newly identified HFrEF pending her clinical course
Impression / Plan
-
Impression:
Acute respiratory failure requiring intubation
COVID-pneumonia
Acute HFrEF, EF now 30-35% had been normal February 2023
Hypotension requiring pressors�resolved
Acute on chronic renal failure.
Hypothyroidism
Non-ST segment elevation myocardial infarction
Echo February 2023, EF 55 to 60% with mild LVH, mild MR, mild aortic stenosis
Echo 09/25/2023: EF 30-35%, global hypokinesis, mild to moderate MR, mild TR, pulmonary artery systolic pressure is 36 mmHg, pleural effusion seen
Plan:
She remains critically ill. Continues on ventilator and intubated.
Cont gentle IV Lasix with 20mg IV daily, has been diuresing, creatinine improving
As noted she has dramatic EKG changes suggesting anterolateral ischemia with a peak troponin of 0.7
Echocardiogram with ejection fraction decreased at 30 to 35% with global hypokinesis
Consider eventual ischemic evaluation pending her clinical course
Continue aspirin/statin/BB
Given JUAN, avoid JUAN PABLO/ARB
Management of ventilator, COVID, etc. per hospitalist and steward/stewardess deck.
We will continue to follow.
Progress Note - Metal Mixer
Subjective
Date of Service: September 28, 2023
NAOE. Remains intubated and sedated in MICU.
Objective
Labs:
09/28/23 03:48
09/28/23 03:48
Labs
Hgb 16.1 g/dL (12.0-16.0) H 09/28/23 03:48
Hct 47.3 % (37.0-47.0) H 09/28/23 03:48
Plt Count 226 10^3/uL (130-400) 09/28/23 03:48
PT 13.4 Sec (11.4-14.6) 09/22/23 22:10
INR 1.00 09/22/23 22:10
APTT 23.6 Sec (23.4-35.0) 09/22/23 22:10
Sodium 138 mmol/L (135-145) 09/28/23 03:48
Potassium 4.7 mmol/L (3.5-5.1) 09/28/23 03:48
BUN 59 mg/dl (7-17) H 09/28/23 03:48
Creatinine 1.3 mg/dL (0.6-1.0) H 09/28/23 03:48
Glucose 159 mg/dl (70-99) H 09/28/23 03:48
Vital Signs and I&O:
Vital Signs
Temp Pulse Resp BP Pulse Ox
99.1 F 97 12 163/103 98
09/28/23 07:30 09/28/23 08:24 09/28/23 08:24 09/28/23 06:00 09/28/23 08:33
Vital Signs
Temp Pulse Resp BP Pulse Ox
99.1 F 97 12 163/103 98
09/28/23 07:30 09/28/23 08:24 09/28/23 08:24 09/28/23 06:00 09/28/23 08:33
Intake & Output
09/26/23 09/27/23 09/28/23 09/29/23
06:59 06:59 06:59 06:59
Intake Total 1545.4 / 1629.7 2473.4 / 2560.2 2059.0 / 2150.8 305.8 / 305.8
Output Total 2960 / 3085 3890 / 3890 3620 / 3620 40 / 40
Balance -1414.6 / -1455.3 -1416.6 / -1329.8 -1561.0 / -1469.2 265.8 / 265.8
Physical Exam
Physical Exam
Gen: NAD
HEENT: NC/AT, sclera anicteric
Neck: No JVD
CV: RRR, NL s1/s2, no M/R/G
Lungs: Mechanically ventilated
Abd: S/ND
Ext: No LE edema
Skin: Warm, dry.
Neuro: Sedated
[2023-09-28] MEDS: LASIX 20 MG IV (10:35)
[2023-09-28 10:59] LABS: HCO3 25.9 mmol/L (21-28); O2 Saturation % 99.3 % (94-98); PCO2 31 mmHg (32-35); PO2 95 mmHg (83-108); pH 7.53 (7.35-7.45)
[2023-09-28] MEDS: NOVOLOG FLEXPEN-LOW RESISTANCE SC ×3 (11:30→23:13)
[2023-09-28 11:50] LABS: Glucose - Point of Care 130 mg/dl (70-99)
--- NOTE | 2023-09-28 12:14 | PTCARENOTE ---
SBT for 2.5hr. ABG drawn. Pt extfubated as ordered to 6L NC without issue. SpO2 95%. Daughter at bedside. Dobhoff remains in place.
[2023-09-28] MEDS: VIBRAMYCIN 100 MG TUBE ×2 (12:49→20:17)
[2023-09-28] MEDS: APRESOLINE 5 MG IV ×2 (13:49→20:17)
--- NOTE | 2023-09-28 13:55 | W.PN.HOSP.TC ---
Today's Communication/Plan
-
Antibiotics
Lasix
Possible extubation today
Assessment / Plan
Assessment / Plan
Physical Exam
General: Intubated
HEENT: Normocephalic
Respiratory: Equal air entry bilaterally
Cardiac: S1/S2. tachycardia.
GI: Soft and Nontender
Musculoskeletal: No Edema
Skin: Warm and Dry
Neuro: Sedated
Psych: Calm

Echocardiogram 09/25/23 as per pockets and pieces necktie operator's report:
CONCLUSIONS
Normal left ventricular wall thickness. Normal left ventricular chamber size.
Moderately reduced left ventricular systolic function. Left ventricular
ejection fraction is 30-35%. Global hypokinesis.
Mild to moderate mitral regurgitation.
Mild tricuspid regurgitation. Estimated pulmonary artery pressure of 36
mmHgPleural effusion present.
Compared to the previous echo from February 2023, EF was 55-60% and is now reduced
and MR is worse.

A/P:� Patient is an 83y F with PMH significant for hypothyroidism and anxiety / depression who presented to the ED in respiratory distress 2/2 covid-19 with superimposed pneumonia; initial concern for heart failure.
Acute Hypoxemic Respiratory Failure
VDRF
�- s/p intubation on arrival
- likely multifactorial 2/2 covid and superimposed bacterial pneumonia
- vent management per Pulmonary
- daily SAT
�- Treat individual issues as outlined below.
Acute COVID-19 Pneumonia
Superimposed bacterial pneumonia
MRSA Positive
Sputum cultures growing E. coli and S. aureus
- Sputum cultures growing E. coli and MRSA
�- COVID positive
�- Patient is vaccinated x multiple doses according to assisted living paperwork.
- Continue Decadron
- Status post Remdesivir
- F/U sputum culture and blood cultures
- continue antibiotics: status post Vancomycin and Cefepime, now on Doxycycline and Ceftriaxone.
- appreciate pulmonary consult
Acute HFrEF - EF now 30-35% had been normal February 2023
Suspected Anterolateral Cardiac Ischemia
Hypertensive Emergency
- concern raised for heart failure but creatinine rising with diuresis - continue IV Lasix - diuretics as per cardiology
- was on nitro gtt on admit given SBP > 190
�- Update Echo (February 2023 with LVEF 55-60 and mild )
�- Cardiology evaluation appreciated: can do IV Fluids as per primary service but would watch volume status closely
- Echocardiogram on 09/25/23 - results are above - with worsened ejection fraction
- Aspirin started; continue
- Continue Atorvastatin
- Will need eventual ischemic evaluation - eventually when clinically stable/extubated and if agreeable would consider right and left heart catheterization
Lactic Acidosis
�- Suspect this is mediated on hypoxemia > hypovolemia given evidence of volume overload, etc.
�- Correct hypoxemia as noted above.
JUAN
- creatinine climbed to 1.9 on 09/24/23 with diuresis
- Continue Lasix IV 20 mg daily
- Avoid JUAN PABLO-I or ARB
- consider fluids back
Hypothyroidism
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
Anxiety / Depression
- resume home meds post extubation; on hold with sedation
DVT Prophylaxis:� Lovenox
Code Status:� Per Dr. Little: Reviewed with son in detail.� Patient had previously been DNR on 2020 admission and son would like to honor those wishes.
Family Discussions
I spoke to patient's family, in the presence of patient's nurse, outside of patient's room on 09/25/23. All questions and concerns were answered to satisfaction.
Anticipated Discharge: > 48 hours
Subjective/Interval History
-
Date of Service: September 28, 2023
Patient was seen and examined. She remained intubated. Nurse reported patient appeared to be doing better.
Objective Data
-
Labs:
Laboratory Results
09/28/23 09/28/23
03:48 10:50
WBC 10.5
Hgb 16.1 H
Hct 47.3 H
Plt Count 226
HCO3 25.9
Sodium 138
Potassium 4.7
Chloride 106
Carbon Dioxide 27
BUN 59 H
Creatinine 1.3 H
Glucose 159 H
Calcium 8.8
Vital Signs:
Vital Signs
Temp Pulse Resp BP Pulse Ox
99.5 F 97 19 171/97 94
09/28/23 11:30 09/28/23 13:00 09/28/23 13:00 09/28/23 13:00 09/28/23 13:00
I&O
09/27/23 09/28/23 09/29/23
06:59 06:59 06:59
Intake Total 2473.4 / 2560.2 2059.0 / 2150.8 331.1 / 331.1
Output Total 3890 / 3890 3620 / 3620 1115 / 1115
Balance -1416.6 / -1329.8 -1561.0 / -1469.2 -783.9 / -783.9
--- NOTE | 2023-09-28 13:58 | CM ---
CM following re: discharge planning.
Discussed in rounds, reviewed pt's chart. Pt extubated today to 6L NC of O2, continue supportive care.
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
D/C plan: Awaiting for PT, OT evaluations and recommendations to determine a level of care at discharge.
CM will follow with discharge plan updates as hospitalization progresses
[2023-09-28] MEDS: STERILE WATER FOR INJECTION 20 ML IV (16:53)
[2023-09-28] MEDS: ROCEPHIN 2000 MG IV (16:53)
[2023-09-28] MEDS: LIPITOR 20 MG TUBE (16:54)
[2023-09-28 17:15] LABS: Glucose - Point of Care 112 mg/dl (70-99)
--- NOTE | 2023-09-28 20:00 | PTCARENOTE ---
rec`d pt at 1900 AAOx3, pleasant. pt tends to ask the same question a few times but then grasps the answer. Pt was able to tell me her recent living history and about her life. follows commands. SR on monitor... hypertension but given PRN
hydralazine to cover. Rt D luman PICC in place. 18g L w in place. 6L NC satting at 95%. Rt sherin rubiobhoff in place running with TF...osmo 1.2 @ 50mL/hr w/ [address] in [address] draining yellow urine. Sacrum is blanchable red. q2H turns continued.
safe environment maintained. pt`s son at bedside. call freeman in reach.
[2023-09-28 23:20] LABS: Glucose - Point of Care 133 mg/dl (70-99)
[2023-09-29] VITALS (21 sets, daily range): BP systolic 107–147; BP diastolic 61–100; PULSE 94; O2SAT 94–97; BMI 37.3
--- NOTE | 2023-09-29 | PTCARENOTE ---
pt reassessed. no changes in pt`s assessment.
[2023-09-29] MEDS: MELATONIN 10 MG PO (00:20)
--- NOTE | 2023-09-29 04:00 | PTCARENOTE ---
pt reassessed. no changes in pt assessment.
[2023-09-29 04:29] LABS: Hematocrit 46.6 % (37.0-47.0); Hemoglobin 15.8 g/dL (12.0-16.0); Mean Corp Hgb Conc. 33.9 g/dL (33.0-37.0); Mean Corpuscular Hgb 29.7 pg (27.0-31.0); Mean Corpuscular Volume 87.6 fL (81.0-99.0); Mean Platelet Volume 12.3 fL (7.4-10.4); Platelet Count 237 10^3/uL (130-400); Red Blood Cell Count 5.32 10^6/uL (4.20-5.40); Red Cell Dist. Width 14.6 % (11.5-14.5); White Blood Cell Count 12.4 10^3/uL (4.8-10.8)
[2023-09-29 04:51] LABS: Blood Urea Nitrogen 71 mg/dl (7-17); Carbon Dioxide 28 mmol/L (22-30); Chloride 102 mmol/L (98-107); Estimated Creatinine Clearance 39 ml/min; Glucose 134 mg/dl (70-99); Potassium 3.7 mmol/L (3.5-5.1); Sodium 140 mmol/L (135-145); Triglycerides 185 mg/dl (10-149); eGFR 41.31
[2023-09-29] MEDS: SYNTHROID 137 MCG TUBE (05:52)
[2023-09-29] MEDS: NOVOLOG FLEXPEN-LOW RESISTANCE SC (05:54)
[2023-09-29 06:04] LABS: Glucose - Point of Care 126 mg/dl (70-99)
[2023-09-29] MEDS: NSS (PRESERVATIVE FREE) 10 ML IV (08:00)
[2023-09-29] MEDS: LASIX 20 MG IV (08:00)
[2023-09-29] MEDS: PROTONIX IV 40 MG IV (08:01)
[2023-09-29] MEDS: HEPARIN 5000 UNITS SC ×2 (08:02→15:44)
[2023-09-29] MEDS: LOW STRENGTH ASPIRIN 81 MG TUBE (08:03)
[2023-09-29] MEDS: MIRALAX TUBE (08:03)
[2023-09-29] MEDS: EFFEXOR 75 MG TUBE (08:03)
[2023-09-29] MEDS: COREG 3.125 MG TUBE (08:03)
[2023-09-29] MEDS: VIBRAMYCIN 100 MG TUBE (08:03)
--- NOTE | 2023-09-29 08:55 | W.PN.INTV ---
Today's Communication / Plan
Recommendations
O2
Atbs
Dexam
Diuretic
Speech
Telem
Assessment
-
Assessment: 83-year-old female former tobacco smoker with a PMHx of hypothyroidism, depression and hypertension/hyperlipidemia who presents with difficulty breathing which worsened throughout the day. She was very short of breath and respiratory
distress and hypoxic which did not improve with BiPAP and she was intubated in the ER. Imaging showed bilateral pneumonia concerning for infection +/- pulmonary edema. BP was elevated requiring nitroglycerin drip. She was also diuresed.
Antibiotics were given in the ER as well as steroids and nebulized bronchodilators. She was transferred to the ICU for further care with industrial editor/pulmonary services consulted for additional management/recommendations.
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
Impression:
#Acute hypoxemic respiratory failure with hypoxemia and hypercapnia due to bilateral pneumonia +/- acute pulmonary edema in setting of HTN crisis; DDx also includes ADHF
#Sepsis without shock due to bilateral pneumonia (suspect COVID-19 with bacterial superinfection)
#Hypertensive crisis briefly on nitro gtt --> BP now improved
#On mechanical ventilation, intubated at ER
#COVID-19 pneumonia
#Acute kidney injury (baseline Cr approximately 1�1 0.2)
#NSTEMI: Elevated troponin - likely due to demand ischemia with type II LA - troponin peaked at 0.723 on 09/23/2023
#Lactic acidosis
#Subclinical hypothyroidism
Plan:
Intubated at ER 09-23
Maintained on ACV with no major issues, extubated 09-28
Doing well on O2 NC 6L, POx 96%
Home O2 evaluation PTD
prn BPAP ordered: did not require
CXR 09-24 showed significant improvement bilateral pulm edema, suspected R basilar infiltrate and new small R>L pleural effusions
CXR 09-25 post RUE PICC showed recurrence of pulmonary edema pattern at L hilar, RUL, RLL areas
CXR 09-28: resolving pulm edema
Continue decadron (D6/10 on 09-28) and remdesivir (completed on 09-26) for treatment of COVID pneumonia
On empiric atbs cefepime (adjusted for renal function)/vancomycin/(azithromycin)
(Elevated QTc, d/c azithro 09-25)
Trach secs: E coli, hawkins-S x I to cefazolin and R to ampicillin and amp/sulb
Cefepime changed to ceftriaxone high dose 09-27, continue through 10-02
MRSA susceptible to tetracycline, will use doxycycline 100 bid per NGT
Will continue to complete 10 d regimen through 10-02
MRSA screening positive
Blood cxs so far negative from 09-22
Flu, RSV, Leg/strep UAg negative
-Trending troponin as it peaked at 0.723 on 09-23 and then decreased to 0.411 on 09-24
On outpatient furosemide 20 mg qd
Dose furosemide 20 mg IV x1 on 09-25, good diuresis obtained, -1kg in 24 hrs with 3.5L diuresis
Redose furosemide 20 mg IV 09-26 and 09-27, now continue daily (she is on outpatient 20 mg po qd)
Cardiology following
TTE 09-25 confirms new onset LVEF 30-35% with global hypokinesis, now MR mild to mod from previously mild
Continue to trend UOP, sCr --> keep net negative as tolerated
Continue low dose carvedilol
prn IV hydralazine for SBP>140
JUAN, non oliguric, responding to diuretics, Cr improving
Hypothyroidism: continue L-thyroxine
Enteral feedings started 09-25: osmolite, tolerating well
Speech evaluation 09-29 pending
H/o anxiety, continue venlafaxine, resumed aripiprazole
DVT prophylaxis: enoxaparin, transitioned to sc hep 09-25
GI proph: IV PPI, d/c 09-29
DNR code status
D/w MDT
[facility] pul to follow
Data:
CXR 09-24-2023: Previously noted parenchymal disease process, which could have represented pneumonia or pulmonary edema,has improved. Interval development and/or progression of small to moderate bilateral pleural effusions.
CXR 09-22-2023:
Status post intubation. No pneumothorax.
Stable moderate bilateral pneumonia.
Subjective Dataa
Subjective Data
Date of Service:
Date of Service: September 29, 2023
Chief Complaint: Manager Maintenance Follow Up
Subjective:
No major events reported since after extubation yesterday
Transient hypotension required 2 doses of IV hydralazine
Tolerating enteral feedings
A speech therapy evaluation pending for today
Less nauseous than yesterday, cooperative, redirectable
Review of Systems
General: Fever (n), Sweats (n), Chills (n) and Satisfactory Appetite (n)
HEENT: Epistaxis
Cardiopulmonary: Dyspnea, Cough, Sputum Production, Wheezing, Chest Pain and Lower Extremity Pain (n)
GI: Abdominal Pain (n), Nausea (n) and Vomiting (n)
Neuro: Weakness
Objective Data
Data Reviewed
Vital Signs / I&O / Oxygen:
Vital Signs
Temp Pulse Resp BP Pulse Ox
99.9 F 94 16 117/73 95
09/29/23 03:50 09/29/23 04:40 09/29/23 04:40 09/29/23 04:01 09/29/23 04:40
Intake and Output
09/28/23 09/29/23 09/30/23
06:59 06:59 06:59
Intake Total 9.0 / 2150.8 1081.1 / 1081.1
Output Total 3620 / 3620 2069 / 2069 125 / 125
Balance -1561.0 / -1469.2 -988.9 / -988.9 -125 / -125
SaO2 [CPAP] 40
SaO2 [A/C] 92
SaO2 95
Nasal Cannula flow liters per 6
minute
Physical Exam
General: Comfortable
HEENT: Normocephalic, Anicteric, Moist Mucous Membranes, Other (ETT in place) and Other (DHT)
Cardiovascular: S1-S2, Regular Rhythm, Murmur (n) and Peripheral Edema (mild)
Respiratory: Wheeze (Negative), Crackles (Negative), Rhonchi (bilateral), Stridor and Other (NGT)
GI: Soft, Non Distended and Non Tender
Neurology: Awake, Oriented, No Motor Deficits and Other (follows simple commands)
Skin: Warm and Dry
Labs/Micro/Reports
Lab Data
09/29/23 04:13
09/29/23 04:13
Laboratory Results
09/28/23
10:50
pH 7.53 H
pCO2 31 L
pO2 95
HCO3 25.9
O2 Delivery Level
Microbiology
09/23/23 16:01 Endotracheal Respiratory Culture - Final
Escherichia coli
Staph aureus MRSA
09/23/23 16:01 Endotracheal Gram Stain - Final
09/22/23 21:20 Blood/Venous Blood Culture - Final
No Growth - Final Report
09/22/23 21:20 Blood/Venous Blood Culture - Final
No Growth - Final Report
--- NOTE | 2023-09-29 09:21 | PTCARENOTE ---
Addendum entered by Lilo Allison RN 10/05/23 14:24:
Rec'd at 0700
Original Note:
rec`d pt at 1900 AAOx3, pleasant. pt tends to ask the same question a few times but then grasps the answer. Calls with freeman and states 'cant breath' but lungs clear, SpO2 97% and RR 13. Possibly anxiety or fear when she descovers she is alone.
follows commands. SR on monitor... hypertension but given PRN hydralazine to cover. Rt D luman PICC in place. 18g L w in place. 6L NC satting at 97%. Rt malue dobhoff in place running with TF. osmo 1.2 @ 50mL/hr w/ [address] in [address] draining
yellow urine. Sacrum is blanchable red. q2H turns continued. safe environment maintained. call freeman in reach.
--- NOTE | 2023-09-29 10:54 | W.PN.HOSP.TC ---
Today's Communication/Plan
-
Doing better now able to interact
Regular Diet
Assessment / Plan
Assessment / Plan
Physical Exam
General: Not in acute distress
HEENT: Normocephalic
Respiratory: Equal air entry bilaterally. On midflow nasal cannula oxygen.
Cardiac: S1/S2. RRR
GI: Soft and Nontender
Musculoskeletal: No Edema
Skin: Warm and Dry
Neuro: Sedated
Psych: Calm

Echocardiogram 09/25/23 as per public health training assistant's report:
CONCLUSIONS
Normal left ventricular wall thickness. Normal left ventricular chamber size.
Moderately reduced left ventricular systolic function. Left ventricular
ejection fraction is 30-35%. Global hypokinesis.
Mild to moderate mitral regurgitation.
Mild tricuspid regurgitation. Estimated pulmonary artery pressure of 36
mmHgPleural effusion present.
Compared to the previous echo from February 2023, EF was 55-60% and is now reduced
and MR is worse.

A/P:� Patient is an 83y F with PMH significant for hypothyroidism and anxiety / depression who presented to the ED in respiratory distress 2/2 covid-19 with superimposed pneumonia; initial concern for heart failure.
Acute Hypoxemic Respiratory Failure
VDRF
�- s/p intubation on arrival
- likely multifactorial 2/2 covid and superimposed bacterial pneumonia
- vent management per Pulmonary
- daily SAT
�- Treat individual issues as outlined below.
Acute COVID-19 Pneumonia
Superimposed bacterial pneumonia
MRSA Positive
Sputum cultures growing E. coli and S. aureus
- Sputum cultures growing E. coli and MRSA
�- COVID positive
�- Patient is vaccinated x multiple doses according to assisted living paperwork.
- Continue Decadron
- Status post Remdesivir
- F/U sputum culture and blood cultures
- continue antibiotics: status post Vancomycin and Cefepime, now on Doxycycline and Ceftriaxone; continue
- appreciate pulmonary consult
- ID consulted, recommendations appreciated
Acute HFrEF - EF now 30-35% had been normal February 2023
Suspected Anterolateral Cardiac Ischemia
Hypertensive Emergency
- concern raised for heart failure but creatinine rising with diuresis - continue IV Lasix - diuretics as per cardiology
- was on nitro gtt on admit given SBP > 190
�- Update Echo (February 2023 with LVEF 55-60 and mild )
�- Cardiology evaluation appreciated: can do IV Fluids as per primary service but would watch volume status closely
- Echocardiogram on 09/25/23 - results are above - with worsened ejection fraction
- Aspirin started; continue
- Continue Atorvastatin
- Will need eventual ischemic evaluation - eventually when clinically stable/extubated and if agreeable would consider right and left heart catheterization
Lactic Acidosis
�- Suspect this is mediated on hypoxemia > hypovolemia given evidence of volume overload, etc.
�- Correct hypoxemia as noted above.
JUAN
- creatinine climbed to 1.9 on 09/24/23 with diuresis
- Continue Lasix IV 20 mg daily
- Avoid JUAN PABLO-I or ARB
- consider fluids back
Hypothyroidism
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
Anxiety / Depression
- resume home meds post extubation; on hold with sedation
DVT Prophylaxis:� Lovenox
Diet: As of September 29, 2023: Regular Solids with Thin Liquids (after being on tube feeds prior to that)
Code Status:� Per Dr. Little: Reviewed with son in detail.� Patient had previously been DNR on 2020 admission and son would like to honor those wishes.
Family Discussions
I spoke to patient's family, in the presence of patient's nurse, outside of patient's room on 09/25/23. All questions and concerns were answered to satisfaction.
I spoke to patient's daughter, in the presence of patient's nurse, outside of patient's room on 09/29/23. All questions and concerns were answered to satisfaction.
Anticipated Discharge: > 48 hours
Subjective/Interval History
-
Date of Service: September 29, 2023
Patient was seen and examined. She was able to interact and answer questions today, now no longer on the mechanical ventilator.
Objective Data
-
Labs:
Laboratory Results
09/29/23
04:13
WBC 12.4 H
Hgb 15.8
Hct 46.6
Plt Count 237
Sodium 140
Potassium 3.7
Chloride 102
Carbon Dioxide 28
BUN 71 H
Creatinine 1.3 H
Glucose 134 H
Calcium 9.0
Vital Signs:
Vital Signs
Temp Pulse Resp BP Pulse Ox
99.6 F 85 14 124/76 97
09/29/23 08:00 09/29/23 09:00 09/29/23 09:00 09/29/23 09:00 09/29/23 09:16
I&O
09/28/23 09/29/23 09/30/23
06:59 06:59 06:59
Intake Total 9.0 / 2150.8 1081.1 / 1081.1
Output Total 3620 / 3620 2069 / 2069 125 / 125
Balance -1561.0 / -1469.2 -988.9 / -988.9 -125 / -125
--- NOTE | 2023-09-29 11:06 | PTOTSP ---
Speech Therapy Initial Evaluation
Mild/functional oral dysphagia. Pharyngeal swallow appears intact with bedside PO trials.
Recommend advance diet to regular solids/thin liquids. Remove DHT if intakes are adequate. Maintain aspiration precautions and meal set up assist as needed. Small bites and slow rate. Meds oral with sips of water. PHARMACOEPIDEMIOLOGIST to follow up 1-2x monitor diet
tolerance, strategy training and education as indicated.
[2023-09-29] MEDS: KCL ELIXIR 20 MEQ TUBE (11:28)
--- NOTE | 2023-09-29 11:45 | PTCARENOTE ---
NGT and ziegler removed without issue.
--- NOTE | 2023-09-29 12:26 | CON.ID ---
Consultation
-
Date/Time Consultation Requested: September 29, 2023 0859
Date/Time Consultation Performed: September 29, 2023 1230
Requesting Provider: Dr. Venkatesh Cook
Performing Provider: Dr. Eileen Staley
Reason for Consultation: pneumonia
Chief Complaint / Past History
Chief Complaint
Shortness of breath
History of Present Illness
She is an 83-year-old female with hypothyroidism, with obesity BMI 37, who presented to the ER on September 22 complaining of difficulty breathing. In the ER her O2 sat was in the 60s. She was intubated COVID-positive. Blood pressure was noted to
be very elevated 195/123. She was in JUAN, CHF. TTE EF 30-35%. COVID was treated with remdesivir x 5 days and steroid. Sputum culture grew E. coli and MRSA. She was on cefepime then transition to ceftriaxone currently day 7, had 5 days of
vancomycin then transition to doxycycline. Patient has been extubated since yesterday. Today she reports still coughing with brownish sputum. She passed swallow eval. No abdominal pain. Had loose stools. She is not up-to-date with the most
recent COVID-vaccine.
Past History
Additional Past Medical History:
Hypothyroidism
HTN
Dyslipidemia
Obesity BMI 37
Anxiety/depression
Bilateral total hip replacement
Bilateral wrist ORIF
Allergy History:
No Known Allergies Allergy (Verified 01/19/17 11:29)
Medications Reviewed: Yes
Current Antibiotics:
Vancomycin (09/22 to 09/28)
ceftriaxone day 7 abx
doxycycline day 1
Social History
Tobacco: Former Smoker
Alcohol: None
Living: Alone ([facility])
Family History
Family History: Not Pertinent
Review of Systems
Review of Systems
General: Negative Chills
HEENT: Negative Sinus Problems, Headache or Pharyngitis
Cardiovascular: Negative Chest Pain or Edema
Respiratory: Cough and Sputum Production
Gasteroenterology: Negative Nausea or Vomiting
Genital / Urological: Negative Dysuria or Flank Pain
Endocrine: Weakness
Skin / Hair / Nails: Negative Rash
Neurological: Negative Headache or Dizziness
All systems: All other systems were reviewed and were negative
Vital Signs
Temp Pulse Resp BP Pulse Ox
100.6 F H 86 16 107/72 92
09/29/23 11:30 09/29/23 12:00 09/29/23 12:00 09/29/23 12:00 09/29/23 12:00
Physical Exam
Physical Exam
Constitutional: No Acute Distress
Eyes: No Conjunctival Hemorrhage and Sclera Anicteric
Cardiovascular: Regular Rate and S1/S2
Pulmonary: Rales (bases)
Gastrointestinal: Soft, Non Tender, Non Distended and Normal Bowel Sounds
Genito-Urinary: Negative CVA Tenderness
Extremities: Negative Edema
Neurological: AO x 3
Lab / Diagnostic Study Results
09/29/23 04:13
09/29/23 04:13
Abs Immat Gran (auto) 0.1 10^3/uL (0-0.05) H 09/25/23 04:32
Absolute Neuts (auto) 12.3 10^3/uL (1.4-6.5) H 09/25/23 04:32
Absolute Lymphs (auto) 0.5 10^3/uL (1.2-3.4) L 09/25/23 04:32
Absolute Monos (auto) 0.2 10^3/uL (0.1-0.6) 09/25/23 04:32
Absolute Basos (auto) 0.0 10^3/uL (0-0.2) 09/25/23 04:32
Immature Gran % 0.5 % (0-0.5) 09/25/23 04:32
Neutrophils % 94.2 % (42.2-75.2) H 09/25/23 04:32
Lymphocytes % 3.5 % (20.5-51.1) L 09/25/23 04:32
Monocytes % 1.7 % (1.7-9.3) 09/25/23 04:32
Eosinophils % 0.0 % (0-6) 09/25/23 04:32
Basophils % 0.1 % (0-2) 09/25/23 04:32
PT 13.4 Sec (11.4-14.6) 09/22/23 22:10
INR 1.00 09/22/23 22:10
Lactic Acid 2.2 mmol/L (0.7-2.0) H 09/23/23 01:13
Procalcitonin 52.50 ng/ml (0.0-0.25) H* 09/24/23 04:34
Microbiology Results
Micro:
09/23/23 16:01 Respiratory Culture - Final
Endotracheal Escherichia coli
Staph aureus MRSA
Gram Stain - Final
09/22/23 21:20 Blood Culture - Final
Blood/Venous No Growth - Final Report
09/22/23 21:20 Blood Culture - Final
Blood/Venous No Growth - Final Report
09/23/23 05:11 MRSA Screen - Final
Nose Staph aureus MRSA
09/23/23 12:50 Legionella Urinary Antigen - Final
Urine Negative for Legionella pneumophila Serogroup 1 antigen.
A negative result does not rule out the possiblity of
Legionella infection due to other serogroups or species of
Legionella. Clinical correlation is recommended.
Streptococcus pneumoniae Antigen (M - Final
Negative for Streptococcus pneumoniae antigen.
A negative result does not exclude infection with
Streptococcus pneumoniae. Clinical correlation is
recommended.
09/22/23 22:14 Respiratory Syncytial Virus Culture - Final
Nasal Swab Negative for Respiratory Syncytial Virus.
A false negative result may be obtained with a specimen
collected early in the acute phase. If symptoms persist, a
new specimen should be tested.
09/22/23 21:44 Influenza Types A & B (GISELLE) - Final
Nasal Swab Negative for Influenza A & B, NAAT
Negative results must be combined with clinical observations
and patient history.
Nucleic Acid Amplification test (NAAT)performed on the
[employer] NOW platform.
09/22/23 CXR: Findings suggesting moderate bilateral upper and lower lobe pneumonia. New.
09/28/23 CXR: Significantly improved bilateral pulmonary opacification which, in correlation with recent prior study most likely represents improved/resolving pulmonary edema.
Assessment / Plan
# s/p acute hypoxemic respiratory failure VDRF (multifactorial), extubated 09/28/23
# Severe COVID
- not up to date with most recent vaccine
- Positive COVID 09/22
- s/p 5 days Remdesivir
- Remains on dexamethasone
- Continue isolation through 10/02/23
# Aspiration pneumonia
-09/23 Sputum cx: E. coli, MRSA
-Currently on ceftriaxone (day 7 of 10 abx) as per Pulm
- s/p IV Vancomycin x 5 days, de-escalated to doxycycline po till 10/02, as pr Pulm
Agree with current regimen.
- Aspiration precaution
# Fever 100.6 x 1 today
# Leukocytosis today.
- monitor temps/wbc for now.
-persists, hawkins-culture.
# HFrEF s/p diuresis
--- NOTE | 2023-09-29 13:09 | CM ---
CM following re: discharge planning.
Discussed in Rounds, reviewed pt's chart, met with pt. Per Rounds meeting, pt has been improving, NGT and Wallis removed and pt will be downgraded from ICU level of care.
.
PT and OT evaluations noted - SNF level of are recommended. CM discussed it with pt, pt expressed her agreement and pt preferred [facility]. A referral to [facility] made, spoke to liaison Leatha. Awaiting for determination.
IMM reviewed, placed on chart, pt has a copy.
D/C plan: [facility] for a short term rehab when pt is medically stable.
CM will follow with discharge plan updates as hospitalization progresses
--- NOTE | 2023-09-29 13:45 | W.PN.CARDCBS ---
Today's Communication / Plan
-
Continue IV Lasix
She has continued to improve and is extubated
Consider eventual ischemic evaluation versus empiric treatment for abnormal ECG, non-STEMI and reduced ejection fraction
Will reassess during her hospital course
Impression / Plan
-
Impression:
Acute respiratory failure requiring intubation, status post extubation 09/28/2023
COVID-pneumonia
Acute HFrEF, EF now 30-35% had been normal February 2023
Hypotension requiring pressors�resolved
Acute on chronic renal failure.
Hypothyroidism
Non-ST segment elevation myocardial infarction
Echo February 2023, EF 55 to 60% with mild LVH, mild MR, mild aortic stenosis
Echo 09/25/2023: EF 30-35%, global hypokinesis, mild to moderate MR, mild TR, pulmonary artery systolic pressure is 36 mmHg, pleural effusion seen
Plan:
She is a difficult examination
She was extubated on 09/28
Creatinine has remained relatively stable at 1.3
Continue IV Lasix for now
We could consider eventual ischemic evaluation given dramatic anterior lateral ischemia on ECG with peak troponin of 0.7 and ejection fraction of 30 to 35%
Will need to assess as she continues to improve
Empiric therapy with aspirin, statin, beta-galen is appropriate
Given JUAN, avoid JUAN PABLO/ARB but might reconsider if creatinine remains stable
Management of COVID, etc. per hospitalist and section beamer.
Progress Note - Information Technology Internship
Subjective
Date of Service: September 29, 2023
She is awake but possibly confused
Objective
Labs:
09/29/23 04:13
09/29/23 04:13
Labs
Hgb 15.8 g/dL (12.0-16.0) 09/29/23 04:13
Hct 46.6 % (37.0-47.0) 09/29/23 04:13
Plt Count 237 10^3/uL (130-400) 09/29/23 04:13
PT 13.4 Sec (11.4-14.6) 09/22/23 22:10
INR 1.00 09/22/23 22:10
APTT 23.6 Sec (23.4-35.0) 09/22/23 22:10
Sodium 140 mmol/L (135-145) 09/29/23 04:13
Potassium 3.7 mmol/L (3.5-5.1) 09/29/23 04:13
BUN 71 mg/dl (7-17) H 09/29/23 04:13
Creatinine 1.3 mg/dL (0.6-1.0) H 09/29/23 04:13
Glucose 134 mg/dl (70-99) H 09/29/23 04:13
Vital Signs and I&O:
Vital Signs
Temp Pulse Resp BP Pulse Ox
100.6 F H 86 16 107/72 92
09/29/23 11:30 09/29/23 12:00 09/29/23 12:00 09/29/23 12:00 09/29/23 12:00
Vital Signs
Temp Pulse Resp BP Pulse Ox
100.6 F H 86 16 107/72 92
09/29/23 11:30 09/29/23 12:00 09/29/23 12:00 09/29/23 12:00 09/29/23 12:00
Intake & Output
09/27/23 09/28/23 09/29/23 09/30/23
06:59 06:59 06:59 06:59
Intake Total 2473.4 / 2560.2 2059.0 / 2150.8 1081.1 / 1081.1 675 / 675
Output Total 3890 / 3890 3620 / 3620 2069 / 2069 450 / 450
Balance -1416.6 / -1329.8 -1561.0 / -1469.2 -988.9 / -988.9 225 / 225
Physical Exam
Physical Exam
General: Awake and? Confused
Neck: Supple, no JVD, HJR, carotids +2 B/L, no bruits bilaterally.
Heart: Non displaced PMI, RRR, no murmurs, No S3, S4, no rubs.
Lungs: Scattered rhonchi
Extremities: No clubbing, cyanosis or edema bilaterally.
Neuro: Awake and? Confused
[2023-09-29] MEDS: DECADRON 6 MG PO (14:00)
[2023-09-29] MEDS: EFFEXOR 75 MG PO ×2 (15:43→20:22)
[2023-09-29] MEDS: ROCEPHIN 2000 MG IV (18:00)
[2023-09-29] MEDS: LIPITOR 20 MG PO (18:00)
[2023-09-29] MEDS: STERILE WATER FOR INJECTION 20 ML IV (18:01)
[2023-09-29] MEDS: COREG 3.125 MG PO (20:22)
[2023-09-29] MEDS: VIBRAMYCIN 100 MG PO (20:22)
[2023-09-30] MEDS: HEPARIN 5000 UNITS SC ×3 (00:35→15:33)
[2023-09-30 03:25] VITALS: BP 150/94
[2023-09-30 03:51] LABS: Glucose - Point of Care 113 mg/dl (70-99)
[2023-09-30 04:29] VITALS: BMI 37.9
[2023-09-30] MEDS: APRESOLINE 5 MG IV (05:38)
[2023-09-30] MEDS: SYNTHROID 137 MCG PO (05:39)
[2023-09-30 06:58] LABS: Glucose - Point of Care 97 mg/dl (70-99)
[2023-09-30 07:38] VITALS: BP 131/72
--- NOTE | 2023-09-30 08:39 | W.PN.ID1 ---
Date of Service
Date of Service: September 30, 2023
Today's Communication
Continue ceftriaxone and doxycycline through 10/02/23.
ID will sign off.
Assessment / Plan
# s/p acute hypoxemic respiratory failure VDRF (multifactorial), extubated 09/28/23
# s/p Severe COVID
- not up to date with most recent vaccine
- Positive COVID 09/22
- s/p 5 days Remdesivir
- Remains on dexamethasone
- Continue isolation through 10/02/23
# Aspiration pneumonia
-09/23 Sputum cx: E. coli, MRSA
-Currently on ceftriaxone to complete 10 days through 10/02.
- s/p IV Vancomycin x 5 days, de-escalated to doxycycline po till 10/02
- Aspiration precaution
# Fever 100.6 x 1 resolved
# Leukocytosis yesterday. no labs drawn today.
# HFrEF s/p diuresis
#Additional Past Medical History:
Hypothyroidism
HTN
Dyslipidemia
Obesity BMI 37
Anxiety/depression
Bilateral total hip replacement
Bilateral wrist ORIF
Chief Complaint
-: Pneumonia
Subjective / Review of Systems
Cough better. Sputum now clearer.
Vital Signs / Physical Exam
Vital Signs
Vital Signs
Temp Pulse Resp BP Pulse Ox
97.8 F 93 16 131/72 99
09/30/23 07:38 09/30/23 07:38 09/30/23 07:38 09/30/23 07:38 09/30/23 07:38
Physical Exam
Constitutional: No Acute Distress and Comfortable
Cardiovascular: Regular Rate and S1/S2
Pulmonary: Coarse (bases)
Gastrointestinal: Non Tender, Non Distended and Normal Bowel Sounds
Neurological: AO x 3
Objective Data
Lab Data
Lab Results
09/29/23 04:13
09/29/23 04:13
PT 13.4 Sec (11.4-14.6) 09/22/23 22:10
INR 1.00 09/22/23 22:10
APTT 23.6 Sec (23.4-35.0) 09/22/23 22:10
Estimated Creat Clear 39 ml/min 09/29/23 04:13
Lactic Acid 2.2 mmol/L (0.7-2.0) H 09/23/23 01:13
Total Bilirubin 0.7 mg/dl (0.2-1.3) 09/23/23 05:11
Total Bilirubin Cancelled 09/23/23 05:11
AST 53 U/L (14-36) H 09/23/23 05:11
AST Cancelled 09/23/23 05:11
ALT 36 U/L (0-35) H 09/23/23 05:11
ALT Cancelled 09/23/23 05:11
Alkaline Phosphatase 103 U/L (38-126) 09/23/23 05:11
Alkaline Phosphatase Cancelled 09/23/23 05:11
Most recent labs reviewed.
Micro Results:
09/23/23 16:01 Respiratory Culture - Final
Endotracheal Escherichia coli
Staph aureus MRSA
Gram Stain - Final
09/22/23 21:20 Blood Culture - Final
Blood/Venous No Growth - Final Report
09/22/23 21:20 Blood Culture - Final
Blood/Venous No Growth - Final Report
09/23/23 05:11 MRSA Screen - Final
Nose Staph aureus MRSA
09/23/23 12:50 Legionella Urinary Antigen - Final
Urine Negative for Legionella pneumophila Serogroup 1 antigen.
A negative result does not rule out the possiblity of
Legionella infection due to other serogroups or species of
Legionella. Clinical correlation is recommended.
Streptococcus pneumoniae Antigen (M - Final
Negative for Streptococcus pneumoniae antigen.
A negative result does not exclude infection with
Streptococcus pneumoniae. Clinical correlation is
recommended.
09/22/23 22:14 Respiratory Syncytial Virus Culture - Final
Nasal Swab Negative for Respiratory Syncytial Virus.
A false negative result may be obtained with a specimen
collected early in the acute phase. If symptoms persist, a
new specimen should be tested.
09/22/23 21:44 Influenza Types A & B (GISELLE) - Final
Nasal Swab Negative for Influenza A & B, NAAT
Negative results must be combined with clinical observations
and patient history.
Nucleic Acid Amplification test (NAAT)performed on the
[employer] platform.
09/22/23 CXR: Findings suggesting moderate bilateral upper and lower lobe pneumonia. New.
09/28/23 CXR: Significantly improved bilateral pulmonary opacification which, in correlation with recent prior study most likely represents improved/resolving pulmonary edema.
[2023-09-30] MEDS: EFFEXOR 75 MG PO ×3 (08:40→20:58)
[2023-09-30] MEDS: ABILIFY 2 MG PO (08:40)
[2023-09-30] MEDS: VIBRAMYCIN 100 MG PO ×2 (08:40→20:58)
[2023-09-30] MEDS: COREG 3.125 MG PO ×2 (08:40→20:58)
[2023-09-30] MEDS: LASIX 20 MG IV ×2 (08:40→20:58)
[2023-09-30] MEDS: LOW STRENGTH ASPIRIN 81 MG PO (08:40)
[2023-09-30] MEDS: DECADRON 6 MG PO (08:41)
[2023-09-30 10:29] LABS: % Basophils 0.3 % (0-2); % Eosinophils 0.7 % (0-6); % Immature Granulocytes 2.8 % (0-0.5); % Lymphocytes 9.1 % (20.5-51.1); % Monocytes 7.8 % (1.7-9.3); % Neutrophils 79.3 % (42.2-75.2); Absolute Eosinophils 0.1 10^3/uL (0-0.7); Absolute Immature Granulocytes 0.3 10^3/uL (0-0.05); Absolute Lymphocytes 1.1 10^3/uL (1.2-3.4); Absolute Monocytes 0.9 10^3/uL (0.1-0.6); Absolute Neutrophils 9.5 10^3/uL (1.4-6.5); Hematocrit 48.8 % (37.0-47.0); Hemoglobin 16.2 g/dL (12.0-16.0); Mean Corp Hgb Conc. 33.2 g/dL (33.0-37.0); Mean Corpuscular Hgb 29.8 pg (27.0-31.0); Mean Corpuscular Volume 89.7 fL (81.0-99.0); Mean Platelet Volume 12.3 fL (7.4-10.4); Nucleated Red Blood Cells % 0 %; Platelet Count 248 10^3/uL (130-400); Red Blood Cell Count 5.44 10^6/uL (4.20-5.40); Red Cell Dist. Width 14.8 % (11.5-14.5)
[2023-09-30 10:50] VITALS: BP 136/84
[2023-09-30 11:02] LABS: ALT (SGPT) 38 U/L (0-35); AST (SGOT) 42 U/L (14-36); Albumin 3.5 g/dl (3.5-5.0); Alkaline Phosphatase 120 U/L (38-126); Blood Urea Nitrogen 68 mg/dl (7-17); Calcium 9.8 mg/dl (8.4-10.2); Carbon Dioxide 31 mmol/L (22-30); Chloride 98 mmol/L (98-107); Estimated Creatinine Clearance 36 ml/min; Glucose 137 mg/dl (70-99); Potassium 5.4 mmol/L (3.5-5.1); Sodium 139 mmol/L (135-145); Total Bilirubin 0.8 mg/dl (0.2-1.3); Total Protein 6.6 g/dl (6.3-8.2)
[2023-09-30 11:25] LABS: Glucose - Point of Care 154 mg/dl (70-99)
--- NOTE | 2023-09-30 12:48 | W.PN.CARDCBS ---
Today's Communication / Plan
-
I increased Lasix to 20 mg IV twice daily
Will follow
Impression / Plan
-
Impression:
Acute respiratory failure requiring intubation, status post extubation 09/28/2023
COVID-pneumonia
Acute HFrEF, EF now 30-35% had been normal February 2023
Hypotension requiring pressors�resolved
Acute on chronic renal failure.
Hypothyroidism
Non-ST segment elevation myocardial infarction
Echo February 2023, EF 55 to 60% with mild LVH, mild MR, mild aortic stenosis
Echo 09/25/2023: EF 30-35%, global hypokinesis, mild to moderate MR, mild TR, pulmonary artery systolic pressure is 36 mmHg, pleural effusion seen
Plan:
History through nursing and the patient was not examined due to COVID 19 infection
She was extubated on 09/28
Creatinine reviewed and relatively stable at 1.3�1.4
Continue IV Lasix for now given her weights I increased her Lasix to 20 mg IV twice daily
We could consider eventual ischemic evaluation given dramatic anterior lateral ischemia on ECG with peak troponin of 0.7 and ejection fraction of 30 to 35%
Per nursing her respiratory test is stable
Empiric therapy with aspirin, statin, beta-galen is appropriate
Given JUAN, avoid JUAN PABLO/ARB but might reconsider if creatinine remains stable
Management of COVID, etc. per hospitalist and freight tallier.
Progress Note - Associate Web Developer
Subjective
Date of Service: September 30, 2023
History per nursing that her respiratory status is stable if not somewhat improved. She was extubated to September 28 2023
Objective
Labs:
09/30/23 10:02
09/30/23 10:02
Labs
Hgb 16.2 g/dL (12.0-16.0) H 09/30/23 10:02
Hct 48.8 % (37.0-47.0) H 09/30/23 10:02
Plt Count 248 10^3/uL (130-400) 09/30/23 10:02
PT 13.4 Sec (11.4-14.6) 09/22/23 22:10
INR 1.00 09/22/23 22:10
APTT 23.6 Sec (23.4-35.0) 09/22/23 22:10
Sodium 139 mmol/L (135-145) 09/30/23 10:02
Potassium 5.4 mmol/L (3.5-5.1) H D 09/30/23 10:02
BUN 68 mg/dl (7-17) H 09/30/23 10:02
Creatinine 1.4 mg/dL (0.6-1.0) H 09/30/23 10:02
Glucose 137 mg/dl (70-99) H 09/30/23 10:02
Vital Signs and I&O:
Vital Signs
Temp Pulse Resp BP Pulse Ox
97.5 F 93 18 136/84 98
09/30/23 10:50 09/30/23 10:50 09/30/23 10:50 09/30/23 10:50 09/30/23 10:50
Vital Signs
Temp Pulse Resp BP Pulse Ox
97.5 F 93 18 136/84 98
09/30/23 10:50 09/30/23 10:50 09/30/23 10:50 09/30/23 10:50 09/30/23 10:50
Intake & Output
09/28/23 09/29/23 09/30/23 10/01/23
06:59 06:59 06:59 06:59
Intake Total 9.0 / 2150.8 1081.1 / 1081.1 1035 / 1035
Output Total 3620 / 3620 2069 / 2069 1100 / 1100
Balance -1561.0 / -1469.2 -988.9 / -988.9 -65 / -65
Physical Exam
Physical Exam
Exam not performed
[2023-09-30 14:41] VITALS: BP 119/83
[2023-09-30 16:44] LABS: Glucose - Point of Care 175 mg/dl (70-99)
[2023-09-30] MEDS: LIPITOR 20 MG PO (17:37)
[2023-09-30] MEDS: ROCEPHIN 2000 MG IV (17:37)
[2023-09-30] MEDS: STERILE WATER FOR INJECTION 20 ML IV (17:38)
--- NOTE | 2023-09-30 18:32 | W.PN.HOSP.TC ---
Today's Communication/Plan
-
Will need eventual ischemia evaluation
Assessment / Plan
Assessment / Plan
Physical Exam
General: Not in acute distress
HEENT: Normocephalic
Respiratory: Equal air entry bilaterally. On 2 L NC oxygen
Cardiac: S1/S2. RRR
GI: Soft and Nontender
Musculoskeletal: No Edema
Skin: Warm and Dry
Neuro: Sedated
Psych: Calm

Echocardiogram 09/25/23 as per facilities engineer's report:
CONCLUSIONS
Normal left ventricular wall thickness. Normal left ventricular chamber size.
Moderately reduced left ventricular systolic function. Left ventricular
ejection fraction is 30-35%. Global hypokinesis.
Mild to moderate mitral regurgitation.
Mild tricuspid regurgitation. Estimated pulmonary artery pressure of 36
mmHgPleural effusion present.
Compared to the previous echo from February 2023, EF was 55-60% and is now reduced
and MR is worse.

A/P:� Patient is an 83y F with PMH significant for hypothyroidism and anxiety / depression who presented to the ED in respiratory distress 2/2 covid-19 with superimposed pneumonia; initial concern for heart failure.
Acute Hypoxemic Respiratory Failure
VDRF
�- s/p intubation on arrival
- likely multifactorial 2/2 covid and superimposed bacterial pneumonia
- vent management per Pulmonary
- daily SAT
�- Treat individual issues as outlined below.
Acute COVID-19 Pneumonia
Superimposed bacterial pneumonia
MRSA Positive
Sputum cultures growing E. coli and S. aureus
- Sputum cultures grew E. coli and MRSA
�- COVID positive
�- Patient is vaccinated x multiple doses according to assisted living paperwork.
- Continue Decadron
- Status post Remdesivir
- F/U sputum culture and blood cultures
- continue antibiotics: status post Vancomycin and Cefepime, now on Doxycycline and Ceftriaxone; continue
- appreciate pulmonary consult
- ID consulted, recommendations appreciated
Acute HFrEF - EF now 30-35% had been normal February 2023
Suspected Anterolateral Cardiac Ischemia
Hypertensive Emergency
- concern raised for heart failure but creatinine rising with diuresis - continue IV Lasix - diuretics as per cardiology
- was on nitro gtt on admit given SBP > 190
�- Update Echo (February 2023 with LVEF 55-60 and mild )
�- Cardiology evaluation appreciated: can do IV Fluids as per primary service but would watch volume status closely
- Echocardiogram on 09/25/23 - results are above - with worsened ejection fraction
- Aspirin started; continue
- Continue Atorvastatin
- Will need eventual ischemic evaluation - eventually when clinically stable/extubated and if agreeable would consider right and left heart catheterization
Lactic Acidosis
�- Suspect this is mediated on hypoxemia > hypovolemia given evidence of volume overload, etc.
�- Correct hypoxemia as noted above.
JUAN
- creatinine climbed to 1.9 on 09/24/23 with diuresis
- Continue Lasix IV 20 mg BID
- Avoid JUAN PABLO-I or ARB
- consider fluids back
Hypothyroidism
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
Anxiety / Depression
- resume home meds post extubation; on hold with sedation
DVT Prophylaxis:� Lovenox
Diet: As of September 29, 2023: Regular Solids with Thin Liquids (after being on tube feeds prior to that)
Code Status:� Per Dr. Little: Reviewed with son in detail.� Patient had previously been DNR on 2020 admission and son would like to honor those wishes.
Family Discussions
I spoke to patient's family, in the presence of patient's nurse, outside of patient's room on 09/25/23. All questions and concerns were answered to satisfaction.
I spoke to patient's daughter, in the presence of patient's nurse, outside of patient's room on 09/29/23. All questions and concerns were answered to satisfaction.
I spoke to patient's son, in the presence of patient's nurse, inside patient's room on 09/30/23. All questions and concerns were answered to satisfaction.
Anticipated Discharge: > 48 hours
Subjective/Interval History
-
Date of Service: September 30, 2023
Patient was seen and examined. She reported feeling okay, denied any new symptoms.
Objective Data
-
Labs:
Laboratory Results
09/30/23 09/30/23
10:02 20:00
WBC 12.0 H
Hgb 16.2 H
Hct 48.8 H
Plt Count 248
Sodium 139 Pending
Potassium 5.4 H D Pending
Chloride 98 Pending
Carbon Dioxide 31 H Pending
BUN 68 H Pending
Creatinine 1.4 H Pending
Glucose 137 H Pending
Calcium 9.8 Pending
Total Bilirubin 0.8
AST 42 H
ALT 38 H
Alkaline Phosphatase 120
Vital Signs:
Vital Signs
Temp Pulse Resp BP Pulse Ox
98.4 F 93 16 119/83 98
09/30/23 14:41 09/30/23 14:41 09/30/23 14:41 09/30/23 14:41 09/30/23 14:41
I&O
09/29/23 09/30/23 10/01/23
06:59 06:59 06:59
Intake Total 1081.1 / 1081.1 1035 / 1035 480 / 480
Output Total 2069 / 2070 1100 / 1100 600 / 600
Balance -988.9 / -988.9 -65 / -65 -120 / -120
[2023-09-30 19:09] VITALS: BP 147/78
--- NOTE | 2023-09-30 20:55 | W.PN.PUL3 ---
Today's Communication / Plan
-
O2
Atbs
Dexam
Reconsult prn
Assessment
-
Assessment: 83-year-old female former tobacco smoker with a PMHx of hypothyroidism, depression and hypertension/hyperlipidemia who presents with difficulty breathing which worsened throughout the day. She was very short of breath and respiratory
distress and hypoxic which did not improve with BiPAP and she was intubated in the ER. Imaging showed bilateral pneumonia concerning for infection +/- pulmonary edema. BP was elevated requiring nitroglycerin drip. She was also diuresed.
Antibiotics were given in the ER as well as steroids and nebulized bronchodilators. She was transferred to the ICU for further care with back closer/pulmonary services consulted for additional management/recommendations.
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
Impression:
#Acute hypoxemic respiratory failure with hypoxemia and hypercapnia due to bilateral pneumonia +/- acute pulmonary edema in setting of HTN crisis; DDx also includes ADHF
#Sepsis without shock due to bilateral pneumonia (suspect COVID-19 with bacterial superinfection)
#Hypertensive crisis briefly on nitro gtt --> BP now improved
#On mechanical ventilation, intubated at ER 09-22, extubated 09-28
#COVID-19 pneumonia
#Acute kidney injury (baseline Cr approximately 1�1 0.2)
#NSTEMI: Elevated troponin - likely due to demand ischemia with type II MO - troponin peaked at 0.723 on 09/23/2023
#Lactic acidosis
#Subclinical hypothyroidism
Plan:
Intubated at ER 09-23
Maintained on ACV with no major issues, extubated 09-28
Doing well on O2 NC, decreasing O2 requirement from 6L to 2L, POx 99%
Home O2 evaluation PTD
prn BPAP ordered: did not require, d/c order
CXR 09-24 showed significant improvement bilateral pulm edema, suspected R basilar infiltrate and new small R>L pleural effusions
CXR 01-29 post RUE PICC showed recurrence of pulmonary edema pattern at L hilar, RUL, RLL areas
CXR 09-28: resolving pulm edema
Continue decadron (through 10-02 and d/c) and remdesivir (completed on 09-26) for treatment of COVID pneumonia
On empiric atbs cefepime (adjusted for renal function)/vancomycin/(azithromycin)
(Elevated QTc, d/c azithro 09-25)
Trach secs: E coli, hawkins-S x I to cefazolin and R to ampicillin and amp/sulb
Cefepime changed to ceftriaxone high dose 09-27, continue through 10-02
MRSA susceptible to tetracycline, will use doxycycline 100 bid per NGT
Will continue to complete 10 d regimen through 10-02
MRSA screening positive
Blood cxs so far negative from 09-22
Flu, RSV, Leg/strep UAg negative
-Trending troponin as it peaked at 0.723 on 09-23 and then decreased to 0.411 on 09-24
On outpatient furosemide 20 mg qd
Dose furosemide 20 mg IV x1 on 09-25, good diuresis obtained, -1kg in 24 hrs with 3.5L diuresis
Redose furosemide 20 mg IV 09-26 and 09-27, now continue daily (she is on outpatient 20 mg po qd)
Cardiology following
TTE 09-25 confirms new onset LVEF 30-35% with global hypokinesis, now MR mild to mod from previously mild
Continue to trend UOP, sCr --> keep net negative as tolerated
Continue low dose carvedilol
prn IV hydralazine for SBP>140
Cards adjusting furosemide, monitor Cr
Hypothyroidism: continue L-thyroxine
Enteral feedings started 09-25
Speech evaluation 09-29 with mild functional OD, but OK for regular solids/thin liquids
H/o anxiety, continue venlafaxine, resumed aripiprazole
DVT prophylaxis: enoxaparin, transitioned to sc hep 09-25
GI proph: IV PPI, d/c 09-29
DNR code status
Reconsult prn
Data:
CXR 09-24-2023: Previously noted parenchymal disease process, which could have represented pneumonia or pulmonary edema,has improved. Interval development and/or progression of small to moderate bilateral pleural effusions.
CXR 09-22-2023:
Status post intubation. No pneumothorax.
Stable moderate bilateral pneumonia.
Subjective Data
-
Date of Service:
Date of Service: September 30, 2023
Chief Complaint: Pulmonary Follow Up
Subjective:
No major resp events reported
Decreasing O2 requirements
Dyspnea and cough improved
Review of Systems
General: Fever (n), Sweats (n), Chills and Satisfactory Appetite (n)
HEENT: Epistaxis (n)
Cardiopulmonary: Dyspnea (mikd), Cough (resolving), Sputum Production (n) and Chest Pain (n)
GI: Abdominal Pain (n), Nausea (n) and Vomiting (n)
Neuro: Weakness (improved)
Objective Data
Data Reviewed
Vital Signs / I&O / Oxygen:
Vital Signs
Temp Pulse Resp BP Pulse Ox
97.7 F 99 20 147/78 97
09/30/23 19:09 09/30/23 19:09 09/30/23 19:09 09/30/23 19:09 09/30/23 19:09
Intake and Output
09/29/23 09/30/23 10/01/23
06:59 06:59 06:59
Intake Total 1081.1 / 1081.1 1035 / 1035 480 / 480
Output Total 0 / 2070 1100 / 1100 600 / 600
Balance -988.9 / -988.9 -65 / -65 -120 / -120
SaO2 [CPAP] 40
SaO2 [A/C] 92
SaO2 97
Nasal Cannula flow liters per 2
minute
Physical Exam
General: Comfortable
HEENT: Normocephalic and Moist Mucous Membranes
Cardiovascular: Regular Rhythm and Peripheral Edema (BROOK)
Respiratory: Rhonchi and Stridor (n)
GI: Soft, Non Distended and Non Tender
Neurology: Awake, Oriented and No Motor Deficits
Skin: Dry
Labs/Micro/Reports
Lab Data
09/30/23 10:02
Microbiology
09/23/23 16:01 Endotracheal Respiratory Culture - Final
Escherichia coli
Staph aureus MRSA
09/23/23 16:01 Endotracheal Gram Stain - Final
09/22/23 21:20 Blood/Venous Blood Culture - Final
No Growth - Final Report
09/22/23 21:20 Blood/Venous Blood Culture - Final
No Growth - Final Report
[2023-09-30 21:48] LABS: Glucose - Point of Care 160 mg/dl (70-99)
[2023-09-30 21:56] LABS: Blood Urea Nitrogen 66 mg/dl (7-17); Calcium 9.1 mg/dl (8.4-10.2); Carbon Dioxide 29 mmol/L (22-30); Chloride 101 mmol/L (98-107); Estimated Creatinine Clearance 36 ml/min; Glucose 160 mg/dl (70-99); Potassium 4.4 mmol/L (3.5-5.1); Sodium 133 mmol/L (135-145)
[2023-09-30 23:41] VITALS: BP 138/85
[2023-10-01] MEDS: HEPARIN 5000 UNITS SC ×3 (00:29→15:39)
[2023-10-01 03:52] VITALS: BP 137/86
[2023-10-01] MEDS: SYNTHROID 137 MCG PO (05:40)
[2023-10-01 06:00] VITALS: BMI 37.0
[2023-10-01 07:03] VITALS: BP 138/73
[2023-10-01 08:01] LABS: Glucose - Point of Care 161 mg/dl (70-99)
[2023-10-01] MEDS: VIBRAMYCIN 100 MG PO ×2 (08:17→20:33)
[2023-10-01] MEDS: DECADRON 6 MG PO (08:17)
[2023-10-01] MEDS: EFFEXOR 75 MG PO ×3 (08:17→22:04)
[2023-10-01] MEDS: COREG 3.125 MG PO ×2 (08:18→20:33)
[2023-10-01] MEDS: ABILIFY 2 MG PO (08:18)
[2023-10-01] MEDS: LASIX 20 MG IV ×2 (08:18→20:34)
[2023-10-01] MEDS: LOW STRENGTH ASPIRIN 81 MG PO (08:18)
[2023-10-01 08:46] LABS: % Basophils 0.4 % (0-2); % Eosinophils 1.7 % (0-6); % Lymphocytes 9.4 % (20.5-51.1); % Monocytes 9.3 % (1.7-9.3); % Neutrophils 76.2 % (42.2-75.2); Absolute Eosinophils 0.2 10^3/uL (0-0.7); Absolute Immature Granulocytes 0.3 10^3/uL (0-0.05); Absolute Neutrophils 8.3 10^3/uL (1.4-6.5); Hematocrit 42.2 % (37.0-47.0); Hemoglobin 13.9 g/dL (12.0-16.0); Mean Corp Hgb Conc. 32.9 g/dL (33.0-37.0); Mean Corpuscular Hgb 29.8 pg (27.0-31.0); Mean Corpuscular Volume 90.4 fL (81.0-99.0); Mean Platelet Volume 12.3 fL (7.4-10.4); Nucleated Red Blood Cells % 0 %; Platelet Count 218 10^3/uL (130-400); Red Blood Cell Count 4.67 10^6/uL (4.20-5.40); Red Cell Dist. Width 14.6 % (11.5-14.5); White Blood Cell Count 10.9 10^3/uL (4.8-10.8)
[2023-10-01 09:07] LABS: ALT (SGPT) 44 U/L (0-35); AST (SGOT) 41 U/L (14-36); Alkaline Phosphatase 102 U/L (38-126); Blood Urea Nitrogen 66 mg/dl (7-17); Calcium 9.3 mg/dl (8.4-10.2); Carbon Dioxide 27 mmol/L (22-30); Chloride 102 mmol/L (98-107); Estimated Creatinine Clearance 39 ml/min; Glucose 83 mg/dl (70-99); Potassium 4.4 mmol/L (3.5-5.1); Sodium 136 mmol/L (135-145); Total Bilirubin 0.7 mg/dl (0.2-1.3); Total Protein 5.9 g/dl (6.3-8.2); eGFR 41.31
[2023-10-01 11:03] VITALS: BP 128/69
[2023-10-01 11:44] LABS: Glucose - Point of Care 142 mg/dl (70-99)
[2023-10-01 15:05] VITALS: BP 128/70
--- NOTE | 2023-10-01 16:19 | W.PN.HOSP.TC ---
Today's Communication/Plan
-
Continue Antibiotics and diuresis
Cardiac cath prior to discharge
Assessment / Plan
Assessment / Plan
Physical Exam
General: Not in acute distress
HEENT: Normocephalic
Respiratory: Equal air entry bilaterally. On 2 L NC oxygen
Cardiac: S1/S2. RRR
GI: Soft and Nontender
Musculoskeletal: No Edema
Skin: Warm and Dry
Neuro: Sedated
Psych: Calm

Echocardiogram 09/25/23 as per city carrier assistant's report:
CONCLUSIONS
Normal left ventricular wall thickness. Normal left ventricular chamber size.
Moderately reduced left ventricular systolic function. Left ventricular
ejection fraction is 30-35%. Global hypokinesis.
Mild to moderate mitral regurgitation.
Mild tricuspid regurgitation. Estimated pulmonary artery pressure of 36
mmHgPleural effusion present.
Compared to the previous echo from February 2023, EF was 55-60% and is now reduced
and MR is worse.

A/P:� Patient is an 83y F with PMH significant for hypothyroidism and anxiety / depression who presented to the ED in respiratory distress 2/2 covid-19 with superimposed pneumonia; initial concern for heart failure.
Acute Hypoxemic Respiratory Failure
VDRF
�- s/p intubation on arrival
- now status post extubation and out of ICU
- likely multifactorial 2/2 covid and superimposed bacterial pneumonia
- daily SAT
�- Treat individual issues as outlined below.
Acute COVID-19 Pneumonia
Superimposed bacterial pneumonia
MRSA Positive
Sputum cultures growing E. coli and S. aureus
- Sputum cultures grew E. coli and MRSA
�- COVID positive
�- Patient is vaccinated x multiple doses according to assisted living paperwork.
- Continue Decadron
- Status post Remdesivir
- F/U sputum culture and blood cultures
- continue antibiotics: status post Vancomycin and Cefepime, now on Doxycycline and Ceftriaxone; continue
- appreciate pulmonary consult
- ID consulted, recommendations appreciated
Acute HFrEF - EF now 30-35% had been normal February 2023
Suspected Anterolateral Cardiac Ischemia
Hypertensive Emergency
- concern raised for heart failure but creatinine rising with diuresis - continue IV Lasix - diuretics as per cardiology
- was on nitro gtt on admit given SBP > 190
�- Update Echo (February 2023 with LVEF 55-60 and mild )
�- Cardiology evaluation appreciated: can do IV Fluids as per primary service but would watch volume status closely
- Echocardiogram on 09/25/23 - results are above - with worsened ejection fraction
- Aspirin started; continue
- Continue Atorvastatin
- Will need eventual ischemic evaluation - eventually would consider right and left heart catheterization
Lactic Acidosis
�- Suspect this is mediated on hypoxemia > hypovolemia given evidence of volume overload, etc.
�- Correct hypoxemia as noted above.
JUAN
- creatinine climbed to 1.9 on 09/24/23 with diuresis
- Continue Lasix IV 20 mg BID
- Avoid JUAN PABLO-I or ARB
- consider fluids back
Hypothyroidism
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
Anxiety / Depression
- resume home meds post extubation; on hold with sedation
DVT Prophylaxis:� Lovenox
Diet: As of September 29, 2023: Regular Solids with Thin Liquids (after being on tube feeds prior to that)
Code Status:� Per Dr. Little: Reviewed with son in detail.� Patient had previously been DNR on 2020 admission and son would like to honor those wishes.
Family Discussions
I spoke to patient's family, in the presence of patient's nurse, outside of patient's room on 09/25/23. All questions and concerns were answered to satisfaction.
I spoke to patient's daughter, in the presence of patient's nurse, outside of patient's room on 09/29/23. All questions and concerns were answered to satisfaction.
I spoke to patient's son, in the presence of patient's nurse, inside patient's room on 09/30/23. All questions and concerns were answered to satisfaction.
I spoke to patient's son, in the presence of patient's nurse, inside patient's room on 10/01/23. All questions and concerns were answered to satisfaction.
Anticipated Discharge: > 48 hours
Subjective/Interval History
-
Date of Service: October 01, 2023
Patient was seen and examined. She was doing okay, her son was present in the room, she reported no new complaints, nurse did say she was winded when got up today, her pulse ox was in the 90s however.
Objective Data
-
Labs:
Laboratory Results
10/01/23
08:09
WBC 10.9 H
Hgb 13.9
Hct 42.2
Plt Count 218
Sodium 136
Potassium 4.4
Chloride 102
Carbon Dioxide 27
BUN 66 H
Creatinine 1.3 H
Glucose 83
Calcium 9.3
Total Bilirubin 0.7
AST 41 H
ALT 44 H
Alkaline Phosphatase 102
Vital Signs:
Vital Signs
Temp Pulse Resp BP Pulse Ox
97.8 F 73 16 128/70 98
10/01/23 15:05 10/01/23 15:05 10/01/23 15:05 10/01/23 15:05 10/01/23 16:16
I&O
09/30/23 10/01/23 10/02/23
06:59 06:59 06:59
Intake Total 1035 / 1035 940 / 940
Output Total 1100 / 1100 1150 / 1150
Balance -65 / -65 -210 / -210
[2023-10-01 16:57] LABS: Glucose - Point of Care 227 mg/dl (70-99)
[2023-10-01] MEDS: LIPITOR 20 MG PO (17:09)
[2023-10-01] MEDS: STERILE WATER FOR INJECTION 20 ML IV (17:09)
[2023-10-01] MEDS: ROCEPHIN 2000 MG IV (17:09)
[2023-10-01 19:27] VITALS: BP 144/85
[2023-10-01 21:45] LABS: Glucose - Point of Care 141 mg/dl (70-99)
[2023-10-01 23:33] VITALS: BP 149/94
[2023-10-02] MEDS: HEPARIN 5000 UNITS SC ×3 (00:06→15:49)
[2023-10-02 03:39] VITALS: BP 158/85
[2023-10-02 05:36] VITALS: BMI 36.3
[2023-10-02] MEDS: SYNTHROID 137 MCG PO (06:03)
[2023-10-02 07:03] VITALS: BP 138/90
[2023-10-02 08:18] LABS: Glucose - Point of Care 65 mg/dl (70-99)
[2023-10-02 08:24] LABS: Glucose - Point of Care 57 mg/dl (70-99)
[2023-10-02] MEDS: EFFEXOR 75 MG PO ×3 (08:25→20:50)
[2023-10-02] MEDS: DECADRON 6 MG PO (08:25)
[2023-10-02] MEDS: LASIX 20 MG IV ×2 (08:28→20:50)
[2023-10-02] MEDS: VIBRAMYCIN 100 MG PO ×2 (08:28→20:49)
[2023-10-02] MEDS: LOW STRENGTH ASPIRIN 81 MG PO (08:28)
[2023-10-02] MEDS: COREG 3.125 MG PO ×2 (08:28→20:50)
[2023-10-02] MEDS: ABILIFY 2 MG PO (08:28)
[2023-10-02 08:49] LABS: Glucose - Point of Care 75 mg/dl (70-99)
[2023-10-02 08:49] LABS: % Basophils 0.3 % (0-2); % Eosinophils 1.8 % (0-6); % Immature Granulocytes 2.9 % (0-0.5); % Lymphocytes 11.1 % (20.5-51.1); % Monocytes 10.3 % (1.7-9.3); % Neutrophils 73.6 % (42.2-75.2); Absolute Eosinophils 0.3 10^3/uL (0-0.7); Absolute Immature Granulocytes 0.4 10^3/uL (0-0.05); Absolute Lymphocytes 1.6 10^3/uL (1.2-3.4); Absolute Monocytes 1.5 10^3/uL (0.1-0.6); Absolute Neutrophils 10.4 10^3/uL (1.4-6.5); Hematocrit 43.4 % (37.0-47.0); Hemoglobin 14.6 g/dL (12.0-16.0); Mean Corp Hgb Conc. 33.6 g/dL (33.0-37.0); Mean Corpuscular Hgb 29.8 pg (27.0-31.0); Mean Corpuscular Volume 88.6 fL (81.0-99.0); Mean Platelet Volume 12.4 fL (7.4-10.4); Nucleated Red Blood Cells % 0 %; Platelet Count 263 10^3/uL (130-400); Red Cell Dist. Width 14.6 % (11.5-14.5); White Blood Cell Count 14.1 10^3/uL (4.8-10.8)
[2023-10-02 09:15] LABS: ALT (SGPT) 50 U/L (0-35); AST (SGOT) 44 U/L (14-36); Albumin 3.6 g/dl (3.5-5.0); Alkaline Phosphatase 128 U/L (38-126); Blood Urea Nitrogen 59 mg/dl (7-17); Calcium 9.4 mg/dl (8.4-10.2); Carbon Dioxide 30 mmol/L (22-30); Chloride 102 mmol/L (98-107); Estimated Creatinine Clearance 38 ml/min; Glucose 80 mg/dl (70-99); Potassium 4.2 mmol/L (3.5-5.1); Sodium 135 mmol/L (135-145); Total Protein 6.6 g/dl (6.3-8.2); Triglycerides 226 mg/dl (10-149); eGFR 41.31
--- NOTE | 2023-10-02 09:19 | W.PN.HOSP.TC ---
Addendum entered and electronically signed by Benji Weinberg MD 10/02/23 09:54:
correction, both ID and Pulm have signed off
Original Note:
Today's Communication/Plan
-
CXR
follow CBC
PT/OT
Assessment / Plan
Assessment / Plan

Echocardiogram 09/25/23 as per addiction professional's report:
CONCLUSIONS
Normal left ventricular wall thickness. Normal left ventricular chamber size.
Moderately reduced left ventricular systolic function. Left ventricular
ejection fraction is 30-35%. Global hypokinesis.
Mild to moderate mitral regurgitation.
Mild tricuspid regurgitation. Estimated pulmonary artery pressure of 36
mmHgPleural effusion present.
Compared to the previous echo from February 2023, EF was 55-60% and is now reduced
and MR is worse.

A/P:� Patient is an 83y F with PMH significant for hypothyroidism and anxiety / depression who presented to the ED in respiratory distress 2/2 covid-19 with superimposed pneumonia; initial concern for heart failure.
Acute Hypoxemic Respiratory Failure
VDRF
�- s/p intubation on arrival
- now status post extubation and out of ICU
- likely multifactorial 2/2 covid and superimposed bacterial pneumonia
- daily SAT
�- Treat individual issues as outlined below.
Acute COVID-19 Pneumonia
Superimposed bacterial pneumonia
MRSA Positive
Sputum cultures grew E. coli and S. aureus (MRSA)
�- COVID positive
�- Patient is vaccinated x multiple doses according to assisted living paperwork.(Lives at [facility])
- remains on Decadron (received IV x 6 doses and orally, including today 4 doses). Stop Decadron when okay with Pulm
- Status post Remdesivir
- F/U sputum culture and blood cultures
- continue antibiotics: status post Vancomycin and Cefepime, now on Doxycycline and Ceftriaxone; continue
- appreciate pulmonary consult
- ID consulted, recommendations appreciated
WBC remains elevated, ?related to steroids vs ongoing infection, await further input from Pulm/ID
Oxygenation better, 98% on 2 L/M, discussed with nursing, would begin to taper
PT/OT consults
remains on Rocephin/Doxy
CXR
Acute HFrEF - EF now 30-35% had been normal February 2023
Suspected Anterolateral Cardiac Ischemia
Hypertensive Emergency
- concern raised for heart failure but creatinine rising with diuresis - continue IV Lasix - diuretics as per cardiology
- was on nitro gtt on admit given SBP > 190
�- Update Echo (February 2023 with LVEF 55-60 and mild )
�- Cardiology evaluation appreciated: can do IV Fluids as per primary service but would watch volume status closely
- Echocardiogram on 09/25/23 - results are above - with worsened ejection fraction
- Aspirin started; continue
- Continue Atorvastatin
- Will need eventual ischemic evaluation - eventually would consider right and left heart catheterization
Lactic Acidosis
�- Suspect this is mediated on hypoxemia > hypovolemia given evidence of volume overload, etc.
�- Correct hypoxemia as noted above.
JUAN
- creatinine climbed to 1.9 on 09/24/23 with diuresis, Creat now 1.3
- Continue Lasix IV 20 mg BID
- Avoid JUAN PABLO-I or ARB
Hypothyroidism
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
Anxiety / Depression
- resume home meds post extubation; on hold with sedation
DVT Prophylaxis:� Lovenox
Diet: As of September 29, 2023: Regular Solids with Thin Liquids (after being on tube feeds prior to that)
Code Status:� Per Dr. Little: Reviewed with son in detail.� Patient had previously been DNR on 2020 admission and son would like to honor those wishes.
Family Discussions
Dr. Cook spoke to patient's family, in the presence of patient's nurse, outside of patient's room on 09/25/23. All questions and concerns were answered to satisfaction.
' ' spoke to patient's daughter, in the presence of patient's nurse, outside of patient's room on 09/29/23. All questions and concerns were answered to satisfaction.
' ' spoke to patient's son, in the presence of patient's nurse, inside patient's room on 09/30/23. All questions and concerns were answered to satisfaction.
' ' spoke to patient's son, in the presence of patient's nurse, inside patient's room on 10/01/23. All questions and concerns were answered to satisfaction.
Anticipated Discharge: 24 - 48 hours
Subjective/Interval History
-
Date of Service: October 02, 2023
Generally feeling better, less sob
Objective Data
-
Labs:
Laboratory Results
10/02/23
08:23
WBC 14.1 H
Hgb 14.6
Hct 43.4
Plt Count 263 D
Sodium 135
Potassium 4.2
Chloride 102
Carbon Dioxide 30
BUN 59 H
Creatinine 1.3 H
Glucose 80
Calcium 9.4
Total Bilirubin 1.0
AST 44 H
ALT 50 H
Alkaline Phosphatase 128 H
Vital Signs:
Vital Signs
Temp Pulse Resp BP Pulse Ox
98.0 F 85 16 138/90 98
10/02/23 07:03 10/02/23 08:28 10/02/23 07:03 10/02/23 08:28 10/02/23 07:03
I&O
10/01/23 10/02/23 10/03/23
06:59 06:59 06:59
Intake Total 940 / 940 1920 / 1920
Output Total 1150 / 1150 450 / 450
Balance -210 / -210 1470 / 1470
Review of Systems
-
History Source: Patient and Coordinated Provider
Constitutional: Denies Fever
EENT: Reports No Symptoms Reported
Respiratory: Denies Cough or Trouble Breathing
Cardiac: Reports No Symptoms; Denies Chest Pain
Abdomen/GI: Reports No Symptoms; Denies Abdominal Pain
Genitourinary: Reports No Symptoms
Musculoskeletal: Reports No Symptoms
Physical Exam
-
General: Well Developed, Well Nourished and No Apparent Distress
HEENT: Normocephalic, Atraumatic and Moist Mucous Membranes
Respiratory: Rales (bibasilar fine rales, no wheeze)
Cardiac: Regular Rhythm and S1/S2
GI: Soft, Nontender and Nondistended
Musculoskeletal: No Clubbing, No Cyanosis and No Edema
Neuro: Awake, Alert and Oriented
[2023-10-02 11:10] VITALS: BP 108/80
[2023-10-02 12:05] LABS: Glucose - Point of Care 149 mg/dl (70-99)
--- NOTE | 2023-10-02 13:42 | PN.CDI ---
CDI
- -
CDI:
Physician Documentation Request
Admit Date: 09/23/23 00:21
Dear Doctor Lenard,
Patient admitted with covid.
09/30 Cardiology PN: 'Non-ST segment elevation myocardial infarction'
09/30 Pulmonary PN: 'NSTEMI: Elevated troponin - likely due to demand ischemia with type II DE - troponin peaked at 0.723 on 09/23/2023'
10/02 Hospitalist PN: 'Suspected Anterolateral Cardiac Ischemia'
Please clarify the following regarding the documented myocardial infarction'
NSTEMI
Type 2 DE due to demand ischemia
Other
Use of terms such as suspected, likely, concern for, or probable (associated with a specific diagnosis that is being evaluated, monitored, or treated as if it exists) are acceptable and can be coded in the inpatient setting, when documented at the
time of discharge.
Thank you,
Courtney Rg RN, BSN
CDI Specialist
Available via [employer] text
Please use your independent medical judgment in providing your response.
--- NOTE | 2023-10-02 13:51 | W.PN.CARDCBS ---
Today's Communication / Plan
-
cont iv lasix
consider change to oral lasix next 24 hrs
d/w daughter at bedside
consider outpt ischemic evaluation vs empiric treatment
Impression / Plan
-
Impression:
Acute respiratory failure requiring intubation, status post extubation 09/28/2023
COVID-pneumonia
Acute HFrEF, EF now 30-35% had been normal February 2023
Hypotension requiring pressors�resolved
Acute on chronic renal failure.
Hypothyroidism
Non-ST segment elevation myocardial infarction
Echo February 2023, EF 55 to 60% with mild LVH, mild MR, mild aortic stenosis
Echo 09/25/2023: EF 30-35%, global hypokinesis, mild to moderate MR, mild TR, pulmonary artery systolic pressure is 36 mmHg, pleural effusion seen
Plan:
She is a difficult volume status but continues to improve.
Weight is down 4 pounds in the past 24 hours. Weight is down possibly 17 pounds since admission at 211 pounds on 10/02/2023
Creatinine has been stable at 1.3
Consider change to oral Lasix in the next 24 hours but remains on 2 L which may be multifactorial
We could consider eventual ischemic evaluation given dramatic anterior lateral ischemia on ECG with peak troponin of 0.7 and ejection fraction of 30 to 35%
cont aspirin, statin, beta-galen is appropriate
Given JUAN, avoid JUAN PABLO/ARB but might reconsider if creatinine remains stable
Management of COVID, etc. per hospitalist and director of institutional giving.
Progress Note - Chinese Instructor
Subjective
Date of Service: October 02, 2023
No complaints
Objective
Labs:
10/02/23 08:23
10/02/23 08:23
Labs
Hgb 14.6 g/dL (12.0-16.0) 10/02/23 08:23
Hct 43.4 % (37.0-47.0) 10/02/23 08:23
Plt Count 263 10^3/uL (130-400) D 10/02/23 08:23
PT 13.4 Sec (11.4-14.6) 09/22/23 22:10
INR 1.00 09/22/23 22:10
APTT 23.6 Sec (23.4-35.0) 09/22/23 22:10
Sodium 135 mmol/L (135-145) 10/02/23 08:23
Potassium 4.2 mmol/L (3.5-5.1) 10/02/23 08:23
BUN 59 mg/dl (7-17) H 10/02/23 08:23
Creatinine 1.3 mg/dL (0.6-1.0) H 10/02/23 08:23
Glucose 80 mg/dl (70-99) 10/02/23 08:23
Vital Signs and I&O:
Vital Signs
Temp Pulse Resp BP Pulse Ox
98.0 F 85 16 138/90 97
10/02/23 07:03 10/02/23 08:28 10/02/23 07:03 10/02/23 08:28 10/02/23 11:00
Vital Signs
Temp Pulse Resp BP Pulse Ox
98.0 F 85 16 138/90 97
10/02/23 07:03 10/02/23 08:28 10/02/23 07:03 10/02/23 08:28 10/02/23 11:00
Intake & Output
09/30/23 10/01/23 10/02/23 10/03/23
06:59 06:59 06:59 06:59
Intake Total 1035 / 1035 940 / 940 1920 / 1920
Output Total 1100 / 1100 1150 / 1150 450 / 450
Balance -65 / -65 -210 / -210 1470 / 1470
Physical Exam
Physical Exam
General: Well developed, well nourished in NAD.
Neck: Supple, no JVD, HJR, carotids +2 B/L, no bruits bilaterally.
Heart: Non displaced PMI, RRR, no murmurs, No S3, S4, no rubs.
Lungs: Scattered rhonchi
Extremities: No clubbing, cyanosis or edema bilaterally.
Neuro: Grossly nonfocal, awake, alert and oriented x3.
[2023-10-02 15:05] VITALS: BP 131/82
[2023-10-02 17:03] LABS: Glucose - Point of Care 136 mg/dl (70-99)
--- NOTE | 2023-10-02 17:03 | CM ---
Discharge Plan of Care: [facility] when discharged. Leatha pattne @ [phone].
[2023-10-02] MEDS: LIPITOR 20 MG PO (18:01)
[2023-10-02] MEDS: STERILE WATER FOR INJECTION 20 ML IV (18:01)
[2023-10-02] MEDS: ROCEPHIN 2000 MG IV (18:02)
[2023-10-02 21:06] LABS: Glucose - Point of Care 128 mg/dl (70-99)
[2023-10-02 23:17] VITALS: BP 146/49
[2023-10-03] MEDS: HEPARIN 5000 UNITS SC ×2 (00:22→08:21)
[2023-10-03 03:07] LABS: Glucose - Point of Care 102 mg/dl (70-99)
[2023-10-03] MEDS: APRESOLINE 5 MG IV (04:12)
[2023-10-03] MEDS: SYNTHROID 137 MCG PO (04:15)
[2023-10-03 04:19] VITALS: BMI 36.7
[2023-10-03 04:23] LABS: % Basophils 0.2 % (0-2); % Eosinophils 0.5 % (0-6); % Immature Granulocytes 2.4 % (0-0.5); % Lymphocytes 8.1 % (20.5-51.1); % Monocytes 9.7 % (1.7-9.3); % Neutrophils 79.1 % (42.2-75.2); Absolute Eosinophils 0.1 10^3/uL (0-0.7); Absolute Immature Granulocytes 0.3 10^3/uL (0-0.05); Absolute Lymphocytes 1.1 10^3/uL (1.2-3.4); Absolute Monocytes 1.3 10^3/uL (0.1-0.6); Absolute Neutrophils 10.4 10^3/uL (1.4-6.5); Hematocrit 42.8 % (37.0-47.0); Hemoglobin 14.1 g/dL (12.0-16.0); Mean Corp Hgb Conc. 32.9 g/dL (33.0-37.0); Mean Corpuscular Hgb 29.7 pg (27.0-31.0); Mean Corpuscular Volume 90.1 fL (81.0-99.0); Mean Platelet Volume 12.2 fL (7.4-10.4); Nucleated Red Blood Cells % 0 %; Platelet Count 235 10^3/uL (130-400); Red Blood Cell Count 4.75 10^6/uL (4.20-5.40); Red Cell Dist. Width 14.4 % (11.5-14.5); White Blood Cell Count 13.2 10^3/uL (4.8-10.8)
[2023-10-03 04:56] LABS: ALT (SGPT) 49 U/L (0-35); AST (SGOT) 44 U/L (14-36); Albumin 3.2 g/dl (3.5-5.0); Alkaline Phosphatase 94 U/L (38-126); Blood Urea Nitrogen 68 mg/dl (7-17); Calcium 9.4 mg/dl (8.4-10.2); Carbon Dioxide 31 mmol/L (22-30); Chloride 97 mmol/L (98-107); Estimated Creatinine Clearance 36 ml/min; Glucose 108 mg/dl (70-99); Potassium 4.9 mmol/L (3.5-5.1); Sodium 134 mmol/L (135-145); Total Bilirubin 0.9 mg/dl (0.2-1.3); Total Protein 6.3 g/dl (6.3-8.2)
[2023-10-03 04:58] LABS: Procalcitonin < 0.05 ng/ml (0.0-0.25)
[2023-10-03 07:05] VITALS: BP 147/77
[2023-10-03 07:18] LABS: Glucose - Point of Care 83 mg/dl (70-99)
--- NOTE | 2023-10-03 08:04 | W.PN.HOSP.TC ---
Addendum entered and electronically signed by Benji Weinberg MD 10/03/23 11:58:
Just received call from CM, arrangements completed, pt can be dc
Original Note:
Today's Communication/Plan
-
off abx, Decadron
await ending of Covid isolation
Inc Spirometry
change Lasix to daily and oral
await decision from cardio regarding okay for dc
Assessment / Plan
Assessment / Plan

Echocardiogram 09/25/23 as per board setter's report:
CONCLUSIONS
Normal left ventricular wall thickness. Normal left ventricular chamber size.
Moderately reduced left ventricular systolic function. Left ventricular
ejection fraction is 30-35%. Global hypokinesis.
Mild to moderate mitral regurgitation.
Mild tricuspid regurgitation. Estimated pulmonary artery pressure of 36
mmHgPleural effusion present.
Compared to the previous echo from February 2023, EF was 55-60% and is now reduced
and MR is worse.

A/P:� Patient is an 83y F with PMH significant for hypothyroidism and anxiety / depression who presented to the ED in respiratory distress 2/2 covid-19 with superimposed pneumonia; initial concern for heart failure.
Acute Hypoxemic Respiratory Failure
VDRF
�- s/p intubation on arrival
- now status post extubation and out of ICU
- likely multifactorial 2/2 covid and superimposed bacterial pneumonia
- Incentive Spirometer
�- Treat individual issues as outlined below.
Acute COVID-19 Pneumonia
Superimposed bacterial pneumonia
MRSA Positive
Sputum cultures grew E. coli and S. aureus (MRSA)
�- COVID positive
now 10 days post dx, await clearance by Inf Control to come off isolation
�- Patient is vaccinated x multiple doses according to assisted living paperwork.(Lives at [facility])
- completed Decadron and now stopped
- Status post Remdesivir
- continue antibiotics: status post Vancomycin and Cefepime, then on Doxycycline and Ceftriaxone; stopped
- appreciate pulmonary consult
- ID consulted, recommendations appreciated
WBC remains elevated, ?related to steroids vs ongoing infection, await further input from Pulm/ID
Oxygenation better, 98% on 2 L/M, discussed with nursing, would begin to taper
PT/OT consults
Was on Rocephin/Doxy, stopped as of 10/02
CXR No acute cardiopulmonary process
WBC 13.2k (?due to steroids, no evidence of active infection)
Input from PT/OT appreciated
Acute HFrEF - EF now 30-35% had been normal February 2023
wt 106.5-->96.8kg
NSTEMI: Elevated troponin - likely due to demand ischemia with type II NE - troponin peaked at 0.723 on 09/23/2023
Hypertensive Emergency
- concern raised for heart failure but creatinine rising with diuresis - will change Lasix to oral
- was on nitro gtt on admit given SBP > 190
�- Update Echo (February 2023 with LVEF 55-60 and mild )
�- Cardiology evaluation appreciated: can do IV Fluids as per primary service but would watch volume status closely
- Echocardiogram on 09/25/23 - results are above - with worsened ejection fraction
- Aspirin started; continue
- Continue Atorvastatin
- Will need eventual ischemic evaluation - eventually would consider right and left heart catheterization
Lactic Acidosis
�- Suspect this is mediated on hypoxemia > hypovolemia given evidence of volume overload, etc.
�- Correct hypoxemia as noted above.
4.9-->2.2
JUAN
- creatinine climbed to 1.9 on 09/24/23 with diuresis, Creat 1.3-->1.4
- Change Lasix to oral, would prefer daily with rising renal parameters and excellent wt loss
- Avoid JUAN PABLO-I or ARB
Hypothyroidism
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
Anxiety / Depression
- resume home meds post extubation; on hold with sedation
DVT Prophylaxis:� Lovenox
Diet: As of September 29, 2023: Regular Solids with Thin Liquids (after being on tube feeds prior to that)
Code Status:� Per Dr. Little: Reviewed with son in detail.� Patient had previously been DNR on 2020 admission and son would like to honor those wishes.
Family Discussions
Dr. Cook spoke to patient's family, in the presence of patient's nurse, outside of patient's room on 09/25/23. All questions and concerns were answered to satisfaction.
' ' spoke to patient's daughter, in the presence of patient's nurse, outside of patient's room on 09/29/23. All questions and concerns were answered to satisfaction.
' ' spoke to patient's son, in the presence of patient's nurse, inside patient's room on 09/30/23. All questions and concerns were answered to satisfaction.
' ' spoke to patient's son, in the presence of patient's nurse, inside patient's room on 10/01/23. All questions and concerns were answered to satisfaction.
Anticipated Discharge: 24 - 48 hours
Subjective/Interval History
-
Date of Service: October 03, 2023
Generally feels better, denies sob
Objective Data
-
Labs:
Laboratory Results
10/03/23 10/03/23
04:11 04:12
WBC 13.2 H
Hgb 14.1
Hct 42.8
Plt Count 235
Sodium 134 L
Potassium 4.9
Chloride 97 L
Carbon Dioxide 31 H
BUN 68 H
Creatinine 1.4 H
Glucose 108 H
Calcium 9.4
Total Bilirubin 0.9
AST 44 H
ALT 49 H
Alkaline Phosphatase 94
Vital Signs:
Vital Signs
Temp Pulse Resp BP Pulse Ox
98.1 F 79 16 147/77 98
10/03/23 07:05 10/03/23 07:05 10/03/23 07:05 10/03/23 07:05 10/03/23 07:05
I&O
10/02/23 10/03/23 10/04/23
06:59 06:59 06:59
Intake Total 1920 / 1920 1260 / 1260
Output Total 450 / 450 1100 / 1100
Balance 1470 / 1470 160 / 160
Review of Systems
-
History Source: Patient and Coordinated Provider
Constitutional: Denies Fever
EENT: Reports No Symptoms Reported
Respiratory: Denies Cough or Trouble Breathing
Cardiac: Reports No Symptoms; Denies Chest Pain
Abdomen/GI: Reports No Symptoms; Denies Abdominal Pain
Genitourinary: Reports No Symptoms
Musculoskeletal: Reports No Symptoms
Physical Exam
-
General: Well Developed, Well Nourished and No Apparent Distress
HEENT: Normocephalic, Atraumatic and Moist Mucous Membranes
Respiratory: Rales (bibasilar fine rales less prominent, no wheeze, cough on forced expiration)
Cardiac: Regular Rhythm and S1/S2
GI: Soft, Nontender and Nondistended
Musculoskeletal: No Clubbing, No Cyanosis and No Edema
Neuro: Awake, Alert and Oriented
[2023-10-03] MEDS: LASIX 20 MG IV (08:18)
[2023-10-03] MEDS: ABILIFY 2 MG PO (08:19)
[2023-10-03] MEDS: LOW STRENGTH ASPIRIN 81 MG PO (08:19)
[2023-10-03] MEDS: EFFEXOR 75 MG PO (08:20)
[2023-10-03] MEDS: COREG 3.125 MG PO (08:20)
[2023-10-03] MEDS: DECADRON 6 MG PO (08:20)
--- NOTE | 2023-10-03 12:04 | CM ---
Addendum entered by Aviva Kwon 10/03/23 13:01:
Ambulance transport 4-4:30pm.
Original Note:
Patient has been medically cleared for discharge to [facility] for skilled services and rehab. Auth has been obtained by Leatha at [facility]. Auth # [id number]. Nurse to nurse report # [phone], .
notified. Ambulance transport to be scheduled.
--- NOTE | 2023-10-03 12:19 | W.PN.CARDCBS ---
Today's Communication / Plan
-
Stable for discharge from cardiology perspective
Outpatient follow-up arranged
Impression / Plan
-
Impression:
Acute respiratory failure requiring intubation, status post extubation 09/28/2023
COVID-pneumonia
Acute HFrEF, EF now 30-35% had been normal February 2023
Hypotension requiring pressors�resolved
Acute on chronic renal failure.
Hypothyroidism
Non-ST segment elevation myocardial infarction
Echo February 2023, EF 55 to 60% with mild LVH, mild MR, mild aortic stenosis
Echo 09/25/2023: EF 30-35%, global hypokinesis, mild to moderate MR, mild TR, pulmonary artery systolic pressure is 36 mmHg, pleural effusion seen
Plan:
Volume status improved with IV lasix
No longer requiring supplemental O2
Agree with switching to PO
Should monitor weight as an outpatient
Decreased LV function on TTE here
Discussed with patient and son, would recommend outpatient ischemic evaluation, potentially pharmacologic nuclear stress test as well as repeat TTE in approx 3 months
Cont aspirin, statin, beta-galen
JUAN PABLO/ARB/ARNI and MRA not started due to JUAN, tentative plan to add as an outpatient
Stable for discharge from cardiac perspective
Outpatient follow up arranged
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
Subjective
Date of Service: October 03, 2023
NAOE. Resting comfortably OOB to chair. No CP or SOB.
Objective
Labs:
10/03/23 04:12
10/03/23 04:11
Labs
Hgb 14.1 g/dL (12.0-16.0) 10/03/23 04:12
Hct 42.8 % (37.0-47.0) 10/03/23 04:12
Plt Count 235 10^3/uL (130-400) 10/03/23 04:12
PT 13.4 Sec (11.4-14.6) 09/22/23 22:10
INR 1.00 09/22/23 22:10
APTT 23.6 Sec (23.4-35.0) 09/22/23 22:10
Sodium 134 mmol/L (135-145) L 10/03/23 04:11
Potassium 4.9 mmol/L (3.5-5.1) 10/03/23 04:11
BUN 68 mg/dl (7-17) H 10/03/23 04:11
Creatinine 1.4 mg/dL (0.6-1.0) H 10/03/23 04:11
Glucose 108 mg/dl (70-99) H 10/03/23 04:11
Vital Signs and I&O:
Vital Signs
Temp Pulse Resp BP Pulse Ox
98.1 F 79 16 147/77 98
10/03/23 07:05 10/03/23 08:20 10/03/23 07:05 10/03/23 08:20 10/03/23 08:00
Vital Signs
Temp Pulse Resp BP Pulse Ox
98.1 F 79 16 147/77 98
10/03/23 07:05 10/03/23 08:20 10/03/23 07:05 10/03/23 08:20 10/03/23 08:00
Intake & Output
10/01/23 10/02/23 10/03/23 10/04/23
06:59 06:59 06:59 06:59
Intake Total 940 / 940 1920 / 1920 1260 / 1260
Output Total 1150 / 1150 450 / 450 1100 / 1100
Balance -210 / -210 1470 / 1470 160 / 160
Physical Exam
Physical Exam
Gen: NAD, AA, OOB to chair
HEENT: NC/AT, sclera anicteric
Neck: No JVD
CV: RRR, NL s1/s2
Lungs: No increased WOB on RA
Abd: S/ND
Ext: No LE edema
Skin: Warm, dry
Neuro: Non-focal
[2023-10-03 12:40] LABS: Glucose - Point of Care 124 mg/dl (70-99)
--- NOTE | 2023-10-03 13:29 | W.DS.TRANS ---
DC Summary - Account Services Associate
-
Discharge Instructions:
Discharge Diagnosis/Procedures Acute Hypoxic Respiratory Failure, Covid
Diet Low Sodium
Activity With assistance
Driving Restrictions No driving
Bathing Restrictions None
Blood Work CBC, CMP in 1 week
Instructions:
Stand-Alone Forms:
Changes to Home Medications: Yes
Discharge Medications:
DC Medications w/original date entered in [employer]
atorvastatin 20 mg tablet 20 mg PO QPM High cholesterol 03/11/21
aripiprazole 2 mg tablet 2 mg PO HS Mental Health/Anxiety 09/22/23
furosemide 20 mg tablet (Lasix) 20 mg PO DAILY Fluid Retention/Swelling 09/22/23
levothyroxine 137 mcg tablet (Synthroid) 137 mcg PO DAILY Thyroid 09/22/23
potassium chloride 10 mEq tablet,extended release 10 meq PO DAILY Supplement 09/22/23
venlafaxine 150 mg capsule,extended release 24 hr (Effexor XR) 450 mg PO DAILY Mental Health/Anxiety 09/22/23
aspirin 81 mg chewable tablet (Children's Aspirin) 81 mg PO DAILY #0 tabs 10/03/23
carvedilol 3.125 mg tablet 3.125 mg PO BID #0 tabs 10/03/23
Home Medication Changes
Aspirin and Coreg added
Norvasc stopped
Pending Results: No
[2023-10-03 15:13] VITALS: BP 136/74
== END 2023-10-03 16:13 | DRG 870 ==
LOC: 2 NORTH 00:21
PROVIDERS: Hospitalist; Internal Medicine Pulmonary Disease; Nurse Practitioner Family; Nurse Practitioner Primary Care; Student in an Organized Health Care Education/Training Program; ADMITTING PHYSICIAN Hospitalist; ATTENDING PHYSICIAN Internal Medicine; CONSULT PHYSICIAN Internal Medicine Cardiovascular Disease; CONSULT PHYSICIAN Internal Medicine Infectious Disease; EMERGENCY PHYSICIAN Student in an Organized Health Care Education/Training Program; FAMILY PHYSICIAN Internal Medicine Geriatric Medicine; OTHER PHYSICIAN Internal Medicine Critical Care Medicine
PROC: 5A09357 Assistance with Respiratory Ventilation, Less than 24 Consecutive Hours, Continuous Positive Airway Pressure (ICD-10-PCS; 2023-09-22)
PROC: 0BH17EZ Insertion of Endotracheal Airway into Trachea, Via Natural or Artificial Opening (ICD-10-PCS; 2023-09-22)
PROC: 5A1955Z Respiratory Ventilation, Greater than 96 Consecutive Hours (ICD-10-PCS; 2023-09-22)
PROC: XW033E5 Introduction of Remdesivir Anti-infective into Peripheral Vein, Percutaneous Approach, New Technology Group 5 (ICD-10-PCS; 2023-09-23)
PROC: 02HV33Z Insertion of Infusion Device into Superior Vena Cava, Percutaneous Approach (ICD-10-PCS; 2023-09-25)
DX: A41.89 Other specified sepsis (principal); I21.A1 Myocardial infarction type 2; J96.01 Acute respiratory failure with hypoxia; U07.1 COVID-19; J12.82 Pneumonia due to coronavirus disease 2019; J15.5 Pneumonia due to Escherichia coli; J15.212 Pneumonia due to Methicillin resistant Staphylococcus aureus; J96.02 Acute respiratory failure with hypercapnia; I50.21 Acute systolic (congestive) heart failure; I16.1 Hypertensive emergency; E87.20 Acidosis, unspecified; N17.9 Acute kidney failure, unspecified; I13.0 Hypertensive heart and chronic kidney disease with heart failure and stage 1 through stage 4 chronic kidney disease, or unspecified chronic kidney disease; E03.9 Hypothyroidism, unspecified; F32.A Depression, unspecified; F41.9 Anxiety disorder, unspecified; E66.9 Obesity, unspecified; Z68.37 Body mass index [BMI] 37.0-37.9, adult; Z66 Do not resuscitate; E78.00 Pure hypercholesterolemia, unspecified; K58.9 Irritable bowel syndrome, unspecified; N18.9 Chronic kidney disease, unspecified; I08.0 Rheumatic disorders of both mitral and aortic valves; Z87.891 Personal history of nicotine dependence
CPT/HCPCS: 31500; 36600; 51702; 71045; 74018; 80048; 80053; 80061; 80202; 82248; 82570; 82805; 82962; 83036; 83605; 83735; 83880; 84100; 84145; 84300; 84439; 84443; 84478; 84484; 85025; 85027; 85610; 85730; 86140; 87040; 87070; 87077; 87147; 87186; 87205; 87449; 87502; 87807; 87811; 87899; 92526; 92610; 93005; 93306; 94002; 94003; 94644; 94660; 96365; 96367; 96375; 97163; 97530; 97535; 99291; J0248

== ENCOUNTER → 2023-12-12 14:36 | Outpatient (REF) | payer OTHER, SELFPAY | LOC: DHCBS HW 14:36 | PROVIDERS: ATTENDING PHYSICIAN Internal Medicine Cardiovascular Disease; FAMILY PHYSICIAN Internal Medicine Geriatric Medicine | DX: I42.9 Cardiomyopathy, unspecified (principal) | CPT/HCPCS: 93306 ==

== ENCOUNTER 2024-03-19 09:53 | Inpatient (IN) | payer OTHER, SELFPAY ==
[2024-03-18] VITALS (11 sets, daily range): BP systolic 146–178; BP diastolic 87–116; BMI 38.6; BMI 38.0
--- NOTE | 2024-03-18 15:26 | ED.GENMED ---
History of Present Illness
<Mario John PA-C - Last Filed: 03/18/24 16:51>
General
Chief Complaint: Breathing Problem
Source: patient and family
Time Seen by Provider: 03/18/24 15:18
History of Present Illness
History of Present Illness:
84 year old female with PMH of HTN, HLD, CHF, anxiety presenting to the emergency department at the request of her PCP for evaluation of reported shortness of breath since this morning and feeling anxious. Patient reports she ran out of her lasix
this past Monday and has been unable to take this since, she normally takes 20mg PO daily. At her PCP office today it was noted that patient seemed short of breath and also noted to be tachycardic. Patient stating her weight is usually anywhere
between 220-227 pounds and she was 225 at the office today. She also notes feeling anxious about being sent to the ED and did not take her xanax today for unknown reasons. Patient denies any fevers, chills, rigors, abdominal pain, chest pain,
palpitations, diaphoresis, worsening peripheral edema, or any other concerns presently.
Past History
<Mario John PA-C - Last Filed: 03/18/24 16:51>
Past History
ED Past Medical History: CHF, HTN, Hypercholesterolemia and Psychiatric
ED Past Surgical History: and Orthopedic (R hip surg.)
Social History
Tobacco: Non-smoker
Alcohol: None
Drug: None
Personal:
Living: alone
Review of Systems
<Mario John PA-C - Last Filed: 03/18/24 16:51>
Review of Systems
All Other Systems: ROS reviewed and negative except as documented in HPI and ROS
Phy Exam
<Mario John PA-C - Last Filed: 03/18/24 16:51>
Physical Exam
Physical Exam:
GENERAL: Alert , in no apparent distress
EYE: clear conjunctiva
NECK: Supple
ENT: o/p clr, mmm.
CARDIAC: Borderline tachycardic rate and rhythm
LUNGS: Clear breath sounds bilaterally, no acute respiratory distress, no wheezes/rales/rhonchi
ABDOMEN: Soft, without focal tenderness, no r/g, no cvat
NEUROLOGICAL: Alert and oriented
SKIN: Warm and dry, skin intact.
MUSCULOSKELETAL: trace ankle edema, non-pitting, well perfused.
PSYCH: Normal and appropriate interaction.
Scores
<Mario John PA-C - Last Filed: 03/18/24 16:51>
Heart Failure Risk
Heart Failure Risk Score: Yes
History of Stroke or TIA: No
History of intubation for respiratory distress: No
Heart rate on ED arrival >/= 110: Yes
SaO2 <90% on arrival on room air: No
HR >/=110 during 3min walk test (or too ill to perform test): No
ECG has acute ischemic changes: No
Heart Score for Chest Pain Patients
STEMI patient?: Not applicable
Withdrawal Assessment of Alcohol
Withdrawal Assessment Completed?: Not applicable
<Maria Teresa Hurtado, LIVE STUDY MANAGER - Last Filed: 03/18/24 20:34>
Heart Failure Risk
Urea >/=12mmol/L (BUN 33.6mg/dL): No
Serum CO2>/=35mmol/L: No
Troponin I or T elevated to [place] Level (0.4mg/dL): No
NT-proBNP >/=5,000ng/L (5,000pg/ml): Yes
HF Risk Score: 1
Admission Status: MEDIUM RISK 5.1% Consider observation or discharge to home with homecare & f/u visit to PCP/Truck Driver Salesperson, or SNF for treatment
Course
<Mario John PA-C - Last Filed: 03/18/24 16:51>
Orders/Labs/Results
Orders:
Orders
03/18/24 14:26
EKG [Electrocardiogram (*1)] Urgent
Reason for Study: Tachycardia
EKG- Treatment ONCE
03/18/24 Dinner
Cholesterol Lowering
At Your Request: Full Participation
Cholesterol Lowering: Sodium, 2 Gram
03/18/24 15:19
CR Chest - 2 Views Urgent
Comment:
Reason For Exam: SOB, edema
03/18/24 15:25
Alprazolam [Xanax] 1 mg PO NOW STA
Furosemide [Lasix] 40 mg IV NOW STA
03/18/24 15:46
Furosemide [Lasix] 40 mg PO NOW STA
03/18/24 16:05
Basic Metabolic Panel Urgent
Complete Blood Count/With Diff Urgent
Magnesium Urgent
Comment: ADD ON
NT-proBNP Urgent
Troponin I Urgent
Comment: ADD ON
03/18/24 16:43
Add On- LAB Urgent
Tests Added?: Magnesium, Troponin
03/18/24 17:13
Admit/Transfer Patient As Directed
Co-Sign Provider:
Level of Care: Observation services
Assign to:: Telemetry
Physician / Group: tiffanie
Diagnosis: nonsustained vtach
Reason for Telemetry: Arrhythmia
Date to Stop Telemetry: 03/21/24
Time to Stop Telemetry: 11:00
03/18/24 17:14
Code Status As Directed
Resuscitation Status: Do not resuscitate
Reached after discussion with pt or family/Healthcare POA: Yes
DNR Bracelet Application ONCE
03/18/24 18:19
Atorvastatin [Lipitor] 20 mg PO QPM
03/18/24 18:19
Case Management Consult ONCE
Case Management Consult: Other
Comment: [facility] walk[facility] psychological [facility] information
Activity As Directed
Activity Level: As Tolerated
Vital Signs As Directed
Frequency: Per unit guidelines
DX Deep Vein Thrombosis Video Routine
03/18/24 18:45
Complete Blood Count/No Diff Routine
03/18/24 20:00
Carvedilol [Coreg] 6.25 mg PO BID
Heparin 5,000 units SC Q12
Venlafaxine Extended Release [Effexor Xr] 150 mg PO BID
03/19/24 06:00
Basic Metabolic Panel IN AM
Levothyroxine [Synthroid] 137 mcg PO DAILY @ 0600
03/19/24 08:00
Aspirin Chewable [Low Strength Aspirin] 81 mg PO DAILY
Furosemide [Lasix] 60 mg PO DAILY
Multivitamin [Theragran] 1 tablet PO DAILY
Venlafaxine Extended Release [Effexor Xr] 75 mg PO DAILY
03/21/24 11:00
DC Protocol for Telemetry ONCE
Abnormal Lab Results
03/18/24
16:05
MPV 11.4 H fL
(7.4-10.4)
Absolute Monos (auto) 0.7 H 10^3/uL
(0.1-0.6)
Lymphocytes % 18.4 L %
(20.5-51.1)
Eosinophils % 6.2 H %
(0-6)
BUN 25 H mg/dl
(7-17)
Creatinine 1.2 H mg/dL
(0.6-1.0)
03/18/24 16:05
03/18/24 16:05
Vital Signs
Initial and Last Documented VS:
Initial Vital Signs
Temp Pulse Resp BP Pulse Ox
98.1 F 111 20 178/116 93
03/18/24 14:22 03/18/24 14:22 03/18/24 14:22 03/18/24 14:22 03/18/24 14:22
Last Documented Vital Signs
Temp Pulse Resp BP Pulse Ox
98 F 108 18 161/94 94
03/18/24 19:30 03/18/24 19:30 03/18/24 19:30 03/18/24 19:30 03/18/24 19:30
<Maria Teresa Hurtado NP - Last Filed: 03/18/24 20:34>
Orders/Labs/Results
Orders:
Orders
03/18/24 14:26
EKG [Electrocardiogram (*1)] Urgent
Reason for Study: Tachycardia
EKG- Treatment ONCE
03/18/24 Dinner
Cholesterol Lowering
At Your Request: Full Participation
Cholesterol Lowering: Sodium, 2 Gram
03/18/24 15:19
CR Chest - 2 Views Urgent
Comment:
Reason For Exam: SOB, edema
03/18/24 15:25
Alprazolam [Xanax] 1 mg PO NOW STA
Furosemide [Lasix] 40 mg IV NOW STA
03/18/24 15:46
Furosemide [Lasix] 40 mg PO NOW STA
03/18/24 16:05
Basic Metabolic Panel Urgent
Complete Blood Count/With Diff Urgent
Magnesium Urgent
Comment: ADD ON
NT-proBNP Urgent
Troponin I Urgent
Comment: ADD ON
03/18/24 16:43
Add On- LAB Urgent
Tests Added?: Magnesium, Troponin
03/18/24 17:13
Admit/Transfer Patient As Directed
Co-Sign Provider:
Level of Care: Observation services
Assign to:: Telemetry
Physician / Group: tiffanie
Diagnosis: nonsustained vtach
Reason for Telemetry: Arrhythmia
Date to Stop Telemetry: 03/21/24
Time to Stop Telemetry: 11:00
03/18/24 17:14
Code Status As Directed
Resuscitation Status: Do not resuscitate
Reached after discussion with pt or family/Healthcare POA: Yes
DNR Bracelet Application ONCE
03/18/24 18:19
Atorvastatin [Lipitor] 20 mg PO QPM
03/18/24 18:19
Case Management Consult ONCE
Case Management Consult: Other
Comment: stefanie walker [facility] psychological services information
Activity As Directed
Activity Level: As Tolerated
Vital Signs As Directed
Frequency: Per unit guidelines
DX Deep Vein Thrombosis Video Routine
03/18/24 18:45
Complete Blood Count/No Diff Routine
03/18/24 20:00
Carvedilol [Coreg] 6.25 mg PO BID
Heparin 5,000 units SC Q12
Venlafaxine Extended Release [Effexor Xr] 150 mg PO BID
03/19/24 06:00
Basic Metabolic Panel IN AM
Levothyroxine [Synthroid] 137 mcg PO DAILY @ 0600
03/19/24 08:00
Aspirin Chewable [Low Strength Aspirin] 81 mg PO DAILY
Furosemide [Lasix] 60 mg PO DAILY
Multivitamin [Theragran] 1 tablet PO DAILY
Venlafaxine Extended Release [Effexor Xr] 75 mg PO DAILY
03/21/24 11:00
DC Protocol for Telemetry ONCE
Abnormal Lab Results
03/18/24
16:05
MPV 11.4 H fL
(7.4-10.4)
Absolute Monos (auto) 0.7 H 10^3/uL
(0.1-0.6)
Lymphocytes % 18.4 L %
(20.5-51.1)
Eosinophils % 6.2 H %
(0-6)
BUN 25 H mg/dl
(7-17)
Creatinine 1.2 H mg/dL
(0.6-1.0)
03/18/24 16:05
03/18/24 16:05
Vital Signs
Initial and Last Documented VS:
Initial Vital Signs
Temp Pulse Resp BP Pulse Ox
98.1 F 111 20 178/116 93
03/18/24 14:22 03/18/24 14:22 03/18/24 14:22 03/18/24 14:22 03/18/24 14:22
Last Documented Vital Signs
Temp Pulse Resp BP Pulse Ox
98 F 108 18 161/94 94
03/18/24 19:30 03/18/24 19:30 03/18/24 19:30 03/18/24 19:30 03/18/24 19:30
<Mario John PA-C - Last Filed: 03/18/24 16:51>
MDM/Problems Addressed
Differential Diagnosis Includes:
medication non-compliance, mild CHF exacerbation, JUAN, PE considered given tachycardia and reported SOB however no cough, pleurisy or chest pain
MDM/Problems Addressed:
84 year old female coming to ED from PCP office for SOB. Noted to have missed 3 days of lasix. Weight is at baseline. Lungs CTA on exam. Patient in NAD. Will check labs, CXR. Treating with 40mg lasix IV and giving patient her dose of xanax for her
anxiety as she did not take this medication today. Otherwise stable
Chronic conditions affecting care: Psychiatric illness
Acute Exacerbation and/or Progression of Chronic Illness: Other (CHF)
<Maria Teresa Hurtado, LIVE STUDY MANAGER - Last Filed: 03/18/24 20:34>
MDM/Problems Addressed
MDM/Problems Addressed:
84 year old female coming to ED from PCP office for SOB. Noted to have missed 3 days of lasix. Weight is at baseline. Lungs CTA on exam. Patient in NAD. Will check labs, CXR. Treating with 40mg lasix IV and giving patient her dose of xanax for her
anxiety as she did not take this medication today. Otherwise stable
4:30 PM
Patient was initially discharged to go to crisis when RN approached me stating the patient just had a 6-second run of V. tach.
Magnesium and troponin added to her blood work
Carlos John texted Hospitalist and Truck Driver Salesperson
<Mario John PA-C - Last Filed: 03/18/24 16:51>
*Pulse Oximetry
Patient hypoxic: no
*EKG
Interpreted by ED Provider?: Yes
Comparison EKG: no changes
Heart Rate: 109
Rate: tachycardiac
Rhythm: sinus and PAC's
[place]: normal axis
Ischemia: no ischemia
*Director Of Leadership Development Interpretation
Rate: tachycardiac
Rhythm: sinus and PAC's
Data Reviewed
Review of Other/Old Records Reveals: Labs and Records
Source: patient and physician
<Maria Teresa Hurtado NP - Last Filed: 03/18/24 20:34>
*Critical Care Note
Total Time (30-74mins, 75-104mins- exclusive of procedures): Not Applicable
<Mario John PA-C - Last Filed: 03/18/24 16:51>
Patient Management
Discussion with other providers: Hospitalist and PCP
Escalation/DeEscalation of care consider admission/obs:
PCP notified of ED findings as well as plan to send to [facility]. Confirmed that patient did get Rx refill of lasix and will be able to reinitiate this medication. She remains stable. BP and HR improved prior to discharge.
After patient was dispositioned to [facility] bed while still in the emergency department it was noted on telemetry she had an 8 beat run of ventricular tachycardia and went back into a normal sinus rhythm following this. Given her
reported initial symptoms of shortness of breath combined with anxiousness this could be a potential symptom for cardiac dysrhythmia. Given her age combined with chronic medical conditions and ventricular tachycardia found on telemetry will admit
for further monitoring. Cardiology notified and states nothing to do at this time but continue to monitor. We added on a magnesium and troponin to patient's blood work. Hospitalist team notified and accepts for continued evaluation and treatment.
ED Attending Note
<Mario John PA-C - Last Filed: 03/18/24 16:51>
-
Portions of this chart may have been created with voice recognition software.� Occasional wrong word or��sound alike� substitutions may have occurred due to the inherent limitations of voice recognition software.
Discharge Plan
Departure
Patient Disposition: Admit
Date of Disposition: 03/18/24
Time of Disposition: 16:48
Presentation/result/management discussed w/ accepting MD/DO: Hospitalist
Patient with high blood pressure during this ER visit?: Yes
Discharge Problem:
Anxiousness, Ventricular tachycardia, CHF (congestive heart failure)
Interventions
Interventions:
*Risk Screen - Suicide Last Done: 03/18/24 18:32
*General Assessment Last Done: 03/18/24 14:22
*Neglect/Abuse Screening Last Done: 03/18/24 14:22
ED- Fall Risk Assessment Last Done: 03/18/24 16:07
*ED COVID-19 Vaccine History Last Done: 03/18/24 14:22
*Nursing Disposition Last Done: 03/18/24 18:22
ED- Cardiac Assessment Last Done: 03/18/24 16:08
ED- Pulmonary Assessment Last Done: 03/18/24 16:08
Discharge Date and Time
Discharge Date/Time: 03/18/24 18:23
--- NOTE | 2024-03-18 15:27 | EDRN ---
Eunice Jonh PA in room w/ pt at this time.
--- NOTE | 2024-03-18 15:43 | EDRN ---
Pt's son just stated to me that pt's PCP had suggested pt speak w/ crisis for her depression and anxiety.
[2024-03-18] MEDS: LASIX 40 MG PO (15:54)
[2024-03-18] MEDS: XANAX 1 MG PO (15:54)
[2024-03-18 16:12] LABS: % Basophils 1.3 % (0-2); % Eosinophils 6.2 % (0-6); % Immature Granulocytes 0.5 % (0-0.5); % Lymphocytes 18.4 % (20.5-51.1); % Neutrophils 64.6 % (42.2-75.2); Absolute Basophils 0.1 10^3/uL (0-0.2); Absolute Eosinophils 0.5 10^3/uL (0-0.7); Absolute Lymphocytes 1.5 10^3/uL (1.2-3.4); Absolute Monocytes 0.7 10^3/uL (0.1-0.6); Absolute Neutrophils 5.1 10^3/uL (1.4-6.5); Hematocrit 43.6 % (37.0-47.0); Hemoglobin 14.4 g/dL (12.0-16.0); Mean Corpuscular Hgb 29.9 pg (27.0-31.0); Mean Corpuscular Volume 90.6 fL (81.0-99.0); Mean Platelet Volume 11.4 fL (7.4-10.4); Nucleated Red Blood Cells % 0 %; Platelet Count 252 10^3/uL (130-400); Red Blood Cell Count 4.81 10^6/uL (4.20-5.40); Red Cell Dist. Width 14.2 % (11.5-14.5); White Blood Cell Count 7.9 10^3/uL (4.8-10.8)
--- NOTE | 2024-03-18 16:20 | EDRN ---
Eunice John PA in to see pt.
--- NOTE | 2024-03-18 16:25 | EDRN ---
Pt's tests normal and per Eunice CEBALLOS pt is to be discharged to crisis at this time.
[2024-03-18 16:31] LABS: NT-proBNP 6720 pg/ml
[2024-03-18 16:35] LABS: Blood Urea Nitrogen 25 mg/dl (7-17); Calcium 9.7 mg/dl (8.4-10.2); Carbon Dioxide 27 mmol/L (22-30); Chloride 105 mmol/L (98-107); Estimated Creatinine Clearance 42 ml/min; Glucose 99 mg/dl (70-99); Potassium 4.6 mmol/L (3.5-5.1); Sodium 139 mmol/L (135-145); eGFR 45.19
--- NOTE | 2024-03-18 16:37 | EDRN ---
Pt had 8 beat episode of VT. THis RN informed Jaziel DALTON as Eunice CEBALLOS had just left and she contacted him and he has returned to see pt and strip.
--- NOTE | 2024-03-18 16:52 | EDRN ---
Eunice John PA in room w/ pt and informing pt of arrhythmia and need to admit pt at this time.
--- NOTE | 2024-03-18 17:07 | EDRN ---
Dr. Barakat in room w/ pt.
--- NOTE | 2024-03-18 17:11 | EDRN ---
healthcare social worker Che is presently in room w/ pt to discuss community resources available for anxiety and depression at this time and give paperwork on these resources.
--- NOTE | 2024-03-18 17:16 | HPS.HSE ---
Addendum entered and electronically signed by Maximo Swanson MD 03/18/24 17:20:
Patient given 40 IV lasix in ER, continue 60 oral daily.
Original Note:
Family Physician
-
Family Physician: Red Etienne
Chief Complaint
-
anxiety
History of Present Illness
84-year-old female past medical history of HFrEF, anxiety/depression, hypothyroidism, CKD, presenting with persistent anxiety. She was sent in by her primary care physician. She ran out of her Lasix this past Monday and has not been taking since
then. At primary care office she seemed short of breath and tachycardic. Patient herself denies any shortness of breath, chest pain, palpitations, nausea or vomiting, increased lower extremity edema or weight gain, fevers or chills. Her weight is
normally between 220 and 227 pounds and she was 225 pounds at the office today.
Her Xanax was recently increased from twice a day to 3 times a day by her primary care. She does see a psychiatrist.
Patient was going to be discharged however she developed 8 beat run of V. tach and then returned to normal sinus rhythm after.
She denies smoking or alcohol use.
Medical History
Past Medical History
Past Medical History: Reports Other (HFrEF, anxiety/depression, hypothyroidism, CKD)
Past Surgical History: Reports None
Social History
Tobacco: Non-smoker
Alcohol: None
Drug: None
Family History
Family History: Not pertinent
Allergies / Home Medications
Allergies reflects when Allergies were last updated in [employer].
Home Medications with original date entered in [employer]
Allergy/Medication List:
Allergies
Allergy/AdvReac Type Severity Reaction Status Date / Time
No Known Allergies Allergy Verified 03/18/24 14:22
Home Medications
atorvastatin 20 mg tablet 20 mg PO QPM High cholesterol 07/15/21
furosemide 20 mg tablet (Lasix) 60 mg PO DAILY Fluid Retention/Swelling 09/22/23
levothyroxine 137 mcg tablet (Synthroid) 137 mcg PO DAILY Thyroid 09/22/23
venlafaxine 150 mg capsule,extended release 24 hr (Effexor XR) 150 mg PO BID Mental Health/Anxiety 09/22/23
aspirin 81 mg chewable tablet (Children's Aspirin) 81 mg PO DAILY #0 tabs 10/03/23
alprazolam 0.5 mg tablet 0.5 mg PO BID 03/18/24
carvedilol 6.25 mg tablet 6.25 mg PO BID 03/18/24
multivitamin with minerals-folic acid 80 mcg chewable tablet (Centrum Adult 50 Plus) 1 tab PO DAILY 03/18/24
venlafaxine 75 mg capsule,extended release 24 hr 75 mg PO DAILY 03/18/24
Review of Systems
-
History Source: Patient
A 12 point ROS was completed and negative except as noted: Yes
Constitutional: Reports No Symptoms
EENT: Reports No Symptoms
Respiratory: Reports No Symptoms
Cardiac: Reports No Symptoms
Abdomen/GI: Reports No Symptoms
: Reports No Symptoms
Musculoskeletal: Reports No Symptoms
Skin: Reports No Symptoms
Neurological: Reports No Symptoms
Endocrine: Reports No Symptoms
Hematologic/Lymphatic: Reports No Symptoms
Psych: Reports No Symptoms
Physical Exam
Vital Signs
Vital Signs
Temp Pulse Resp BP Pulse Ox
98.1 F 96 25 164/92 92
03/18/24 14:22 03/18/24 17:05 03/18/24 17:05 03/18/24 17:05 03/18/24 17:00
Physical Exam
General: Well Developed, Well Nourished and No Apparent Distress
HEENT: NormoCephalic, Moist mucous membranes and Atraumatic
Respiratory: Clear
Cardiac: S1/S2 and Regular Rhythm; No Murmur or Rub
GI: Soft, Non Tender, Non Distended and Normal Bowel Sounds; No Organomegaly
Rectal: Deferred by Provider
Musculoskeletal: No Clubbing, No Cyanosis and No Edema
Skin: No Rash
Neuro: Nonfocal/grossly intact
Laboratory Results
-
03/18/24 16:05
03/18/24 16:05
Data Reviewed
-
Lab Data: Labs Reviewed by me
Old Records: Reviewed
Impression/Plan
-
IMPRESSION:
PLAN:
# Nonsustained V. tach
-8 beats
-EKG shows sinus tachycardia with PACs
-Magnesium pending
-Cardiology recommended just observation overnight
-Telemetry monitoring
#Anxiety/depression
-Patient denies any shortness of breath or palpitations
-Continue alprazolam
-Continue venlafaxine
-patient requesting [facility] outpatient psychological services, case loader operator consulted
Coronary artery disease
-Continue aspirin, statin
Chronic HFrEF
-Patient not in heart failure
-Cardiac BNP of 6700
-Chest x-ray without any abnormality
-Continue Coreg
Chronic kidney disease
-Renal function at baseline
Hypothyroidism
-Continue levothyroxine
DNR/DNI
DVT prophylaxis�heparin
Cardiac diet
[2024-03-18 17:21] LABS: Magnesium 2.3 mg/dl (1.6-2.3)
[2024-03-18 17:33] LABS: Troponin I < 0.012 ng/ml
--- NOTE | 2024-03-18 18:01 | EDRN ---
Pt voiced concern about her Coreg as she did not take her AM dose. THis RN just texted pt's concern about getting a dose tonight at this time.
--- NOTE | 2024-03-18 18:10 | EDRN ---
Dr. Barakat placed order for 20:00 coreg post TT.
[2024-03-18 18:50] LABS: Hematocrit 44.3 % (37.0-47.0); Mean Corp Hgb Conc. 33.9 g/dL (33.0-37.0); Mean Corpuscular Hgb 30.5 pg (27.0-31.0); Mean Platelet Volume 11.4 fL (7.4-10.4); Platelet Count 270 10^3/uL (130-400); Red Blood Cell Count 4.92 10^6/uL (4.20-5.40); Red Cell Dist. Width 14.2 % (11.5-14.5)
[2024-03-18] MEDS: HEPARIN 5000 UNITS SC (19:29)
[2024-03-18] MEDS: COREG 6.25 MG PO (19:29)
[2024-03-18] MEDS: LIPITOR 20 MG PO (19:29)
[2024-03-18] MEDS: EFFEXOR XR 150 MG PO (20:15)
--- NOTE | 2024-03-19 00:14 | PTCARENOTE ---
sinus pvc's- no vtach-
[2024-03-19 03:01] VITALS: BP 158/86
[2024-03-19] MEDS: SYNTHROID 137 MCG PO (05:29)
[2024-03-19 06:00] VITALS: BMI 37.4
--- NOTE | 2024-03-19 06:04 | PTCARENOTE ---
no runs of vtach over night- sinus pvc's-
[2024-03-19 06:34] LABS: Blood Urea Nitrogen 27 mg/dl (7-17); Calcium 9.3 mg/dl (8.4-10.2); Carbon Dioxide 27 mmol/L (22-30); Chloride 106 mmol/L (98-107); Estimated Creatinine Clearance 38 ml/min; Glucose 94 mg/dl (70-99); Potassium 4.1 mmol/L (3.5-5.1); Sodium 140 mmol/L (135-145); eGFR 41.06
[2024-03-19 07:30] VITALS: BP 161/93
--- NOTE | 2024-03-19 07:42 | CON.CAR ---
Addendum entered and electronically signed by Serafin Loyola MD 03/19/24 12:28:
I saw and examined the patient.
The USER EXPERIENCE MANAGER or PA's note was reviewed and I agree with the note.
Comment: General: Well developed, well nourished in NAD.
Neck: Supple, no JVD, HJR, carotids +2 B/L, no bruits bilaterally.
Heart: Non displaced PMI, RRR, no murmurs, No S3, S4, no rubs.
Lungs: Scattered rhonchi
Extremities: No clubbing, cyanosis or edema bilaterally.
Neuro: Grossly nonfocal, awake, alert and oriented x3.
Eulalia has a history of cardiomyopathy with ejection fraction of 40-45%, chronic diastolic CHF, CKD 3B, hypertension, lipidemia, anxiety, carotid stenosis, hypothyroidism. She presents with shortness of breath. She is found to have nonsustained V.
tach and cardiology was consulted. She is also being treated for acute diastolic CHF.
The present time she appears euvolemic. Her weight is down possibly 5 pounds since admission. Creatinine has increased slightly to 1.3 but is still within her baseline. She appears euvolemic. Continue on oral Lasix. She has brief nonsustained
V. tach. Will check echocardiogram and if relatively stable we will just increase carvedilol dose.
Original Note:
Consultation
Consultation Request
Date/Time Consultation Requested: 03/19/2024
Date/Time Consultation Performed: 03/19/2024
Requesting Provider: Dr. Banks
Performing Provider: Aleida Hernandez PA-C for Dr. Loyola
Reason for Consultation: SOB, heart failure
Medical History
-
Chief Complaint: sob
History of Present Illness:
Patient is an 84-year-old female with past medical history significant for chronic heart failure with reduced ejection fraction, hypothyroidism, anxiety/depression, CKD, hypertension and hyperlipidemia who was sent in from her primary care office on
03/18/2023 with complaints of shortness of breath and tachycardia. Patient admitted that she had ran out of her Lasix for 3 days prior to seeing her family doctor. Patient denied edema or increased weight gain. She denies shortness of breath but
admitted to feeling anxious. Her outpatient dose of Xanax was increased to 3 times a day. Chest x-ray showed no acute abnormality. proBNP was found to be elevated at 6720. EKG showed sinus tachycardia at 109 bpm. Troponin was undetectable..
She was provided IV Lasix and Xanax in emergency department. Patient was ready to be discharged however she developed 8 beats of ventricular tachycardia prompting admission. Potassium was 4.6 and magnesium was 2.3.
Biggest complaint/concern is her anxiety
PMH:
Cardiomyopathy
Chronic heart failure with reduced ejection fraction
Chronic kidney disease, stage IIIb
Hypertension
Hyperlipidemia
Anxiety depression
Carotid stenosis
Hypothyroidism
IBS/diverticulosis
Past Medical History
Past Medical History: Other (See HPI)
Past Surgical History: Orthopedic (Left hip replacement 1997 & 2009)
Social History
Tobacco: Former Smoker
Alcohol: None
Drug: None
Living: Other
Employment: Retired
Family History
Family History: Cancer and Hypertension
Allergies / Home Medications
Allergy/AdvReac Type Severity Reaction Status Date / Time
No Known Allergies Allergy Verified 03/18/24 14:22
�Medication �Instructions �Recorded �Confirmed �Type
atorvastatin 20 mg tablet 20 mg PO QPM High cholesterol 03/11/21 03/18/24 History
furosemide 20 mg tablet (Lasix) 60 mg PO DAILY Fluid 09/22/23 03/18/24 History
Retention/Swelling
levothyroxine 137 mcg tablet 137 mcg PO DAILY Thyroid 09/22/23 03/18/24 History
(Synthroid)
venlafaxine 150 mg 150 mg PO BID Mental Health/Anxiety 09/22/23 03/18/24 History
capsule,extended release 24 hr
(Effexor XR)
aspirin 81 mg chewable tablet 81 mg PO DAILY #0 tabs 10/03/23 03/18/24 Rx
(Children's Aspirin)
alprazolam 0.5 mg tablet 0.5 mg PO BID 03/18/24 03/18/24 History
carvedilol 6.25 mg tablet 6.25 mg PO BID 03/18/24 03/18/24 History
multivitamin with minerals-folic 1 tab PO DAILY 03/18/24 03/18/24 History
acid 80 mcg chewable tablet
(Centrum Adult 50 Plus)
venlafaxine 75 mg capsule,extended 75 mg PO DAILY 03/18/24 03/18/24 History
release 24 hr
Review of Systems
-
History Source: Patient
All other systems: Negative unless noted
Physical Exam
Vital Signs
Temp Pulse Resp BP Pulse Ox
98.7 F 92 18 161/93 94
03/19/24 07:30 03/19/24 07:30 03/19/24 07:30 03/19/24 07:30 03/19/24 07:30
GEN: No distress, awake, Ox3, sitting in bed
HEENT: supple, anicteric, mmm
LUNGS: CTA, no wheezes/rales, on room air
CV: Reg, S1/S2, 1/6 syst LSB, no murmur
ABD: soft, BS+, NT/ND
EXT: No edema, clubbing or cyanosis
NEURO: Gross non-focal
SKIN: No rash, warm, dry
Lab Results
03/18/24 18:45
03/19/24 05:41
Troponin I < 0.012 ng/ml 03/18/24 16:05
Kio-O-Wdqckjfqzbp Pept 6720 pg/ml 03/18/24 16:05
Physical Exam
General: Intubated
HEENT: Normocephalic, Anicteric and Other (ET tube)
Respiratory: Crackles and Rhonchi
Cardiac: S1/S2, Regular Rhythm and Murmur (09/02 syst LSB)
GI: Soft, Non Tender and Non Distended
Genito-urinary: No Costovertebral Tender
Musculoskeletal: Edema (+1 edema)
Skin: Warm and Dry
Neuro: AO x 3
Psych: Calm
Impression / Plan
-
PCP: Everett Etienne
Head Holder: Dr. Loyola
Impression:
Presents 03/18/2024 with short of breath and tachycardia
Anxiety
Brief runs of VT 4-8 beats
Acute on chronic heart failure with reduced ejection fraction, proBNP 6720
Cardiomyopathy
Chronic heart failure with reduced ejection fraction
Chronic kidney disease, stage IIIb
Hypertension
Hyperlipidemia
Anxiety depression
Carotid stenosis
Hypothyroidism
IBS/diverticulosis
12/12/2023: EF 40 to 45% with mild concentric LVH and global hypokinesis. Mild MR
Echo 09/25/2023: EF 30-35%, global hypokinesis, mild to moderate MR, mild TR, pulmonary artery systolic pressure is 36 mmHg, pleural effusion seen
Echo February 2023, EF 55 to 60% with mild LVH, mild MR, mild aortic stenosis
Plan:
-Presents 03/18/2024 with shortness of breath and tachycardia after running out of her Lasix x 3 days.
-Acute on chronic heart failure with reduced ejection fraction, proBNP 6720.
-Good response to IV diuresis weight down at least 3 pounds overnight and total 5 pounds since admission.
-Patient reports baseline weight of 220 lbs-227 lbs. Current weight is 217. Slight bump in creatinine to 1.3. Continue oral Lasix 60 mg daily.
-8 beat run of ventricular tachycardia in emergency department with stable electrolytes. Additional 4 beat run of VT overnight with short run of atrial tachycardia.
-Will increase carvedilol to 12.5 mg twice a day given arrhythmia with elevated heart rates and hypertension
-Continue to monitor on telemetry
-K4.1 will replete
-Patient has history of cardiomyopathy with EF as low as 30-35 however did improve on echo November 2023 to 40-45%. Will repeat echo
-Still complaining of feeling anxious although she looks calm in bed
HPI 03/19/2024:
Patient is an 84-year-old female with past medical history significant for chronic heart failure with reduced ejection fraction, hypothyroidism, anxiety/depression, CKD, hypertension and hyperlipidemia who was sent in from her primary care office on
03/18/2023 with complaints of shortness of breath and tachycardia. Patient admitted that she had ran out of her Lasix for 3 days prior to seeing her family doctor. Patient denied edema or increased weight gain. She denies shortness of breath but
admitted to feeling anxious. Her outpatient dose of Xanax was increased to 3 times a day. Chest x-ray showed no acute abnormality. proBNP was found to be elevated at 6720. EKG showed sinus tachycardia at 109 bpm. Troponin was undetectable..
She was provided IV Lasix and Xanax in emergency department. Patient was ready to be discharged however she developed 8 beats of ventricular tachycardia prompting admission. Potassium was 4.6 and magnesium was 2.3.
Data Reviewed
-
EKG: Report Reviewed by me, Discussed with Physician, Discussed with Nurse and Discussed with Patient
Radiology: Report Reviewed by me, Discussed with Physician, Discussed with Nurse and Discussed with Patient
Labs: Labs Reviewed by me, Discussed with Physician, Discussed with Nurse and Discussed with Patient
Old Records: Reviewed
[2024-03-19] MEDS: EFFEXOR XR 75 MG PO (07:59)
[2024-03-19] MEDS: HEPARIN 5000 UNITS SC ×2 (08:00→19:55)
[2024-03-19] MEDS: LASIX 60 MG PO (08:00)
[2024-03-19] MEDS: LOW STRENGTH ASPIRIN 81 MG PO (08:00)
[2024-03-19] MEDS: THERAGRAN 1 TABLET PO (08:00)
[2024-03-19] MEDS: EFFEXOR XR 150 MG PO ×2 (08:01→19:58)
[2024-03-19] MEDS: COREG PO (08:53)
--- NOTE | 2024-03-19 09:45 | W.PN.HOSP.TC ---
Today's Communication/Plan
-
Change to inpt due to NSVT and TX for cardiomyopathy
Assessment / Plan
Assessment / Plan
Physical Exam
General: Well Developed, Well Nourished and No Apparent Distress
HEENT: NormoCephalic, Moist mucous membranes and Atraumatic
Respiratory: fine basal crackles and some limited air both sides.
Cardiac: S1/S2 and Regular Rhythm; No Murmur or Rub
GI: Soft, Non Tender, Non Distended and Normal Bowel Sounds; No Organomegaly
Musculoskeletal: No Clubbing, No Cyanosis and No Edema
Skin: No Rash
Neuro: Nonfocal/grossly intact
Psych: calm, not anxious this morning
# acute on chronic heart failure with reduced EF
c/w Lasix
Will f/w weight
Echo
Appreciate cardiology input
I think her sob exacerbates underlying anxiety
Primary tie sawyer Dr Loyola
# Nonsustained V. tach
- asymptomatic
-EKG shows sinus tachycardia with PACs
-Magnesium normal at 2.3. K around 4
-Telemetry monitoring
#Anxiety/depression
As mentioned. I believe her sob exacerbates underlying anxiety
-Continue alprazolam
-Continue venlafaxine
-patient requesting [facility] outpatient psychological services, rifle case repairer consulted
Coronary artery disease
No chest pain
-Continue aspirin, statin
Chronic kidney disease stage IIIb
-Renal function at baseline
Hypothyroidism
-Continue levothyroxine
DNR/DNI
DVT prophylaxis�heparin
Cardiac diet
Total time spent to see the patient, examine the patient on the floor, review data and lab results, discuss treatment plan with patient, nursing staff around 55 minutes
Anticipated Discharge: 24 - 48 hours
Subjective/Interval History
-
Date of Service: March 19, 2024
No chest pain
No sob but admits to sob at times
Objective Data
-
Labs:
Laboratory Results
03/19/24
05:41
Sodium 140
Potassium 4.1
Chloride 106
Carbon Dioxide 27
BUN 27 H
Creatinine 1.3 H
Glucose 94
Calcium 9.3
Vital Signs:
Vital Signs
Temp Pulse Resp BP Pulse Ox
98.7 F 92 18 161/93 94
03/19/24 07:30 03/19/24 07:30 03/19/24 07:30 03/19/24 07:30 03/19/24 07:30
I&O
03/18/24 03/19/24 03/20/24
06:59 06:59 06:59
Intake Total 240 / 240
Output Total 800 / 800
Balance -560 / -560
[2024-03-19] MEDS: KCL 20 MEQ PO (10:09)
[2024-03-19] MEDS: COREG 12.5 MG PO ×2 (10:09→19:54)
[2024-03-19 11:03] VITALS: BP 151/90
[2024-03-19] MEDS: XANAX 0.5 MG PO ×2 (13:29→19:55)
[2024-03-19 15:24] VITALS: BP 143/70
[2024-03-19] MEDS: LIPITOR 20 MG PO (17:36)
[2024-03-19 19:30] VITALS: BP 146/82
[2024-03-19 23:14] VITALS: BP 142/75
[2024-03-20] VITALS (9 sets, daily range): BP systolic 120–173; BP diastolic 60–96; PULSE 79; O2SAT 93; BMI 37.3
[2024-03-20] MEDS: XANAX 0.5 MG PO ×3 (03:51→22:46)
[2024-03-20] MEDS: SYNTHROID 137 MCG PO (03:54)
--- NOTE | 2024-03-20 09:59 | W.PN.HOSP.TC ---
Today's Communication/Plan
-
Psych evaluation
Check urine test
Order PT/OT
Assessment / Plan
Assessment / Plan
Physical Exam
General: Well Developed, Well Nourished and No Apparent Distress
HEENT: NormoCephalic, Moist mucous membranes and Atraumatic
Respiratory: fine basal crackles and some limited air both sides.
Cardiac: S1/S2 and Regular Rhythm; No Murmur or Rub
GI: Soft, Non Tender, Non Distended and Normal Bowel Sounds; No Organomegaly
Musculoskeletal: No Clubbing, No Cyanosis and No Edema
Skin: No Rash
Neuro: Nonfocal/grossly intact
Psych: calm, no agitation, depressed mood.
#Anxiety/depression
she seems depressed with lack of energy
-Continue alprazolam, she is asking for it every 8 hours
-Continue venlafaxine, already on high dose
- Check urine for reporting weakness. No fever or leukocytosis. Order PT/OT
- Will ask Psych doctor for evaluation.
# acute on chronic heart failure with reduced EF
c/w Lasix
Echo should stable LVEF at 40% /Global hypokinesis, Mild /MR.
Appreciate cardiology input
Primary machinist Dr Loyola
# Nonsustained V. tach
- Increased dose of Coreg
- asymptomatic
-EKG showed sinus tachycardia with PACs
-Magnesium normal at 2.3. K around 4
-Telemetry monitoring
Coronary artery disease
No chest pain
-Continue aspirin, statin
Chronic kidney disease stage IIIb
-Renal function at baseline
Hypothyroidism
-Continue levothyroxine
DNR/DNI
DVT prophylaxis�heparin
Cardiac diet
Total time spent to see the patient, examine the patient on the floor, review data and lab results, discuss treatment plan with patient, nursing staff around 55 minutes
Anticipated Discharge: 24 - 48 hours
Subjective/Interval History
-
Date of Service: March 20, 2024
She feels unwell ( tired, anxious)
No chest pain
Objective Data
-
Vital Signs:
Vital Signs
Temp Pulse Resp BP Pulse Ox
97.8 F 86 16 161/96 95
03/20/24 07:00 03/20/24 07:00 03/20/24 07:00 03/20/24 07:00 03/20/24 07:00
I&O
03/19/24 03/20/24 03/21/24
06:59 06:59 06:59
Intake Total 240 / 240 1110 / 1110
Output Total 800 / 800 700 / 700
Balance -560 / -560 410 / 410
[2024-03-20] MEDS: THERAGRAN 1 TABLET PO (10:05)
[2024-03-20] MEDS: LASIX 60 MG PO (10:05)
[2024-03-20] MEDS: EFFEXOR XR 150 MG PO ×2 (10:06→22:34)
[2024-03-20] MEDS: LOW STRENGTH ASPIRIN 81 MG PO (10:07)
[2024-03-20] MEDS: HEPARIN 5000 UNITS SC ×2 (10:07→22:35)
[2024-03-20] MEDS: COREG 12.5 MG PO ×2 (10:07→22:36)
[2024-03-20] MEDS: EFFEXOR XR 75 MG PO (10:07)
--- NOTE | 2024-03-20 11:34 | CON.MD ---
Consultation - Medical
-
patient seen chart reviewed. discussed w nursing and cm. daughter at bedside. the patient is an 84 year old woman who has been depressed on and off for most of her life. she does not feel she has experienced sx of bipolar disorder and answered in
the negative to questions re screening of bipolar disorder. she has taken effexor for years current dose 375 and increased from 225 relatively recently by her pcp. she has also been taking xanax recently inc to o.5 mg tid by her pcp for extreme
anxiety. she is anxious all of the time and it keeps her from sleeping. appetite is poor w some weight loss. energy is poor. she does not enjoy much. she has made comments to her d and sister re suicidality eg 'you don't have to think about that
i won't be here much longer', 'i can't take this any longer.' she admits she has thought of suicide but has not made any plans nor at this point does she see herself taking her own life but the stress of continuing to feel this way is severe. there
is nothing to suggest psychosis. she is stressed by constant knee pain bilaterally. she needs knee replacements eventually.
past psych hx no hospital stays. see above. the only other med she recalls taking in klonopin and she feels xanax is more helpful
medical patient is here bc shorness of breath . 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 hx chf htn hld ckd cardiomyopathy carotid stenosis hypothyoid bilat hip replacements osteoarthritis ecg sinus tach pac's w otherwise nl. vital signs bp w some systolic
elevations
fm mgm via suicide sister w hx depression and anx
substance abuse none
social hx four kids who are aupportive and in touch w patient eight grands has + friends resides at [facility].
mse alert ox3 cooperative pleasant speech and thought process nl mood is depressed and anxious affect normal patient admits to si but no intent or plan see above aver intelligence insight judgment ok
dx major depression recurrent severe unspecified anxiety
plan discussed adding seroquel for both depression and severe anxiety. explained side effects (immanuel weight gain qtc )risks vs benefits patient is not demented but did share the black box warning in elderly dementia patients also explained risks of
sedation falls memory issues w bzp's would hope that the use of seroquel will minimize the use of xanax. continue effexor for now although watch systolic bp as effexor can increase bp. patient and d are interested in geriatric psych hospital.
patient says she cannot imagine going back to [facility] given how she feels. spoke with cm re exploring hosp in a geriatirc psych unit which does seem to be appropriate. check b12 folate vit d and tsh reflex to t4 family also asked for ua to
r.o infection. will follow
[2024-03-20] MEDS: SEROQUEL 12.5 MG PO (12:32)
--- NOTE | 2024-03-20 12:53 | W.PN.CARDCBS ---
Addendum entered and electronically signed by Lawson Calderon MD 03/20/24 15:42:
I saw and examined the patient.
The Soil Checker's note was reviewed and I agree with the note.
Comment:
GEN: No distress, awake, Ox3
HEENT: supple, anicteric, mmm
LUNGS: CTA, no wheezes/rales
CV: Reg, S1/S2, 1/6 syst LSB, no gallop
ABD: soft, BS+, NT/ND
EXT: No edema
NEURO: Gross non-focal
SKIN: No rash
PLan:
Tele is stable on Coreg 12.5mg po bid
Cont Lasix 60mg daily
Creat 1.3. consider JUAN PABLO/ARB /Entresto as outpt if Creat stable
Cont to follow telemetry peripherally
Agree with psych eval.
Original Note:
Today's Communication / Plan
-
po lasix 60mg daily
coreg 12.5mg BID
treatment of anxiety per primary service/psych
will arrange OP cardiac follow up
Impression / Plan
-
PCP: Everett Etienne
Modern Dancer: Dr. Loyola
Impression:
Presents 03/18/2024 with short of breath and tachycardia
Anxiety
Brief runs of VT 4-8 beats
Acute on chronic heart failure with reduced ejection fraction, proBNP 6720
Cardiomyopathy
Chronic heart failure with reduced ejection fraction
Chronic kidney disease, stage IIIb
Hypertension
Hyperlipidemia
Anxiety depression
Carotid stenosis
Hypothyroidism
IBS/diverticulosis
12/12/2023: EF 40 to 45% with mild concentric LVH and global hypokinesis. Mild MR
Echo 09/25/2023: EF 30-35%, global hypokinesis, mild to moderate MR, mild TR, pulmonary artery systolic pressure is 36 mmHg, pleural effusion seen
Echo February 2023, EF 55 to 60% with mild LVH, mild MR, mild aortic stenosis
ECHO 03/19/2024: EF 40 to 45%, mild concentric LVH, global hypokinesis, stage I diastolic dysfunction, mild MR, mild with peak/mean gradients 23/14 mmHg, TYREL 1.6 cm�, no significant change compared to prior
Plan:
-She reports significant anxiety. Psych following
-[place] to be in acute CHF on presentation after running out of her Lasix for several days. She diuresed well and is now back on p.o. Lasix 60 mg daily.
-She had been having NSVT in ER, as well as brief atrial tachycardia. Her Coreg was increased to 12.5 mg twice daily. She remains with PVCs at times, however no further NSVT or A. tach
-K/mag stable from 03/18-03/19
-Echo with results as above, EF stable at 40 to 45%. Her guideline directed medical therapy has been limited by CKD with vacillating creatinines. Continue beta-galen
-She does report history of UTIs in the past so will avoid SGLT2 for now
-Will arrange outpatient cardiac follow-up
HPI 03/19/2024:
Patient is an 84-year-old female with past medical history significant for chronic heart failure with reduced ejection fraction, hypothyroidism, anxiety/depression, CKD, hypertension and hyperlipidemia who was sent in from her primary care office on
03/18/2023 with complaints of shortness of breath and tachycardia. Patient admitted that she had ran out of her Lasix for 3 days prior to seeing her family doctor. Patient denied edema or increased weight gain. She denies shortness of breath but
admitted to feeling anxious. Her outpatient dose of Xanax was increased to 3 times a day. Chest x-ray showed no acute abnormality. proBNP was found to be elevated at 6720. EKG showed sinus tachycardia at 109 bpm. Troponin was undetectable..
She was provided IV Lasix and Xanax in emergency department. Patient was ready to be discharged however she developed 8 beats of ventricular tachycardia prompting admission. Potassium was 4.6 and magnesium was 2.3.
Progress Note - Modern Dancer
Subjective
Date of Service: March 20, 2024
Denies chest pain, shortness of breath, palpitations. Reports continues with anxiety
Objective
Labs:
03/18/24 18:45
03/19/24 05:41
Labs
Hgb 15.0 g/dL (12.0-16.0) 03/18/24 18:45
Hct 44.3 % (37.0-47.0) 03/18/24 18:45
Plt Count 270 10^3/uL (130-400) 03/18/24 18:45
Sodium 140 mmol/L (135-145) 03/19/24 05:41
Potassium 4.1 mmol/L (3.5-5.1) 03/19/24 05:41
BUN 27 mg/dl (7-17) H 03/19/24 05:41
Creatinine 1.3 mg/dL (0.6-1.0) H 03/19/24 05:41
Glucose 94 mg/dl (70-99) 03/19/24 05:41
Troponins
03/18/24
16:05
Troponin I < 0.012
Vital Signs and I&O:
Vital Signs
Temp Pulse Resp BP Pulse Ox
97.8 F 89 17 129/78 95
03/20/24 10:50 03/20/24 10:50 03/20/24 10:50 03/20/24 10:50 03/20/24 10:50
Vital Signs
Temp Pulse Resp BP Pulse Ox
97.8 F 89 17 129/78 95
03/20/24 10:50 03/20/24 10:50 03/20/24 10:50 03/20/24 10:50 03/20/24 10:50
Intake & Output
03/18/24 03/19/24 03/20/24 03/21/24
07:59 07:59 07:59 07:59
Intake Total 240 / 240 1110 / 1110
Output Total 800 / 800 700 / 700
Balance -560 / -560 410 / 410
Physical Exam
Physical Exam
GEN: No distress, awake, alert, oriented x3. Obese
HEENT: supple, anicteric, mmm, EOMI
LUNGS: CTA bilaterally, no wheezes/rales
CV: Reg, S1/S2, 1/6 syst LSB
ABD: soft, BS+, NT/ND
EXT: No cyanosis, clubbing. trace edema of B/L LE
NEURO: Gross non-focal
SKIN: Warm, pink, dry. No rash
[2024-03-20] MEDS: LIPITOR 20 MG PO (17:03)
[2024-03-20 18:13] LABS: Urine Albumin Trace (Neg - Trace); Urine Bilirubin Negative (Negative); Urine Character Very Cloudy (Clear); Urine Color Yellow; Urine Glucose Negative (Negative); Urine Ketone Negative (Negative); Urine Leukocyte 2+ (Negative); Urine Nitrite Positive (Negative); Urine Occult Blood Trace (Negative); Urine Specific Gravity 1.015 (<1.030); Urine Urobilinogen Negative (Neg - 1+)
--- NOTE | 2024-03-20 18:15 | PTCARENOTE ---
Straight cath for UA per Dr. Banks.
[2024-03-20 18:42] LABS: Urine Bacteria Moderate (Negative); Urine Red Blood Cell 0-2 /HPF (0-2); Urine White Cell >100 /HPF (0-5)
[2024-03-20] MEDS: SEROQUEL 25 MG PO (22:35)
[2024-03-21 03:00] VITALS: BP 139/80
[2024-03-21] MEDS: SYNTHROID 137 MCG PO (05:46)
[2024-03-21 06:00] VITALS: BMI 37.6
[2024-03-21 07:00] VITALS: BP 148/84
[2024-03-21] MEDS: COREG 12.5 MG PO ×2 (08:44→20:10)
[2024-03-21] MEDS: LASIX 60 MG PO (08:45)
[2024-03-21] MEDS: THERAGRAN 1 TABLET PO (08:45)
[2024-03-21] MEDS: SEROQUEL 12.5 MG PO (08:45)
[2024-03-21] MEDS: LOW STRENGTH ASPIRIN 81 MG PO (08:45)
[2024-03-21] MEDS: HEPARIN 5000 UNITS SC ×2 (08:45→20:10)
[2024-03-21] MEDS: EFFEXOR XR 150 MG PO ×2 (08:45→20:09)
[2024-03-21] MEDS: EFFEXOR XR 75 MG PO (08:45)
[2024-03-21] MEDS: XANAX 0.5 MG PO ×2 (08:45→20:24)
--- NOTE | 2024-03-21 10:57 | W.PN.CARDCBS ---
Today's Communication / Plan
-
continue coreg 12.5mg BID
p.o. Lasix 60 mg daily
BMP/mag in 1 week upon DC
OP cardiac follow up arranged
will plan to sign off
Impression / Plan
-
PCP: Everett Etienne
Rotary Cutter: Dr. Loyola
Impression:
Presents 03/18/2024 with short of breath and tachycardia
Anxiety
Brief runs of VT 4-8 beats
Acute on chronic heart failure with reduced ejection fraction, proBNP 6720
Cardiomyopathy
Chronic heart failure with reduced ejection fraction
Chronic kidney disease, stage IIIb
Hypertension
Hyperlipidemia
Anxiety depression
Carotid stenosis
Hypothyroidism
IBS/diverticulosis
12/12/2023: EF 40 to 45% with mild concentric LVH and global hypokinesis. Mild MR
Echo 09/25/2023: EF 30-35%, global hypokinesis, mild to moderate MR, mild TR, pulmonary artery systolic pressure is 36 mmHg, pleural effusion seen
Echo February 2023, EF 55 to 60% with mild LVH, mild MR, mild aortic stenosis
ECHO 03/19/2024: EF 40 to 45%, mild concentric LVH, global hypokinesis, stage I diastolic dysfunction, mild MR, mild with peak/mean gradients 23/14 mmHg, TYREL 1.6 cm�, no significant change compared to prior
Plan:
-She reports significant anxiety. Psych following. for possible geriatric psych unit upon DC
-Herron to be in acute CHF on presentation after running out of her Lasix for several days. She diuresed well and is now back on p.o. Lasix 60 mg daily.
-She had been having NSVT in ER, as well as brief atrial tachycardia. Mostly SR with 2 brief runs of Atach and 1 3-beat run of NSVT overnight on review of tele. no labs drawn this AM. Her Coreg was increased to 12.5 mg BID this admission, continue
-K/mag stable from 03/18-03/19. check BMP/mag in 1 week as OP
-Echo with results as above, EF stable at 40 to 45%. Her guideline directed medical therapy has been limited by CKD with vacillating creatinines. Continue beta-galen
-She does report history of UTIs in the past so will avoid SGLT2 for now
-Outpatient cardiac follow-up arranged
-d/w patient and son at bedside
[facility] 03/19/2024:
Patient is an 84-year-old female with past medical history significant for chronic heart failure with reduced ejection fraction, hypothyroidism, anxiety/depression, CKD, hypertension and hyperlipidemia who was sent in from her primary care office on
03/18/2023 with complaints of shortness of breath and tachycardia. Patient admitted that she had ran out of her Lasix for 3 days prior to seeing her family doctor. Patient denied edema or increased weight gain. She denies shortness of breath but
admitted to feeling anxious. Her outpatient dose of Xanax was increased to 3 times a day. Chest x-ray showed no acute abnormality. proBNP was found to be elevated at 6720. EKG showed sinus tachycardia at 109 bpm. Troponin was undetectable..
She was provided IV Lasix and Xanax in emergency department. Patient was ready to be discharged however she developed 8 beats of ventricular tachycardia prompting admission. Potassium was 4.6 and magnesium was 2.3.
Progress Note - Rotary Cutter
Subjective
Date of Service: March 21, 2024
denies CP, SOB, palpitations. feels her anxiety is better today
Objective
Labs:
03/18/24 18:45
03/19/24 05:41
Labs
Hgb 15.0 g/dL (12.0-16.0) 03/18/24 18:45
Hct 44.3 % (37.0-47.0) 03/18/24 18:45
Plt Count 270 10^3/uL (130-400) 03/18/24 18:45
Sodium 140 mmol/L (135-145) 03/19/24 05:41
Potassium 4.1 mmol/L (3.5-5.1) 03/19/24 05:41
BUN 27 mg/dl (7-17) H 03/19/24 05:41
Creatinine 1.3 mg/dL (0.6-1.0) H 03/19/24 05:41
Glucose 94 mg/dl (70-99) 03/19/24 05:41
Troponins
03/18/24
16:05
Troponin I < 0.012
Vital Signs and I&O:
Vital Signs
Temp Pulse Resp BP Pulse Ox
97.8 F 80 18 148/84 93
03/21/24 07:00 03/21/24 08:45 03/21/24 07:00 03/21/24 08:45 03/21/24 07:00
Vital Signs
Temp Pulse Resp BP Pulse Ox
97.8 F 80 18 148/84 93
03/21/24 07:00 03/21/24 08:45 03/21/24 07:00 03/21/24 08:45 03/21/24 07:00
Intake & Output
03/19/24 03/20/24 03/21/24 03/22/24
07:59 07:59 07:59 07:59
Intake Total 240 / 240 1110 / 1110 1320 / 1320
Output Total 800 / 800 700 / 700 600 / 600
Balance -560 / -560 410 / 410 720 / 720
Physical Exam
Physical Exam
GEN: No distress, awake, alert, oriented x3. Obese. sitting in chair
HEENT: supple, anicteric, mmm, EOMI
LUNGS: CTA bilaterally, no wheezes/rales
CV: Reg, S1/S2, 1/6 syst LSB
ABD: soft, BS+, NT/ND
EXT: No cyanosis, clubbing. trace edema of B/L LE
NEURO: Gross non-focal
SKIN: Warm, pink, dry. No rash
[2024-03-21 11:00] VITALS: BP 111/65
--- NOTE | 2024-03-21 11:14 | W.PN.HOSP.TC ---
Today's Communication/Plan
-
Await dc planning
Rocephin
Coreg
Assessment / Plan
Assessment / Plan
Physical Exam
General: Well Developed, Well Nourished and No Apparent Distress
HEENT: NormoCephalic, Moist mucous membranes and Atraumatic
Respiratory: fine basal crackles and some limited air both sides.
Cardiac: S1/S2 and Regular Rhythm; No Murmur or Rub
GI: Soft, Non Tender, Non Distended and Normal Bowel Sounds; No Organomegaly
Musculoskeletal: No Clubbing, No Cyanosis and No Edema
Skin: No Rash
Neuro: Nonfocal/grossly intact
Psych: calm, no agitation, normal mood.
#Anxiety/depression
she seems not depressed
She took the new medicine and slept well.
-Continue alprazolam, she is asking for it every 8 hours
-Continue venlafaxine, already on high dose
- Appreciate psych input
# Suspect UTI
urine was positive for WBC, bacteria.
STart on empiric Rocephin unti urine culture is back
No fever or leukocytosis. Order PT/OT
# acute on chronic heart failure with reduced EF
c/w Lasix
Echo should stable LVEF at 40% /Global hypokinesis, Mild /MR.
Appreciate cardiology input
Primary burrer marker axle Dr Loyola
# Nonsustained V. tach
- Increased dose of Coreg
- asymptomatic
-EKG showed sinus tachycardia with PACs
-Magnesium normal at 2.3. K around 4
-Telemetry monitoring
Coronary artery disease
No chest pain
-Continue aspirin, statin
Chronic kidney disease stage IIIb
-Renal function at baseline
Hypothyroidism
-Continue levothyroxine
DNR/DNI
DVT prophylaxis�heparin
Cardiac diet
Total time spent to see the patient, examine the patient on the floor, review data and lab results, discuss treatment plan with patient, nursing staff around 57 minutes
Anticipated Discharge: Today
Subjective/Interval History
-
Date of Service: March 21, 2024
She feels better, slept well
Objective Data
-
Vital Signs:
Vital Signs
Temp Pulse Resp BP Pulse Ox
97.8 F 80 18 148/84 93
03/21/24 07:00 03/21/24 08:45 03/21/24 07:00 03/21/24 08:45 03/21/24 07:00
I&O
03/20/24 03/21/24 03/22/24
06:59 06:59 06:59
Intake Total 1110 / 1110 1320 / 1320
Output Total 700 / 700 600 / 600
Balance 410 / 410 720 / 720
[2024-03-21 11:47] LABS: Vitamin D, 25-OH*** 44.1 ng/mL (30-80)
[2024-03-21 12:00] LABS: TSH Reflex To Free T4 0.03 uIU/ml (0.47-4.68)
[2024-03-21 12:32] LABS: Free T4 2.09 ng/dl (0.78-2.19)
[2024-03-21 12:36] LABS: Folate > 20.0 ng/ml (2.76-20); Vitamin B12 592 pg/ml (239-931)
[2024-03-21] MEDS: ROCEPHIN 1000 MG IV (12:37)
[2024-03-21] MEDS: STERILE WATER FOR INJECTION 10 ML IV (12:37)
--- NOTE | 2024-03-21 12:50 | W.PN.UPDATE ---
Update Note
Progress Note Update
patient seen chart reviewed. discussed w nursing. son and d in law at bedside. discussed w cm. the patient reported some improvement in anxiety thus far with seroquel. she said she slept better last evening and the am dose is providing her w some
relief today. she is not sedated. would continue w meds as ordered. cm checking into hospitalization on a [facility]. there is a chance she might improved sufficiently w seroquel added to her meds so hosp can be avoided. i proposed this to
her and she said she would like to feel better for a few days before making that decision. will see her in the am
[2024-03-21 15:00] VITALS: BP 124/77
[2024-03-21] MEDS: LIPITOR 20 MG PO (17:31)
--- NOTE | 2024-03-21 18:29 | CM ---
met with patient and family at bedside.she lives in [place] at [facility],no moise,her bed and bath is on first floor,she amb with a rw and uses a scooter for longer distances.diane pcp is dr houston and uses [facility].he feels she is not able to
handle returning to [facility] due to her high anxiety.seen by psych who recommended a [facility] psych stay.
there is a bed tomorrow at [facility] psych unit per charles [phone])pending insurance auth .i have faxed clinicals to [facility] to [phone] per janis vernon at [facility].janis phone is [phone].i also contacted cherri to keep her in the
loop.hopefully we can obtain auth tomorrow.plan [facility] psych unit once auth is received.
[2024-03-21 19:28] VITALS: BP 134/76
[2024-03-21] MEDS: SEROQUEL 25 MG PO (20:09)
[2024-03-21 23:18] VITALS: BP 117/65
[2024-03-22 03:15] VITALS: BP 123/71
[2024-03-22 06:00] VITALS: BMI 37.3
[2024-03-22] MEDS: SYNTHROID 137 MCG PO (06:35)
[2024-03-22 07:00] VITALS: BP 138/78
[2024-03-22] MEDS: LOW STRENGTH ASPIRIN 81 MG PO (09:03)
[2024-03-22] MEDS: EFFEXOR XR 75 MG PO (09:03)
[2024-03-22] MEDS: EFFEXOR XR 150 MG PO (09:04)
[2024-03-22] MEDS: COREG 12.5 MG PO (09:04)
[2024-03-22] MEDS: HEPARIN 5000 UNITS SC (09:05)
[2024-03-22] MEDS: SEROQUEL 12.5 MG PO (09:05)
[2024-03-22] MEDS: THERAGRAN 1 TABLET PO (09:05)
[2024-03-22] MEDS: LASIX 60 MG PO (09:05)
[2024-03-22] MEDS: XANAX 0.5 MG PO (09:09)
[2024-03-22] MEDS: DESENEX/MITRAZOL/ZEASORB 1 APPLIC TOPICAL (09:09)
[2024-03-22 10:15] VITALS: BP 135/77; PULSE 115; PULSE 87; O2SAT 96
--- NOTE | 2024-03-22 10:40 | W.PN.HOSP.TC ---
Addendum entered and electronically signed by Nicole Banks MD 03/22/24 15:01:
Addendum
d/w supportive employment case manager, bed is available, sent for auth and received
COVID test negative
Total discharge time spent to see the patient, examine the patient on the floor, review data and lab results, discuss discharge plan with patient, supportive employment case manager, nursing staff around 65 minutes
Original Note:
Today's Communication/Plan
-
.DC planning
Assessment / Plan
Assessment / Plan
Physical Exam
General: Well Developed, Well Nourished and No Apparent Distress
HEENT: NormoCephalic, Moist mucous membranes and Atraumatic
Respiratory: Clear but limited. .
Cardiac: S1/S2 and Regular Rhythm; No Murmur or Rub
GI: Soft, Non Tender, Non Distended and Normal Bowel Sounds; No Organomegaly
Musculoskeletal: No Clubbing, No Cyanosis and No Edema
Skin: No Rash
Neuro: Nonfocal/grossly intact. AAOX3.
Psych: calm, no agitation, normal mood.
#Anxiety/depression
she seems not depressed
She took the new medicine. She reports difficulty in sleeping last night.
-Continue alprazolam, she is asking for it every 8 hours
-Continue venlafaxine, already on high dose
- Appreciate psych input
# E Coli UTI
No flank pain or dysuria.
Started on empiric Rocephin.
No fever or leukocytosis. Ordered PT/OT
# acute on chronic heart failure with reduced EF
c/w Lasix
Echo should stable LVEF at 40% /Global hypokinesis, Mild /MR.
Appreciate cardiology input
Primary time study clerk Dr Loyola
# Nonsustained V. tach
- Increased dose of Coreg
- asymptomatic
-EKG showed sinus tachycardia with PACs
-Magnesium normal at 2.3. K around 4
-Telemetry monitoring
# Coronary artery disease
No chest pain
-Continue aspirin, statin
#Chronic kidney disease stage IIIb
-Renal function at baseline
#Hypothyroidism
-Continue levothyroxine
DNR/DNI
DVT prophylaxis�heparin
Cardiac diet
Total time spent to see the patient, examine the patient on the floor, review data and lab results, discuss treatment plan with patient, nursing staff around 55 minutes
Anticipated Discharge: Today
Subjective/Interval History
-
Date of Service: March 22, 2024
She reported problems staying asleep last night
No chest pain
No sob
Objective Data
-
Vital Signs:
Vital Signs
Temp Pulse Resp BP Pulse Ox
97.5 F 74 18 138/78 96
03/22/24 07:00 03/22/24 07:00 03/22/24 07:00 03/22/24 07:00 03/22/24 07:00
I&O
03/21/24 03/22/24 03/23/24
06:59 06:59 06:59
Intake Total 1320 / 1320 1020 / 1020
Output Total 600 / 600
Balance 720 / 720 1020 / 1020
[2024-03-22 11:00] VITALS: BP 104/67
--- NOTE | 2024-03-22 11:57 | W.PN.UPDATE ---
Update Note
Progress Note Update
patient seen chart reviewed. spoke with case management. the patient was sitting in a chair at the bedside. she continues to feel that the seroquel has helped her with anxiety although she is still anxious. she said she asked for xanax prn last
evening and nursing was reluctant to give it to her. explained that hopefully the seroquel will supplant the xanax and help w both depression and anxiety. explained again the negative impact of bzp's in the older population. [facility]. patient does not feel sedated from am seroquel. jail need to monitor re weight gain. mrs lincoln would not benefit from weight gain.
[2024-03-22] MEDS: STERILE WATER FOR INJECTION 10 ML IV (12:12)
[2024-03-22] MEDS: ROCEPHIN 1000 MG IV (12:12)
--- NOTE | 2024-03-22 12:52 | CM ---
Addendum entered by BERNA Booker 03/22/24 13:45:
IMM signed on chart.
Addendum entered by BERNA Booker 03/22/24 13:07:
Attending updated.
Original Note:
Received call from Jessica at [facility] who stated that patient has been approved for 5 days-NRD 03/26, call [phone]. Auth# [id number].
Placed a call to Ke in admissions at [facility], who confirmed that he can take patient today. He requested PCR. Will text attending.
#For report [phone] fax#[phone]
He requested transport be arranged after 15:00.
Will complete medical necessity and transfer sheet.
Plan: Case management will continue to follow and assist with discharge planning. [facility].
--- NOTE | 2024-03-22 14:05 | W.DCSUMMARY ---
Discharge Summary
Discharge Data
Date of Admission: 03/19/24
Date of Discharge: 03/22/24
-
Pending Results: No
Hospital Course
84 years old female presented to the hospital with history of shortness of breath and tachycardia. Patient had an anxiety disorder and felt it was not well controlled. Patient was taking Xanax for treatment of anxiety in addition to the usual
dose of Effexor. Patient was evaluated by engine builder. She had brief runs of nonsustained ventricular tachycardia. Cardiology doctor increased the dose of carvedilol to 12.5 mg twice a day. Patient reported that she ran out of Lasix. She was
found in mild acute decompensated heart failure. Cardiac proBNP was 6700. Chest radiography showed no acute abnormalities. She did not have cough or hypoxia. She was put on her usual dose of furosemide, 60 mg. Patient had a chronic kidney
disease stage IIIb. Creatinine function remained normal. Urine test was consistent with urinary tract infection with urine culture positive for E. coli infection. Patient was given antibiotic. She did not have fever, dysuria or leukocytosis.
Patient was seen by psychiatrist upon request. Psychiatrist discussed with the patient the addition of Seroquel to avoid using benzodiazepines due to their potential side effects. Patient verbalized understanding to potential side effect of
Seroquel including weight gain. Psychiatry recommended geriatric inpatient psychiatry admission for further monitoring and follow-up. ethanol operations manager was involved. Patient was evaluated by physical therapy and recommended home care services.
Patient remained hemodynamically stable. Patient was discharged to [facility] inpatient geriatric psychiatry unit in a stable condition.
Discharge Plan
-
Patient Disposition: Psych Facility
Discharge Diagnosis/Procedures: Anxiety/depression
Continue as needed dose of Xanax, Effexor. Seroquel. Patient was seen by psychiatry Doctor.
Acute on chronic heart failure with reduced ejection fraction, continue with oral Lasix
Non-sustained ventricular tachycardia, increased the dose of Coreg.
E. coli urine tract infection, continue with cefdinir.
Diet: As tolerated
Blood Work: BMP/magnesium in 1 week
Specialty Instructions: Weigh Daily- Call MD for wt gain/loss 3 lbs overnight/5 lbs in 1 week
Instructions: *[facility] Heart Failure Instructions
Referrals:
Serafin Loyola MD [Active] - 04/17/24 1:20 pm (You have a cardiology follow-up appointment at the [facility] office in [facility]. Please call with questions)
Red Etienne MD [Family Provider] -
Prescriptions:
New
carvedilol 12.5 mg Tablet
12.5 mg PO BID Qty: 60 0RF
quetiapine 25 mg Tablet
12.5 mg PO DAILY Qty: 30 0RF
quetiapine 25 mg Tablet
25 mg PO HS Qty: 30 0RF
alprazolam 0.5 mg Tablet
0.5 mg PO TIDPRN PRN (Reason: Anxiety) Qty: 10 0RF
cefdinir 300 mg capsule
300 mg PO DAILY Qty: 3 0RF
Rx Instructions:
Start 03/23
Continued
atorvastatin 20 MG tablet
20 mg PO QPM
levothyroxine [Synthroid] 137 mcg Tablet
137 mcg PO DAILY
venlafaxine [Effexor XR] 150 mg Capsule,Extended Release 24hr
150 mg PO BID
furosemide [Lasix] 20 mg Tablet
60 mg PO DAILY
aspirin [Children's Aspirin] 81 mg Tablet,Chewable
81 mg PO DAILY Qty: 0 0RF
venlafaxine 75 mg capsule,extended release 24hr
75 mg PO DAILY
Centrum Adult 50 Plus 80 mcg Tablet,Chewable
1 tab PO DAILY
Discontinued
carvedilol 6.25 mg tablet
6.25 mg PO BID
alprazolam 0.5 mg tablet
0.5 mg PO BID
Patient Comments:
03/18/2024: last filled 02/16/24, 60 tabs for 30 days from [facility]
Discharge Orders:
Discharge Patient (As Directed); Ordered 03/22/24
Ordered By: Nicole Banks
Discharge Date and Time
Print Language: SUDANESE
[2024-03-22 14:12] LABS: COVID-19 Antigen Negative (Negative)
--- NOTE | 2024-03-22 14:49 | W.HF.CON ---
Heart Failure
- LV Function
Left ventricular function study result: LV Ejection fraction >40%
Ejection Fraction Percentage: 40-45
- ARNI
Patient already on ARNI: No
Heart Failure ARNI Not Indicated: LV Ejection Fraction >/= 40%
- ACEI/ARB
Patient already on ACEI/ARB: No
Heart Failure ACEI/ARB Not Indicated: LV Ejection Fraction > 40%
- Beta Radha
Patient already on Evidence Based Beta Radha: Yes
- Mineralocorticord Receptor Antagonist
Patient already on MRA: No
Heart Failure MRA Not Indicated: LV Ejection Fraction > 40%
- SGLT-2 Inhibitor
Patient already on SGLT-2 Inhibitor: No
Heart Failure SGLT-2 Inhibitor Not Indicated: LV Ejection Fraction >40%
- NYHA CHF Classification
NYHA CHF Classification Level: Class III - Symptoms w/ min exertion, interferes w/ nml daily activity
- ACC/AHA Stage
ACC/AHA Stage: Stage C: Symptomatic Heart Failure
[2024-03-22 15:00] VITALS: BP 111/65
== END 2024-03-22 18:10 | DRG 291 ==
LOC: 3 WEST ACU 09:53
PROVIDERS: Physician Assistant Medical; ADMITTING PHYSICIAN Hospitalist; ATTENDING PHYSICIAN Internal Medicine; CONSULT PHYSICIAN Internal Medicine Cardiovascular Disease; CONSULT PHYSICIAN Psychiatry & Neurology Psychiatry; EMERGENCY PHYSICIAN Student in an Organized Health Care Education/Training Program; FAMILY PHYSICIAN Internal Medicine Geriatric Medicine
DX: I13.0 Hypertensive heart and chronic kidney disease with heart failure and stage 1 through stage 4 chronic kidney disease, or unspecified chronic kidney disease (principal); I50.23 Acute on chronic systolic (congestive) heart failure; I47.29 Other ventricular tachycardia; F33.2 Major depressive disorder, recurrent severe without psychotic features; N39.0 Urinary tract infection, site not specified; B96.20 Unspecified Escherichia coli [E. coli] as the cause of diseases classified elsewhere; E78.00 Pure hypercholesterolemia, unspecified; Z66 Do not resuscitate; N18.32 Chronic kidney disease, stage 3b; E03.9 Hypothyroidism, unspecified; F41.9 Anxiety disorder, unspecified; I65.29 Occlusion and stenosis of unspecified carotid artery; I42.9 Cardiomyopathy, unspecified; I25.10 Atherosclerotic heart disease of native coronary artery without angina pectoris; T50.1X6A Underdosing of loop [high-ceiling] diuretics, initial encounter; Z91.138 Patient's unintentional underdosing of medication regimen for other reason; Z79.890 Hormone replacement therapy; Z79.82 Long term (current) use of aspirin; Z79.899 Other long term (current) drug therapy; Z11.52 Encounter for screening for COVID-19; Z87.891 Personal history of nicotine dependence
CPT/HCPCS: 71046; 80048; 81003; 81015; 82306; 82607; 82746; 83735; 83880; 84439; 84443; 84484; 85025; 85027; 87070; 87086; 87088; 87147; 87186; 87811; 93005; 93306; 97110; 97116; 97162; 97166; 99285

== ENCOUNTER → 2024-11-26 13:51 | Outpatient (REF) | payer OTHER, SELFPAY | LOC: HWRAD 13:51 | PROVIDERS: ATTENDING PHYSICIAN Urology; FAMILY PHYSICIAN Internal Medicine Geriatric Medicine | DX: D41.01 Neoplasm of uncertain behavior of right kidney (principal) | CPT/HCPCS: 74176 ==